=== PATIENT | male | born 1955 | race Caucasian/White ===

== ENCOUNTER 2017-02-04 10:07 | Inpatient (IN) | payer BC ==
[2017-02-04 10:28] LABS: Glucose,Whole Blood 94 mg/dL (75-99)
[2017-02-04] MEDS ORDERED: SODIUM CHLORIDE 0.9% 1,000 ML IV STA (10:39)
--- NOTE | 2017-02-04 10:42 | ED ---
General Adult HPI - General Chief complaint: Neuro Symptoms/Deficit Stated complaint: memory, visual disturbance, dizziness, headache Time Seen by Provider: 02/04/17 10:33 Source: patient Mode of arrival: wheelchair Limitations: no limitations - History of Present Illness Initial comments: This 61-year-old white male presents with a complaint of having some neurologic complaints. He states that he has had a mild bifrontal headache for the past couple of days. He developed some left arm numbness that went from the end of his fingers all the way up into his left jaw. He also had some slurring of his speech and states that he could not spell words well. He complains of some short-term memory loss. He states that he lost the right side of his lateral vision in both eyes. The onset of symptoms was at approximately 8:00 this morning and has subsequently resolved. He denies any history of CVA or TIA. He denies any weakness. There is no chest pain or shortness of breath. There is no leg pain or swelling. No other complaints or modifying factors. - Related Data Home Medications Medication Instructions Recorded Confirmed Montelukast [Singulair] 10 mg PO HS 12/20/14 02/04/17 Meloxicam [Mobic] 7.5 mg PO DAILY 02/04/17 02/04/17 predniSONE 2.5 mg PO DAILY 02/04/17 02/04/17 Allergies Allergy/AdvReac Type Severity Reaction Status Date / Time Penicillins AdvReac Unknown Verified 02/04/17 11:09 Childhood Review of Systems ROS Statement: Those systems with pertinent positive or pertinent negative responses have been documented in the HPI. ROS Other: All systems not noted in ROS Statement are negative. Past Medical History Past Medical History: Asthma History of Any Multi-Drug Resistant Organisms: None Reported Past Surgical History: No Surgical Hx Reported Past Psychological History: No Psychological Hx Reported Smoking Status: Never smoker Past Alcohol Use History: Rare Past Drug Use History: None Reported General Exam - General Exam Comments Initial Comments: GENERAL: The patient is well nourished and well hydrated. VITAL SIGNS: Heart rate, blood pressure, respiratory rate reviewed as recorded in nurse's notes. EYES: Pupils are round and reactive. Extraocular movements are intact. No conjunctival / lid redness or swelling. ENT: No external evidence of injury, swelling, or ecchymosis. Airway is patent. Throat is clear. NECK: Nontender. No swelling or evidence of injury. No subcutaneous emphysema. Trachea is midline. No thyroid mass. HEART: Regular rate and rhythm. Good peripheral pulses. LUNGS/CHEST: Breath sounds clear and equal bilaterally. No rales, rhonchi, or wheezes. No ecchymosis, subcutaneous emphysema, or tenderness. ABDOMEN: Abdomen soft without tenderness. No palpable masses or organomegaly. No peritoneal signs. No abdominal wall swelling or ecchymosis. EXTREMITIES: No extremity tenderness. Normal muscle tone and function. No thoracolumbar tenderness. NEUROLOGIC: Sensation is grossly intact. Cranial nerve exam reveals face is symmetrical, tongue is midline, speech is clear. SKIN: No abrasions or ecchymosis is noted. No induration or masses noted. PSYCHIATRIC: Alert and oriented. Appropriate behavior and judgment. Limitations: no limitations Course Vital Signs 02/04/17 10:12 Temperature 97.8 F Pulse Rate 78 Respiratory 18 Rate Blood Pressure 175/81 O2 Sat by Pulse 98 Oximetry Medical Decision Making - Medical Decision Making The patient was seen and examined. All diagnostics were reviewed. The EKG shows a sinus bradycardia at a rate of 55. There is no acute ST-T wave changes noted. The HI interval is 146, QRS duration is 82, and the QTc interval is 373. An IV is started and he is mildly hydrated. A computed tomography scan of the brain as well as laboratory is ordered. The laboratory came back essentially within normal limits. The computed tomography scan of the brain was negative for acute processes but does show pansinusitis. He does relate that he's had significant problems with his sinuses and is currently taking Stephy-D with some relief. This is been a chronic problem for him. Overall, the possibility of a TIA certainly is plausible and it is felt as though he benefit from admission to the hospital for further treatment. He is agreeable with this plan. Case will be discussed with internal medicine and he will be admitted for further workup and specialty consultation. - Lab Data Result diagrams: 02/04/17 10:20 02/04/17 10:20 Lab Results 02/04/17 02/04/17 02/04/17 Range/Units 10:20 10:20 10:20 WBC 8.6 (3.8-10.6) k/uL RBC 5.34 (4.30-5.90) m/uL Hgb 16.9 (13.0-17.5) gm/dL Hct 51.1 (39.0-53.0) % MCV 95.6 (80.0-100.0) fL MCH 31.6 (25.0-35.0) pg MCHC 33.1 (31.0-37.0) g/dL RDW 13.5 (11.5-15.5) % Plt Count 186 (150-450) k/uL Neutrophils % 64 % Lymphocytes % 21 % Monocytes % 8 % Eosinophils % 4 % Basophils % 1 % Neutrophils # 5.6 (1.3-7.7) k/uL Lymphocytes # 1.8 (1.0-4.8) k/uL Monocytes # 0.7 (0-1.0) k/uL Eosinophils # 0.3 (0-0.7) k/uL Basophils # 0.1 (0-0.2) k/uL PT (9.0-12.0) sec INR (<1.1) APTT (22.0-30.0) sec Sodium 141 (137-145) mmol/L Potassium 4.3 (3.5-5.1) mmol/L Chloride 106 (98-107) mmol/L Carbon Dioxide 25 (22-30) mmol/L Anion Gap 10 mmol/L BUN 14 (9-20) mg/dL Creatinine 1.10 (0.66-1.25) mg/dL Est GFR (MDRD) Af Amer >60 (>60 ml/min/1.73 sqM) Est GFR (MDRD) Non-Af >60 (>60 ml/min/1.73 sqM) Glucose 95 (74-99) mg/dL POC Glucose (mg/dL) (75-99) mg/dL POC Glu Ditch Rider ID Calcium 9.6 (8.4-10.2) mg/dL Total Bilirubin 1.0 (0.2-1.3) mg/dL AST 23 (17-59) U/L ALT 41 (21-72) U/L Alkaline Phosphatase 72 (38-126) U/L Total Creatine Kinase 71 (55-170) U/L CK-MB (CK-2) 1.1 (0.0-2.4) ng/mL CK-MB (CK-2) Rel Index 1.5 Troponin I <0.012 (0.000-0.034) ng/mL Total Protein 7.4 (6.3-8.2) g/dL Albumin 4.6 (3.5-5.0) g/dL 02/04/17 02/04/17 Range/Units 10:20 10:26 WBC (3.8-10.6) k/uL RBC (4.30-5.90) m/uL Hgb (13.0-17.5) gm/dL Hct (39.0-53.0) % MCV (80.0-100.0) fL MCH (25.0-35.0) pg MCHC (31.0-37.0) g/dL RDW (11.5-15.5) % Plt Count (150-450) k/uL Neutrophils % % Lymphocytes % % Monocytes % % Eosinophils % % Basophils % % Neutrophils # (1.3-7.7) k/uL Lymphocytes # (1.0-4.8) k/uL Monocytes # (0-1.0) k/uL Eosinophils # (0-0.7) k/uL Basophils # (0-0.2) k/uL PT 11.1 (9.0-12.0) sec INR 1.1 (<1.1) APTT 23.5 (22.0-30.0) sec Sodium (137-145) mmol/L Potassium (3.5-5.1) mmol/L Chloride (98-107) mmol/L Carbon Dioxide (22-30) mmol/L Anion Gap mmol/L BUN (9-20) mg/dL Creatinine (0.66-1.25) mg/dL Est GFR (MDRD) Af Amer (>60 ml/min/1.73 sqM) Est GFR (MDRD) Non-Af (>60 ml/min/1.73 sqM) Glucose (74-99) mg/dL POC Glucose (mg/dL) 94 (75-99) mg/dL POC Glu Ditch Rider ID McDaid, Maria Luz Calcium (8.4-10.2) mg/dL Total Bilirubin (0.2-1.3) mg/dL AST (17-59) U/L ALT (21-72) U/L Alkaline Phosphatase (38-126) U/L Total Creatine Kinase (55-170) U/L CK-MB (CK-2) (0.0-2.4) ng/mL CK-MB (CK-2) Rel Index Troponin I (0.000-0.034) ng/mL Total Protein (6.3-8.2) g/dL Albumin (3.5-5.0) g/dL Disposition Clinical Impression: Headache, Left upper extremity numbness, Transient visual disturbance, bilateral, Slurred speech, TIA (transient ischemic attack), Pansinusitis, Allergic sinusitis Disposition: ADMITTED IP TO THIS HOSP Condition: Fair Time of Disposition: 12:01 Decision Date: 02/04/17 Decision Time: 12:01
[2017-02-04 10:53] LABS: Basophils # (A) 0.1 k/uL (0-0.2); Basophils % (A) 1 %; CHCM 33.7; Eosinophils # (A) 0.3 k/uL (0-0.7); Eosinophils % (A) 4 %; HCT 51.1 % (39.0-53.0); HDW 2.37; HGB 16.9 gm/dL (13.0-17.5); Luc # (Auto) 0.22; Luc % (Auto) 3; Lymphocytes # (A) 1.8 k/uL (1.0-4.8); Lymphocytes % (A) 21 %; MCH 31.6 pg (25.0-35.0); MCHC 33.1 g/dL (31.0-37.0); MCV 95.6 fL (80.0-100.0); Mean Platelet Volume 7.2; Monocytes # (A) 0.7 k/uL (0-1.0); Monocytes % (A) 8 %; Neutrophils # (A) 5.6 k/uL (1.3-7.7); Neutrophils % (A) 64 %; RBC 5.34 m/uL (4.30-5.90); RDW 13.5 % (11.5-15.5); WBC 8.6 k/uL (3.8-10.6); WBC (Perox) 8.03
[2017-02-04 11:01] LABS: INR 1.1 (<1.1); Partial Thromboplastin Time 23.5 sec (22.0-30.0); Prothrombin Time 11.1 sec (9.0-12.0)
[2017-02-04 11:04] LABS: ALT 41 U/L (21-72); AST 23 U/L (17-59); Alkaline Phosphatase 72 U/L (38-126); Anion Gap 10 mmol/L; Blood Urea Nitrogen 14 mg/dL (9-20); Calcium 9.6 mg/dL (8.4-10.2); Carbon Dioxide 25 mmol/L (22-30); Chloride 106 mmol/L (98-107); Glucose 95 mg/dL (74-99); Non-African American GFR(MDRD) >60 (>60 ml/min/1.73 sqM); Potassium 4.3 mmol/L (3.5-5.1); Sodium 141 mmol/L (137-145); Total Protein 7.4 g/dL (6.3-8.2)
--- NOTE | 2017-02-04 11:08 | CT ---
EXAMINATION TYPE: CT brain wo con DATE OF EXAM: 02/04/2017 COMPARISON: 12/20/2014 INDICATION: Dizziness and blurred vision. DLP: 1024.00 mGycm, Automated exposure control for dose reduction was used. CONTRAST: None CT of the brain is performed utilizing 3 mm thick sections through the posterior fossa and 3 mm thick sections through the remaining calvarium. Study is performed within 24 hours of arrival to the hosp [facility]. No abnormal hyperdensity is present to suggest an acute intracranial hemorrhage. No mass lesion is evident. No acute infarcts are evident. Mild deep white matter hypodensity is present likely on the basis of c hronic white matter ischemic changes. Findings appear stable from comparison. Ventricles and sulci are appropriate for the patient age. There is increasing opacification of the maxillary sinus. There is increasing opacification through t he ethmoid air cells. Frontal sinus on the left has some developing mucosal thickening. Inferior righ t frontal mucosal thickening is present. Mastoid air cells are clear. IMPRESSIONS: 1. Minimal stable periventricular white matter ischemic changes with age-related atrophy. 2. Increasing mucosal thickening through the maxillary sphenoid and frontal sinuses.
[2017-02-04 11:15] LABS: Creatine Kinase 71 U/L (55-170)
[2017-02-04 11:26] LABS: Creatine Kinase MB 1.1 ng/mL (0.0-2.4); Troponin I <0.012 ng/mL (0.000-0.034)
[2017-02-04] MEDS ORDERED: ASPIRIN 81 MG CHEW PO STA (11:59)
--- NOTE | 2017-02-04 14:58 | US ---
EXAMINATION TYPE: US carotid duplex BILAT DATE OF EXAM: 02/04/2017 COMPARISON: NONE CLINICAL HISTORY: Stenosis. Short term memory loss, right sided vision loss this morning, no HTN EXAM MEASUREMENTS: RIGHT: Peak Systolic Velocity (PSV) cm/sec ----- Right CCA: 60.8 ----- Right ICA: 87.7 ----- Right ECA: 88.8 ICA/CCA ratio: 1.4 RIGHT: End Diastole cm/sec ----- Right CCA: 15.4 ----- Right ICA: 24.9 ----- Right ECA: 15.0 LEFT: Peak Systolic Velocity (PSV) cm/sec ----- Left CCA: 75.6 ----- Left ICA: 87.7 ----- Left ECA: 91.0 ICA/CCA ratio: 1.2 LEFT: End Diastole cm/sec ----- Left CCA: 18.3 ----- Left ICA: 29.3 ----- Left ECA: 12.8 VERTEBRALS (direction of flow): Right Vertebral: Antegrade Left Vertebral: Antegrade Bilateral wall thickening. No significant stenosis or elevated velocities seen. Plaque seen in righ t and left bulb. Grayscale images show mild peripheral plaque at bilateral carotid bulbs. Velocity measurements and ra tios are within normal limits in visualized portion of both internal carotid arteries. IMPRESSION: No hemodynamically significant stenosis is seen in either internal carotid artery.
--- NOTE | 2017-02-04 18:58 | P.CNNES ---
History of Present Illness Consult date: 02/04/17 History of Present Illness: The patient is 61-year-old man with history of episodic numbness of the left hand and arm and lower face. He is had these episodes every 2 months for the last 8 months. These last for about 30 minutes. The episodes usually consist of a tingling sensation which travels from his left fingertips up his arm to the left jaw area followed by sometimes an unusual taste in his mouth and some visual blind spots. The entire episode will last for 30 minutes and during those 30 minutes he has difficulties concentrating however he is awake alert and able to speak to people. Yesterday's episode that brought him to the emergency room was slightly different in that he instead of having the patchy blind spots he had a what he describes as possible hemianopsia on the left. He sometimes does get headaches after these episodes. Today he is having a sinus headache. The patient had a carotid ultrasound in the emergency room which was unremarkable. He had a CAT scan of the brain which showed some sinus inflammation only. He states he takes baby aspirin regularly. He states his been hospitalized once before for the similar attack. Is unaware of any precipitating cause for these episodes. Review of Systems Constitutional: Denies chills, Denies fever Eyes: denies blurred vision, denies pain Cardiovascular: Denies chest pain, Denies shortness of breath Respiratory: Denies cough Gastrointestinal: Denies abdominal pain, Denies diarrhea, Denies nausea, Denies vomiting Musculoskeletal: Denies myalgias Neurological: Denies numbness, Denies weakness Psychiatric: Denies anxiety, Denies depression Past Medical History Past Medical History: Asthma, COPD, GERD/Reflux, Osteoarthritis (OA) Additional Past Medical History / Comment(s): Hepatitis B after blood transfusion when he had polio at the age of 2 or 3 yrs, pancreatitis once, colon benign polyp, diverticular dx, chronic sinus problems-takes prednisone small dose daily, arthritis bilateral knees and in other multiple joints. History of Any Multi-Drug Resistant Organisms: None Reported Past Surgical History: Orthopedic Surgery, Tonsillectomy Additional Past Surgical History / Comment(s): Bilateral arthroscopic knee surgery, colonoscopy with benign polypectomy, EGD, sinus surgery, vasectomy. Past Anesthesia/Blood Transfusion Reactions: No Reported Reaction Additional Past Anesthesia/Blood Transfusion Reaction / Comment(s): Pt received blood when he was a small child. Past Psychological History: No Psychological Hx Reported Additional Psychological History / Comment(s): Pt resides with his girlfriend. He is independent. Smoking Status: Never smoker Past Alcohol Use History: Occasional Past Drug Use History: None Reported - Past Family History Father Family Medical History: COPD Additional Family Medical History / Comment(s): Father was a smoker. He at the age of 74 or 75yrs. Mother Family Medical History: COPD Additional Family Medical History / Comment(s): Mother is living. She is a smoker. She uses oxygen. Medications and Allergies Home Medications Medication Instructions Recorded Confirmed Type Montelukast [Singulair] 10 mg PO HS 12/20/14 02/04/17 History Meloxicam [Mobic] 7.5 mg PO DAILY 02/04/17 02/04/17 History predniSONE 2.5 mg PO DAILY 02/04/17 02/04/17 History Allergies Allergy/AdvReac Type Severity Reaction Status Date / Time Penicillins AdvReac Unknown Verified 02/04/17 11:09 Childhood Physical Examination - Vital Signs Vital Signs: Vital Signs Temp Pulse Pulse Resp BP BP Pulse Ox 02/04/17 16:00 98.2 F 59 L 18 122/71 97 02/04/17 13:20 97.9 F 57 L 18 137/80 98 02/04/17 12:50 97.8 F 51 L 18 156/70 02/04/17 12:21 53 L 18 129/65 97 02/04/17 10:12 97.8 F 78 18 175/81 98 Intake and Output 02/04/17 02/04/17 02/04/17 06:59 14:59 22:59 Intake Total 140 Balance 140 Intake: Oral 140 Other: Weight 90.718 kg Patient Weight 02/05/17 06:59 Weight 90.718 kg - Constitutional General appearance: average body habitus - EENT EENT: PERRL, hearing intact, vision intact - Respiratory Respiratory: lungs clear - Cardiovascular Cardiovascular: regular rate, normal S1, normal S2 - Neurologic Mental status she was awake alert and oriented 3 her speech was fluent there was no a aphasia or dysarthria Cranial nerve examination: PERRL, EOMI, VFF, V1/V2/V3 grossly intact, face symmetric, tongue midline Speech examination: intact Detailed motor examination: grossly full strength in all extremities Reflexes: 2+: knee - Psychiatric Psychiatric: mood/affect appropriate Results - Laboratory Findings CBC and BMP: 02/04/17 10:20 02/04/17 10:20 Assessment and Plan (1) TIA (transient ischemic attack) Status: Acute Code(s): G45.9 - TRANSIENT CEREBRAL ISCHEMIC ATTACK, UNSPECIFIED (2) Transient visual disturbance, bilateral Status: Acute Code(s): H53.9 - UNSPECIFIED VISUAL DISTURBANCE (3) Headache Status: Acute Code(s): R51 - HEADACHE Plan: The patient is a 61-year-old man who is been having episodic periodic episodes of transient left arm and face numbness associated with some taste disturbance and visual distortion lasting for 30 minutes. During these 30 minutes he has some difficulty concentrating but there is no loss of awareness. Yesterday's visual disturbance was different from prior episodes so he came to the emergency room. He lost half of field of vision and left arm and right eye yesterday. The patient is admitted to the hospital with possible TIA. He is having 8 stroke workup including carotid ultrasound and echocardiogram. He will also have an EEG to rule out sensory seizures. His headaches are likely related to sinusitis rather than comp located migraine. He will should get an MRI which can be done outpatient. He was advised to increase his aspirin dose from baby aspirin to adult dose.
[2017-02-04] MEDS: FAMOTIDINE 20 MG/2 ML VIAL IV SCH (20:55)
[2017-02-04] MEDS ORDERED: MONTELUKAST 10 MG TAB PO SCH (21:00)
[2017-02-05 06:01] LABS: Basophils # (A) 0.1 k/uL (0-0.2); Basophils % (A) 1 %; CH 32.1; Eosinophils # (A) 0.4 k/uL (0-0.7); Eosinophils % (A) 6 %; HCT 44.7 % (39.0-53.0); HDW 2.41; HGB 15.6 gm/dL (13.0-17.5); Luc # (Auto) 0.19; Luc % (Auto) 3; Lymphocytes # (A) 2.2 k/uL (1.0-4.8); Lymphocytes % (A) 30 %; MCH 33.1 pg (25.0-35.0); MCV 94.7 fL (80.0-100.0); Mean Platelet Volume 7.2; Monocytes # (A) 0.6 k/uL (0-1.0); Monocytes % (A) 8 %; Neutrophils # (A) 3.7 k/uL (1.3-7.7); Neutrophils % (A) 52 %; RBC 4.72 m/uL (4.30-5.90); RDW 13.1 % (11.5-15.5); WBC 7.1 k/uL (3.8-10.6); WBC (Perox) 6.87
[2017-02-05 06:10] LABS: Anion Gap 9 mmol/L; Blood Urea Nitrogen 11 mg/dL (9-20); Calcium 8.9 mg/dL (8.4-10.2); Carbon Dioxide 23 mmol/L (22-30); Chloride 110 mmol/L (98-107); Cholesterol 158 mg/dL (<200); Glucose 96 mg/dL (74-99); HDL Cholesterol 59 mg/dL (40-60); Non-African American GFR(MDRD) >60 (>60 ml/min/1.73 sqM); Potassium 4.4 mmol/L (3.5-5.1); Sodium 142 mmol/L (137-145); Triglycerides 79 mg/dL (<150)
[2017-02-05] MEDS: FAMOTIDINE 20 MG/2 ML VIAL IV SCH (07:56)
[2017-02-05] MEDS ORDERED: predniSONE 2.5 MG TAB PO SCH (09:00)
[2017-02-05] MEDS ORDERED: ENOXAPARIN 40 MG/0.4 ML SYRINGE SQ SCH (09:00)
[2017-02-05] MEDS ORDERED: ASPIRIN 325 MG TAB PO SCH (09:00)
[2017-02-05] MEDS ORDERED: MELOXICAM 7.5 MG TAB PO SCH (09:00)
[2017-02-05 09:19] VITALS: RESP 18
--- NOTE | 2017-02-05 09:32 | HP ---
DATE OF ADMISSION: 02/04/2017 CHIEF COMPLAINT: Numbness of the left arm, headaches and numbness of left toe. HISTORY OF PRESENT ILLNESS: This 61-year-old gentleman with a past medical history of multiple medical problems, including: History of asthma, COPD, GI bleed, hepatitis B, history of pancreatitis. History of chronic sinus problems. History of degenerative joint disease. History of DJD, being followed by Dr. Hutchison in the outpatient setting was complaining of numbness of the left arm which actually starts in the tip of the arm, radiating proximally at least five times lasting for a few minutes on and the patient came to [facility] and admitted to the hospital for further evaluation and treatment. Shortness of breath and other symptomatology at presentation which include: Headache, and as well as some slurring of speech. The patient also symptoms and because of increasing difficulties the patient came to [facility] and admitted to the hospital for further evaluation and treatment. On admission, the CAT scan of the brain was done, which showed minimal stable periventricular white matter changes increasing mucosal thickening of the maxillary sinus and the carotid Doppler was also done, which showed no hemodynamically significant stenosis. Neurology consultation by Dr. Melly Guzman is underway in which possibility of transient ischemic attack was also considered. Sensory cessation is a possibility according neurology. No history of fever, rigors or chills. No hematochezia, melena at this time. PAST MEDICAL HISTORY: History of asthma, COPD, GERD, DJD, hepatitis B. History of DJD. Medications prior to admission include: 1. Prednisone 2.5 mg daily. 2. Singulair 10 mg q.6h. 3. Mobic 7.5 daily. ALLERGIES: PENICILLIN. FAMILY HISTORY: History of COPD in the family. SOCIAL HISTORY: No history of smoking, occasional alcohol intake. REVIEW OF SYSTEMS: ENT: No diminishing hearing. No diminished vision. Otherwise as mentioned earlier. CARDIOVASCULAR: No angina or palpitations. RESPIRATORY: No cough. No hemoptysis. GI: No nausea. No vomiting. : No dysuria. Nervous system: As mentioned earlier. ALLERGY/IMMUNOLOGY: No asthma or hayfever. MUSCULOSKELETAL: As mentioned earlier. HEMATOLOGY/ONCOLOGY: No history of anemia. ENDOCRINE: No history of diabetes mellitus or hypothyroidism. CONSTITUTIONAL: As mentioned earlier. DERMATOLOGY: Negative. RHEUMATOLOGY: As mentioned earlier. PSYCHIATRY: As mentioned earlier. PHYSICAL EXAMINATION: The patient is alert and oriented times three. Pulse 58. Blood pressure 120/61. Respirations 18, temperature 97.4, pulse ox 94% on room air. HEENT: Conjunctivae normal. Oral mucosa moist. NECK: No jugular venous distention. No carotid bruits. No lymph node enlargement. CARDIOVASCULAR SYSTEM: S1, S2 muffled. No S3, no S4. RESPIRATORY: Breath sounds diminished at the bases. No rhonchi, no crackles. ABDOMEN: Soft, nontender. No mass palpable. Legs: No edema. No swelling. Nervous system: Higher function as mentioned. Cranial nerves 2 thru 12 grossly intact. No nystagmus. No diplopia. Moves all four limbs. No sensory abnormality. Power normal. Reflexes are normal. LYMPHATICS: No lymph nodes palpable in the neck, axillae or groin. SKIN: No ulcer, rash or bleeding. JOINTS: No active deforming arthropathy. LABS: CBC within normal limits. CMP within normal limits. ASSESSMENT: 1. Recurrent numbness of the left upper limb, possible transient ischemic attack. 2. Rule out sensory seizures. 3. Obesity body mass index 31.9. 4. Asthma, chronic obstructive pulmonary disease. 5. Gastroesophageal reflux disease. 6. Degenerative joint disease . 7. History of hepatitis B. 8. History of pancreatitis. 9. History of diverticular disease. 10. History of chronic sinusitis. 11. History of degenerative joint disease. 12. History of colonic polyps. RECOMMENDATIONS AND DISCUSSION: In this 61-year-old gentleman presented with multiple complex medical issues, we will monitor the patient closely, continue the current medications, continue with symptomatic treatment. Continue with neurovascular work-up. EEG. Rule out seizures. Antiplatelet agents. Otherwise, DVT prophylaxis. Neurology consultation. Resume the home medications. Guarded prognosis because of multiple complex medical issues. Further recommendations to follow. A copy of dictation forwarded to Dr. Hutchison who is the primary physician. See orders for details. MTDD
[2017-02-05 13:46] VITALS: BP 123/62; PULSE 51; TEMP 97.8
--- NOTE | 2017-02-06 12:41 | DS ---
DATE OF ADMISSION: 02/04/2017 DATE OF DISCHARGE: 02/05/2017 FINAL DIAGNOSES: 1. Recurrent numbness of the left upper limb, possibly acute transient ischemic attack. 2. Rule out sensory seizures. 3. Obesity with body mass index of 31.9. 4. Asthma, chronic obstructive pulmonary disease, history. 5. History of gastroesophageal reflux disease. 6. History of degenerative joint disease. 7. History of Hepatitis B. 8. History of pancreatitis. 9. History of diverticular disease. 10. History of chronic sinusitis. 11. History of degenerative joint disease. 12. History of colonic polyps. DISCHARGE DISPOSITION: The patient will be discharged in stable condition with guarded prognosis. The patient is keen on going home. Discharge cleared by neurology. HISTORY OF PRESENT ILLNESS: This 61-year-old gentleman with a past medical history of multiple medical problems is being followed by Dr. Hutchison in the outpatient setting was admitted with recurrent numbness of the left upper limb, had possible transient ischemic attack. sensory seizure also consider by neurology. The patient improved significantly. On exam, vitals are stable. CARDIOVASCULAR: S1, S2. Abdomen soft. Nervous system: No focal deficits. Basic neurovascular work-up was negative. The patient is recommended outpatient MRI and neurology follow-up. The patient also recommended further cardiac work-up as well as possible evaluation of cervical spine as an outpatient if the results of the other tests are negative. DISCHARGE ADVICE AND MEDICATIONS: 1. Diet is cardiac low fat, low cholesterol. 2. Activity limited until follow-up. 3. Follow up with Dr. Hutchison in 2 to 3 days. 4. Follow up with Dr. Guzman in one week. 5. Outpatient MRI is recommended. 6. Medications will be as follows: Ecotrin 81 mg p.o. daily. 7. Pepcid 20 mg daily. 8. Mobic 7.5 daily. 9. Singulair 10 mg q.h.s. 10. Prednisone 2.5 mg daily. Once again, the patient will be discharged in a stable condition with guarded prognosis. MTDD
--- NOTE | 2017-02-06 12:43 | EEG ---
DATE OF SERVICE: 02/05/[address] Winter. INTERPRETING PHYSICIAN: Dr. Geena Guzman. INDICATIONS FOR EXAMINATION: This patient is a 61-year-old male being evaluated for TIA and episode of confusion. AGE: 61Y EEG FINDINGS: A routine 21-channel, awake digital EEG recording was accomplished utilizing the 10 to 20 international system with bipolar and referential montages. The background activity in the most alert resting state consists of a low to medium amplitude, fairly well-developed and well sustained 7 to 8 Hz activity over the posterior head regions. This posterior rhythm attenuates to eye opening. There is a small amount of low amplitude 18 to 20 Hz beta activity seen maximally over the anterior head regions. Muscle and movement artifact was observed on a few occasions during the tracing. Hyperventilation was not performed. Photic stimulation at flash frequencies of 2 to 30 Hz produced a good symmetrical occipital driving response. No epileptiform discharges were seen. IMPRESSION: This electroencephalogram is within normal limits for the patient's age. The electroencephalogram failed to reveal any focal, lateralized or epileptiform abnormalities. Clinical correlation is recommended.
--- NOTE | 2017-02-06 12:54 | ECHOF ---
Referral Reason:Thrombus MEASUREMENTS -------- HEIGHT: 170.2 cm WEIGHT: 90.7 kg BP: 156/70 IVSd: 1.3 cm (0.6 - 1.1) LVIDd: 4.9 cm (3.9 - 5.3) LVPWd: 1.2 cm (0.6 - 1.1) LVIDs: 2.8 cm RVIDd: 2.7 cm (< 3.3) LAESV Index (A-L): 20.32 ml/m Ao Diam: 3.2 cm (2.0 - 3.7) LA Diam: 3.6 cm (2.7 - 3.8) AV Cusp: 2.0 cm (1.5 - 2.6) EPSS: 0.5 cm MV E Catarino: 0.80 m/s MV DecT: 297 ms MV A Catarino: 0.79 m/s MV E/A Ratio: 1.02 RAP: 5.00 mmHg RVSP: 9.79 mmHg MV EF SLOPE: 116.80 mm/s (70 - 150) MV EXCURSION: 18.74 mm (> 18.000) FINDINGS -------- Resting bradycardia (HR<60bpm). This was a technically adequate study. There is mild concentric left ventricular hypertrophy. Overall left ventricular systolic function is normal with, an EF between 60 - 65 %. The right ventricle is normal in size and function. Normal LA size by volume 22+/-6 ml/m2. The right atrium is normal in size. Aortic valve is trileaflet and is mildly thickened. There is no evidence of aortic regurgitation. There is no evidence of aortic stenosis. The mitral valve leaflets are mildly thickened. There is trace mitral regurgitation. Trace tricuspid regurgitation present. The pulmonic valve was not well visualized. The aortic root size is normal. Normal inferior vena cava with normal inspiratory collapse consistent with estimated right atrial pressure of 5 mmHg. The pericardium is normal. There is no pericardial effusion. CONCLUSIONS -------- 1. Resting bradycardia (HR<60bpm). 2. The aortic root size is normal. 3. There is no pericardial effusion. 4. There is mild concentric left ventricular hypertrophy. 5. Overall left ventricular systolic function is normal with, an EF between 60 - 65 %. 6. Normal LA size by volume 22+/-6 ml/m2. 7. Aortic valve is trileaflet and is mildly thickened. 8. The mitral valve leaflets are mildly thickened. 9. There is trace mitral regurgitation. 10. Trace tricuspid regurgitation present. 11. The pulmonic valve was not well visualized. CHANCELLOR: Estuardo Esteban RDCS
== END 2017-02-05 16:22 | disposition home or self-care (01) | DRG 69 ==
LOC: EC 10:07 → 6SEL 12:24
PROVIDERS: ADMIT Hospitalist; ATTEND Hospitalist
DX: G45.9 Transient cerebral ischemic attack, unspecified (principal); G40.89 Other seizures; J44.9 Chronic obstructive pulmonary disease, unspecified; E66.9 Obesity, unspecified; J32.9 Chronic sinusitis, unspecified; K21.9 Gastro-esophageal reflux disease without esophagitis; K57.90 Diverticulosis of intestine, part unspecified, without perforation or abscess without bleeding; M15.9 Polyosteoarthritis, unspecified; R51 Headache; Z68.31 Body mass index [BMI] 31.0-31.9, adult; Z79.899 Other long term (current) drug therapy; Z88.0 Allergy status to penicillin
CPT/HCPCS: 36415; 70450; 80048; 80053; 80061; 82550; 82553; 84484; 85025; 85610; 85730; 93005; 93306; 93880; 95816; 96360; 96361; 99285

== ENCOUNTER → 2017-03-15 | Outpatient (CLI) | payer BC ==
--- NOTE | 2017-03-15 08:26 | MR ---
EXAMINATION TYPE: MR brain wo con DATE OF EXAM: 03/15/2017 COMPARISON: Correlation CT 02/04/2017 HISTORY: 61-year-old male transient cerebral ischemia, left arm numbness. TECHNIQUE: Multiplanar, multisequence images of the brain and brainstem were acquired without IV con trast. Diffusion weighted imaging is performed. FINDINGS: No evidence for acute infarction, hemorrhage, mass, mass effect, midline shift, herniation, effacemen t of basal cisterns, or extra-axial fluid collection. There is moderate generalized supratentorial volume loss with mild secondary prominence to the ventri cular system. No hydrocephalus. Major intracranial flow voids are intact. T2/FLAIR weighted sequences show moderate scattered foci of bright white matter change located in the subcortical, deep, and periventricular white matter of both cerebral hemispheres. These number appr oximately 40-50 on each side. Midline structures demonstrate normal morphology. The craniocervical junction is normal. There is moderate mucosal thickening throughout the paranasal sinuses sparing the sphenoid sinuses. P ossible trace air-fluid level in the left maxillary sinus. Globes are intact. IMPRESSION: 1. Moderate atrophy and moderate scattered burden of T2 bright white matter change likely relating to chronic small vessel ischemic disease. 2. No acute intracranial abnormality seen. 3. Moderate chronic paranasal sinus disease. Correlate to exclude superimposed acute sinusitis given trace air-fluid level in the left maxillary sinus.
== END | disposition home or self-care (01) ==
LOC: RADMRIMAIN 07:05
PROVIDERS: ATTEND Psychiatry & Neurology Neurology
DX: G31.9 Degenerative disease of nervous system, unspecified (principal); R90.89 Other abnormal findings on diagnostic imaging of central nervous system; J32.9 Chronic sinusitis, unspecified
CPT/HCPCS: 70551

== ENCOUNTER 2017-04-11 10:06 | Emergency (ER) | payer BC ==
[2017-04-11] MEDS ORDERED: predniSONE 20 MG TAB PO STA (10:40)
[2017-04-11] MEDS ORDERED: SODIUM CHLORIDE 0.9% 1,000 ML IV ONE (10:40)
[2017-04-11] MEDS ORDERED: KETOROLAC 30 MG/ML 1 ML VIAL IVP STA (10:40)
[2017-04-11] MEDS ORDERED: IPRATROPIUM-ALBUTEROL 3 ML NEB INHALATION STA (10:40)
--- NOTE | 2017-04-11 10:47 | ED ---
General Adult HPI - General Chief complaint: Abdominal Pain Stated complaint: YUSRA/Back Pain/Abdominal Pain Time Seen by Provider: 04/11/17 10:28 Source: patient Mode of arrival: ambulatory Limitations: no limitations - History of Present Illness Initial comments: Patient is a 61-year-old male who presents with several complaints today including sinus pressure, rhinorrhea, shortness of breath, and abdominal pain. Patient states this started last Tuesday when [place] [facility] to go camping. Patient states that he did not leave the camper the entire time because he felt bad. Patient describes his symptoms as sinus pressure with clear rhinorrhea. Patient has a history of asthma and states that he feels it is hard for him to get a breath in. Patient also admits to cough and says that he is producing yellow tinted sputum. Patient complains of lower abdominal pain today as well. With all of these symptoms patient cannot identify any aggravating or alleviating factors. Timing is constant. Patient denies any fevers, or chest pain. Patient denies any exertional nature of his symptoms. Of note, patient is chronically on 2.5 mg of prednisone daily for ongoing sinus problems. MD Complaint: Sinus pressure, rhinorrhea, abdominal pain Onset/Timin -: days(s) Location: head, abdomen Radiation: non-radiation - Related Data Home Medications Medication Instructions Recorded Confirmed Montelukast [Singulair] 10 mg PO HS 12/20/14 04/11/17 Meloxicam [Mobic] 7.5 mg PO DAILY 02/04/17 04/11/17 predniSONE 2.5 mg PO DAILY 02/04/17 04/11/17 Albuterol Inhaler [Ventolin Hfa 1 - 2 puff INHALATION RT-Q6H PRN 04/11/17 Inhaler] Budesonide/Formoterol Fumarate 1 puff INHALATION RT-BID 04/11/17 04/11/17 [Symbicort 80-4.5 Mcg Inhaler] Previous Rx's Medication Instructions Recorded Aspirin EC [Ecotrin Low Dose] 81 mg PO DAILY #30 tablet. 02/05/17 Allergies Allergy/AdvReac Type Severity Reaction Status Date / Time Penicillins AdvReac Unknown Verified 04/11/17 10:45 Childhood Review of Systems ROS Statement: Those systems with pertinent positive or pertinent negative responses have been documented in the HPI. ROS Other: All systems not noted in ROS Statement are negative. Constitutional: Denies: fever, chills Eyes: Denies: vision change ENT: Reports: congestion. Denies: ear pain, throat pain Respiratory: Reports: cough, dyspnea Cardiovascular: Denies: chest pain, orthopnea, edema Endocrine: Denies: fatigue Gastrointestinal: Reports: abdominal pain. Denies: nausea, vomiting, diarrhea, constipation Genitourinary: Denies: urgency, dysuria Musculoskeletal: Reports: back pain Skin: Denies: rash Neurological: Denies: headache, weakness, numbness, paresthesias, abnormal gait Past Medical History Past Medical History: Asthma, COPD, GERD/Reflux, Osteoarthritis (OA) Additional Past Medical History / Comment(s): Hepatitis B after blood transfusion when he had polio at the age of 2 or 3 yrs, pancreatitis once, colon benign polyp, diverticular dx, chronic sinus problems-takes prednisone small dose daily, arthritis bilateral knees and in other multiple joints. History of Any Multi-Drug Resistant Organisms: None Reported Past Surgical History: Orthopedic Surgery, Tonsillectomy Additional Past Surgical History / Comment(s): Bilateral arthroscopic knee surgery, colonoscopy with benign polypectomy, EGD, sinus surgery, vasectomy. Past Anesthesia/Blood Transfusion Reactions: No Reported Reaction Additional Past Anesthesia/Blood Transfusion Reaction / Comment(s): Pt received blood when he was a small child. Past Psychological History: No Psychological Hx Reported Smoking Status: Never smoker Past Alcohol Use History: Occasional Past Drug Use History: None Reported - Past Family History Father Family Medical History: COPD Additional Family Medical History / Comment(s): Father was a smoker. He at the age of 74 or 75yrs. Mother Family Medical History: COPD Additional Family Medical History / Comment(s): Mother is living. She is a smoker. She uses oxygen. General Exam Limitations: no limitations General appearance: alert Head exam: Present: atraumatic, normocephalic Eye exam: Present: normal appearance ENT exam: Present: normal exam, normal oropharynx, mucous membranes moist, TM's normal bilaterally, normal external ear exam Neck exam: Present: normal inspection Respiratory exam: Present: decreased breath sounds, prolonged expiratory Cardiovascular Exam: Present: regular rate, normal rhythm, normal heart sounds GI/Abdominal exam: Present: soft, tenderness (Patient has tenderness in the lower abdomen.). Absent: distended Rectal exam: Present: deferred Extremities exam: Present: normal inspection Back exam: Present: normal inspection Neurological exam: Present: alert, oriented X3, CN II-XII intact Psychiatric exam: Present: normal affect, normal mood Skin exam: Present: warm, dry, intact Course Vital Signs 04/11/17 04/11/17 04/11/17 10:21 11:04 11:16 Temperature 98.9 F Pulse Rate 74 76 84 Respiratory 18 Rate Blood Pressure 154/70 O2 Sat by Pulse 95 Oximetry 04/11/17 04/11/17 11:18 12:34 Temperature 97.8 F Pulse Rate 55 L 55 L Respiratory 16 18 Rate Blood Pressure 131/76 138/66 O2 Sat by Pulse 96 Oximetry Medical Decision Making - Medical Decision Making Patient presents with several complaints including rhinorrhea, sinus pressure, abdominal pain and shortness of breath. Patient will get 60 mg of prednisone, breathing treatments, and be sent for a chest x-ray. An EKG will be performed. We'll send for electrolytes and complete metabolic panel. Imaging to be directed by lab work. EKG performed at 11:11 AM shows sinus bradycardia with a rate of 56 bpm. Segments appear to be within normal limits. There is no ST segment elevation or depressions. Gait she is otherwise nonspecific. 1:17 PM Laboratory evaluation this patient is unremarkable. Chest x-ray does not show any acute process. Reevaluation, patient states that he is feeling better after 3 breathing treatments and steroids. Patient will be treated for bronchitis on outpatient basis. He is instructed to follow-up with his primary care doctor in 3-5 days or to return to the emergency department if symptoms worsen. Vital signs remained stable in the emergency department. Patient is resting comfortably. He is agreeable with care plan, QUESTIONS are answered at this time. - Lab Data Result diagrams: 04/11/17 11:46 04/11/17 11:46 Lab Results 04/11/17 04/11/17 Range/Units 11:46 11:46 WBC 12.9 H (3.8-10.6) k/uL RBC 4.79 (4.30-5.90) m/uL Hgb 15.5 (13.0-17.5) gm/dL Hct 45.5 (39.0-53.0) % MCV 95.1 (80.0-100.0) fL MCH 32.5 (25.0-35.0) pg MCHC 34.2 (31.0-37.0) g/dL RDW 13.0 (11.5-15.5) % Plt Count 158 (150-450) k/uL Neutrophils % 71 % Lymphocytes % 16 % Monocytes % 8 % Eosinophils % 3 % Basophils % 0 % Neutrophils # 9.1 H (1.3-7.7) k/uL Lymphocytes # 2.1 (1.0-4.8) k/uL Monocytes # 1.0 (0-1.0) k/uL Eosinophils # 0.3 (0-0.7) k/uL Basophils # 0.0 (0-0.2) k/uL Sodium 139 (137-145) mmol/L Potassium 4.2 (3.5-5.1) mmol/L Chloride 105 (98-107) mmol/L Carbon Dioxide 25 (22-30) mmol/L Anion Gap 9 mmol/L BUN 18 (9-20) mg/dL Creatinine 1.20 (0.66-1.25) mg/dL Est GFR (MDRD) Af Amer >60 (>60 ml/min/1.73 sqM) Est GFR (MDRD) Non-Af >60 (>60 ml/min/1.73 sqM) Glucose 82 (74-99) mg/dL Calcium 9.2 (8.4-10.2) mg/dL Total Bilirubin 1.0 (0.2-1.3) mg/dL AST 15 L (17-59) U/L ALT 30 (21-72) U/L Alkaline Phosphatase 71 (38-126) U/L Total Protein 6.3 (6.3-8.2) g/dL Albumin 3.7 (3.5-5.0) g/dL Lipase 357 H (23-300) U/L Disposition Clinical Impression: Bronchitis, Reactive airway disease, Abdominal pain in male, Swallowed foreign body Disposition: HOME SELF-CARE Condition: Good Instructions: Acute Bronchitis (ED) Referrals: Evelina Hutchison MD [Primary Care Provider] - 1-2 days
--- NOTE | 2017-04-11 11:38 | XR ---
EXAMINATION TYPE: XR chest 2V DATE OF EXAM: 04/11/2017 COMPARISON: NONE HISTORY: Abdominal pain, nausea and sinus pressure/drainage. TECHNIQUE: Frontal and lateral views of the chest are obtained. FINDINGS: There is no focal air space opacity, pleural effusion, or pneumothorax seen. The cardiac silhouette size is within normal limits. The osseous structures are intact. Minimal degenerative ch anges of the thoracic spine are noted. IMPRESSION: No acute cardiopulmonary process.
[2017-04-11 11:59] LABS: Basophils % (A) 0 %; CH 31.8; CHCM 33.6; Eosinophils # (A) 0.3 k/uL (0-0.7); Eosinophils % (A) 3 %; HCT 45.5 % (39.0-53.0); HDW 2.43; HGB 15.5 gm/dL (13.0-17.5); Luc # (Auto) 0.38; Luc % (Auto) 3; Lymphocytes # (A) 2.1 k/uL (1.0-4.8); Lymphocytes % (A) 16 %; MCH 32.5 pg (25.0-35.0); MCHC 34.2 g/dL (31.0-37.0); MCV 95.1 fL (80.0-100.0); Mean Platelet Volume 7.5; Monocytes % (A) 8 %; Neutrophils # (A) 9.1 k/uL (1.3-7.7); Neutrophils % (A) 71 %; RBC 4.79 m/uL (4.30-5.90); WBC 12.9 k/uL (3.8-10.6); WBC (Perox) 13.21
[2017-04-11 12:17] LABS: ALT 30 U/L (21-72); AST 15 U/L (17-59); Alkaline Phosphatase 71 U/L (38-126); Anion Gap 9 mmol/L; Blood Urea Nitrogen 18 mg/dL (9-20); Calcium 9.2 mg/dL (8.4-10.2); Carbon Dioxide 25 mmol/L (22-30); Chloride 105 mmol/L (98-107); Glucose 82 mg/dL (74-99); Non-African American GFR(MDRD) >60 (>60 ml/min/1.73 sqM); Potassium 4.2 mmol/L (3.5-5.1); Sodium 139 mmol/L (137-145); Total Protein 6.3 g/dL (6.3-8.2)
[2017-04-11 12:35] VITALS: RESP 18; TEMP 97.8
[2017-04-11 13:53] VITALS: BP 139/67; PULSE 59
== END 2017-04-11 13:53 | disposition home or self-care (01) ==
LOC: EC 10:06
DX: J45.909 Unspecified asthma, uncomplicated (principal); R10.30 Lower abdominal pain, unspecified; T18.9XXA Foreign body of alimentary tract, part unspecified, initial encounter; M19.90 Unspecified osteoarthritis, unspecified site; Z79.1 Long term (current) use of non-steroidal anti-inflammatories (NSAID); Z79.51 Long term (current) use of inhaled steroids; Z79.899 Other long term (current) drug therapy; Z88.0 Allergy status to penicillin
CPT/HCPCS: 36415; 94640; 93005; 80053; 83690; 85025; 71020; 99284; 96374; 96361 ×3; J1885; J7512

== ENCOUNTER → 2017-05-27 | Outpatient (CLI) | payer BC ==
[2017-05-27 09:39] LABS: INR 1.1 (<1.2); Partial Thromboplastin Time 22.4 sec (22.0-30.0); Prothrombin Time 10.8 sec (9.0-12.0)
[2017-05-27 10:59] LABS: Hemoglobin A1C 5.9 % (4.2-6.1)
[2017-05-27 16:32] LABS: ANA w/Reflex to Titer NEGATIVE (NEGATIVE)
[2017-05-31 09:37] LABS: Lyme IgG/IgM 0.1 Index; Lyme IgG/IgM Interp NEGATIVE (NEGATIVE)
== END | disposition home or self-care (01) ==
LOC: LABWHC1 08:27
PROVIDERS: ATTEND Psychiatry & Neurology Neurology
DX: I67.9 Cerebrovascular disease, unspecified (principal); R93.8 Abnormal findings on diagnostic imaging of other specified body structures
CPT/HCPCS: 36415; 82607; 82747; 83036; 83090; 85610; 85613; 85652; 85730; 86038; 86147; 86618

== ENCOUNTER → 2017-07-13 | Outpatient (CLI) | payer BC ==
[2017-07-13 15:48] LABS: Basophils % (A) 1 %; Eosinophils # (A) 0.1 k/uL (0-0.7); Eosinophils % (A) 1 %; HCT 44.9 % (39.0-53.0); HDW 2.62; HGB 14.8 gm/dL (13.0-17.5); Luc % (Auto) 3; Lymphocytes # (A) 2.1 k/uL (1.0-4.8); Lymphocytes % (A) 28 %; MCHC 32.9 g/dL (31.0-37.0); Mean Platelet Volume 7.4; Monocytes # (A) 0.8 k/uL (0-1.0); Monocytes % (A) 11 %; Neutrophils # (A) 4.2 k/uL (1.3-7.7); Neutrophils % (A) 56 %; RBC 4.78 m/uL (4.30-5.90); RDW 13.3 % (11.5-15.5); WBC 7.4 k/uL (3.8-10.6); WBC (Perox) 7.72
[2017-07-13 15:58] LABS: INR 1.1 (<1.2); Prothrombin Time 11.3 sec (9.0-12.0)
[2017-07-13 15:59] LABS: Potassium 3.6 mmol/L (3.5-5.1)
== END | disposition home or self-care (01) ==
LOC: LABPAT 15:24
PROVIDERS: ATTEND Orthopaedic Surgery
DX: Z01.812 Encounter for preprocedural laboratory examination (principal); M17.11 Unilateral primary osteoarthritis, right knee
CPT/HCPCS: 36415; 80051; 85025; 85610; 85730; 87070

== ENCOUNTER → 2017-09-05 | Outpatient (CLI) | payer BC ==
[2017-09-05 12:14] LABS: Basophils # (A) 0.1 k/uL (0-0.2); Basophils % (A) 1 %; Eosinophils # (A) 0.1 k/uL (0-0.7); Eosinophils % (A) 1 %; HCT 43.3 % (39.0-53.0); Lymphocytes # (A) 1.7 k/uL (1.0-4.8); Lymphocytes % (A) 23 %; MCHC 32.4 g/dL (31.0-37.0); MCV 92.5 fL (80.0-100.0); Mean Platelet Volume 7.6; Monocytes # (A) 0.5 k/uL (0-1.0); Monocytes % (A) 6 %; Neutrophils % (A) 68 %; Platelet Count 206 k/uL (150-450); RBC 4.68 m/uL (4.30-5.90); RDW 13.2 % (11.5-15.5); WBC 7.4 k/uL (3.8-10.6)
[2017-09-05 12:20] LABS: INR 1.1 (<1.2); Prothrombin Time 10.8 sec (9.0-12.0)
[2017-09-05 12:22] LABS: Potassium 4.1 mmol/L (3.5-5.1)
== END | disposition home or self-care (01) ==
LOC: LABPAT 11:39
PROVIDERS: ATTEND Orthopaedic Surgery
DX: Z01.812 Encounter for preprocedural laboratory examination (principal); M17.12 Unilateral primary osteoarthritis, left knee
CPT/HCPCS: 36415; 80051; 85025; 85610; 85730; 87070

== ENCOUNTER 2017-09-12 12:29 | Inpatient (IN) | payer BC ==
[2017-09-07 11:12] VITALS: BMI 28.5
--- NOTE | 2017-09-11 19:03 | HP ---
HISTORY AND PHYSICAL REASON FOR ADMISSION: Surgery scheduled for 09/12/2017 HISTORY OF PRESENT ILLNESS: Ta Ortiz is a 61-year-old patient seen with symptomatic left knee osteoarthritis. We discussed treatment options. He elected to proceed with left total knee arthroplasty. Consent was obtained. PAST MEDICAL HISTORY: Gastroesophageal reflux disease, asthma. PAST SURGICAL HISTORY: Right total knee arthroplasty, knee arthroscopy. MEDICATIONS: Prilosec, Singulair, [place]. ALLERGIES: None reported. SOCIAL HISTORY: Patient denies current tobacco use. PHYSICAL EXAMINATION: Evaluation of left knee range of motion is -3 to 120 degrees. Tenderness along the medial joint line with a positive medial Matthew's. Ligaments are stable. Medial and patellofemoral crepitus with range of motion. Pain with patellofemoral compression. Hip rotation without pain. Distal neurovascular exam intact. RADIOGRAPHS: Left knee radiographs reveal severe medial moderate patellofemoral compartment osteoarthritis. IMPRESSION: 1. Left knee osteoarthritis. 2. Gastroesophageal reflux disease. PLAN: Left total knee arthroplasty. Surgery scheduled 09/12/2017. MMODL / IJN: [id number] /
[~2017-09-12 12:29] MED LIST: ACETAMINOPHEN TAB 500 MG TAB PO ONE; HYDROmorphone 0.5 MG/0.5 ML SYRINGE IVP PRN; MELOXICAM 7.5 MG TAB PO ONE; MIDAZOLAM 2 MG/2 ML VIAL IV PRN; MORPHINE SULFATE 4 MG/ML SYRINGE IV PRN; ONDANSETRON 4 MG/2 ML VIAL IVP PRN; TRANEXAMIC ACID 1,000 MG in SODIUM CHLORIDE 0.9% 50 ML IVPB ONE; ceFAZolin IN SWFI 2 GM/20 ML SYRINGE IVP ONE
[2017-09-12 13:03] LABS: Glucose,Whole Blood 80 mg/dL (75-99)
[2017-09-12] MEDS ORDERED: LIDOCAINE 1% 20 ML VIAL (10MG/ML) FOR IV START INTRADERMA ONE (13:04)
[2017-09-12] MEDS: LACTATED RINGERS 1,000 ML IV SCH ×4 (13:04→22:55)
[2017-09-12] MEDS ORDERED: ROPIVACAINE 1,100 MG, SODIUM CHLORIDE 0.9% 330 ML MISCELLANE PRN ×2 (13:22)
[2017-09-12] MEDS ORDERED: PROPOFOL 10 MG/ML 20 ML VIAL IV ONE (14:20)
[2017-09-12] MEDS ORDERED: MIDAZOLAM 2 MG/2 ML VIAL ONE (14:20)
[2017-09-12] MEDS ORDERED: ceFAZolin 1,000 MG in SODIUM CHLORIDE 0.9% 1,000 ML IRRIGATION ONE ×5 (14:20→15:54)
[2017-09-12] MEDS ORDERED: TRANEXAMIC ACID 1,000 MG/10 ML VIAL ONE (14:20)
[2017-09-12] MEDS ORDERED: LIDOCAINE 1% INJ 10MG/ML (20 ML MDV) ONE (14:20)
[2017-09-12] MEDS ORDERED: fentaNYL (PF) 50 MCG/ML 2 ML AMP ONE (14:20)
[2017-09-12] MEDS ORDERED: ePHEDrine SULFATE/0.9% NACL/PF 50 MG/5 ML SYRINGE IV ONE (14:20)
[2017-09-12] MEDS ORDERED: SODIUM CHLORIDE 0.9% 100 ML BAG ONE (14:20)
[2017-09-12] MEDS ORDERED: ROPIVACAINE 246.25 MG, EPINEPHrine 0.5 MG, KETOROLAC 30 MG, cloNIDine HCL/PF 80 MCG, WA... MISCELLANE ONE ×5 (14:32)
[2017-09-12] MEDS ORDERED: LACTATED RINGERS 1,000 ML IV ONE (15:16)
--- NOTE | 2017-09-12 16:34 | P.OP ---
Date of Procedure: 09/12/17 Preoperative Diagnosis: Left knee osteoarthritis Postoperative Diagnosis: Left knee osteoarthritis Procedure(s) Performed: Left total knee arthroplasty Implants: 1. Lou persona size 7 standard left cruciate retaining cemented femur 2. Lou persona size E left cemented tibia 3. Lou persona 11 mm medial congruent polyethylene tibial insert 4. Lou persona 38 mm all polyethylene cemented patella Anesthesia: regional (Adductor canal catheter), local, spinal Surgeon: Obed Campoverde Beck Tender #1: Nikolai Driver Estimated Blood Loss (ml): 45 Pathology: other (Bone) Condition: stable Disposition: PACU Indications for Procedure: 61-year-old patient seen with symptomatic left knee osteoarthritis. After treatment options were discussed, he elected to proceed with left total knee arthroplasty. Operative Findings: see description of procedure Description of Procedure: Patient was taken to the operative suite after having and adductor canal catheter placed by the department of anesthesia. Patient underwent a spinal anesthetic by the department of anesthesia. Patient was given preoperative IV intake antibiotics and TXA. A well-padded tourniquet was placed about the left lower extremity. The lower extremity was then prepped and draped in the normal sterile orthopedic fashion. The extremity was elevated, a tourniquet was insufflated to 350. A standard anterior incision was made sharply through skin. Dissection was taken down through the subcutaneous soft tissues down to the extensor mechanism. A medial arthrotomy was performed, patella was everted and knee was flexed. There was advanced osteoarthritis noted. A proximal tibial cutting guide was positioned. Proximal tibial cut was made. A distal intramedullary femoral cutting guide was positioned, distal femoral cut made. We placed the appropriate sizing guide and selected the appropriate size. A distal 4-in-1 femoral cutting block was positioned, distal femoral cuts were made. We now placed a trial femoral component into position, along with an appropriate size tibial tray and insert. We now took the knee through range of motion and had full extension good flexion and good overall soft tissue balance noted. The patella was everted and a flush cut made with patellar quad tendon. We templated the patella, appropriate drill holes were made. An appropriate trial patella was positioned, knee was taken through full range of motion with the patella tracking very nicely. The trial patella was removed. Drill holes were made through the femoral component. All trial components were removed after marking off the appropriate rotation of the tibia. Retractors were now positioned along the proximal tibia. An appropriate keel punch was made with the appropriate size tibial guide. At this point appropriate size implants were chosen and opened. The joint was irrigated copiously with pulse lavage mechanical irrigation. The posterior capsule was infiltrated with local analgesia. We mixed antibiotic methylmethacrylate. Once the methyl methacrylate was ready, the tibial component was cemented into place removing any excess methylmethacrylate. The femoral component was cemented into place removing the removing any excess methylmethacrylate. We then inserted the appropriate size polyethylene tibial insert. We made sure that it was locked into position. We took the knee into full extension, and then back in a flexion making sure we had removed any excess methylmethacrylate. The patellar component was then cemented down and secured with clamp. Excess methylmethacrylate removed. We kept the knee in full extension, patellar clamp in position until methylmethacrylate had hardened. Once it had hardened the patellar clamp was removed. The knee was taken through full range of motion. The patella tracked nicely. There was good soft tissue balancing. The tourniquet was now released. Additional hemostasis was achieved via electrocautery. A second gram of TXA was given. The wound was irrigated with pulse lavage mechanical irrigation. The extensor mechanism was repaired with Vicryl. We checked the repair with range of motion and it was stable. The subcutaneous soft tissues were repaired with Vicryl in layers. The skin was approximated with pernio/Dermabond. Sterile dressings were applied followed by loose web roll and Isacc bandage. The patient was transferred to a bed, and taken to recovery in stable and satisfactory condition. Adan RODRIGUEZ assisted with the procedure.
[2017-09-12] MEDS ORDERED: HYDROmorphone 0.5 MG/0.5 ML SYRINGE IVP PRN ×2 (16:35)
[2017-09-12] MEDS ORDERED: HYDROcodone/APAP 7.5-325MG 1 EACH TAB PO PRN (16:35)
[2017-09-12] MEDS ORDERED: NALOXONE 0.4 MG/ML 1 ML VIAL IV PRN (16:35)
[2017-09-12] MEDS ORDERED: NA PHOS,M-B/NA PHOS,DI-BA 133 ML ENEMA RECTAL PRN (16:35)
[2017-09-12] MEDS ORDERED: ONDANSETRON 4 MG/2 ML VIAL IVP PRN (16:35)
[2017-09-12] MEDS ORDERED: HYDROmorphone 2 MG/ML 1 ML SYRINGE IVP PRN ×2 (16:35→17:13)
[2017-09-12] MEDS ORDERED: BISACODYL 10 MG SUPP RECTAL PRN (16:35)
--- NOTE | 2017-09-12 17:21 | XR ---
EXAMINATION TYPE: XR knee limited LT DATE OF EXAM: 09/12/2017 COMPARISON: NONE HISTORY: Knee pain TECHNIQUE: 2 views FINDINGS: There is a left knee prosthesis. Components appear in anatomic position. I see no fracture. IMPRESSION: No evidence of a complicating process.
[2017-09-12] MEDS: traMADol 50 MG TAB PO SCH ×2 (18:16→22:06)
[2017-09-12] MEDS: ENOXAPARIN 30 MG/0.3 ML SYRINGE SQ SCH (20:40)
[2017-09-12] MEDS: HYDROmorphone 2 MG/ML 1 ML SYRINGE IVP PRN (20:41)
[2017-09-12] MEDS ORDERED: SENNOSIDES-DOCUSATE SODIUM 1 EACH TAB PO SCH (21:00)
[2017-09-12] MEDS: ceFAZolin IN SWFI 2 GM/20 ML SYRINGE IVP SCH (22:55)
[2017-09-13 02:16] VITALS: PULSE 65
[2017-09-13] MEDS: HYDROmorphone 2 MG/ML 1 ML SYRINGE IVP PRN ×2 (03:48→08:21)
[2017-09-13] MEDS: LACTATED RINGERS 1,000 ML IV SCH ×2 (04:41→09:59)
[2017-09-13] MEDS: ceFAZolin IN SWFI 2 GM/20 ML SYRINGE IVP SCH (05:00)
[2017-09-13] MEDS: HYDROcodone/APAP 7.5-325MG 1 EACH TAB PO PRN ×2 (05:15→12:19)
[2017-09-13 07:19] VITALS: BP 130/70; RESP 14; TEMP 98
[2017-09-13 07:44] LABS: Basophils % (A) 0 %; Eosinophils # (A) 0.2 k/uL (0-0.7); Eosinophils % (A) 2 %; HGB 12.2 gm/dL (13.0-17.5); Lymphocytes # (A) 1.2 k/uL (1.0-4.8); Lymphocytes % (A) 17 %; MCH 29.7 pg (25.0-35.0); MCHC 31.9 g/dL (31.0-37.0); Mean Platelet Volume 7.2; Monocytes # (A) 0.6 k/uL (0-1.0); Monocytes % (A) 9 %; Neutrophils # (A) 5.3 k/uL (1.3-7.7); Neutrophils % (A) 70 %; Platelet Count 169 k/uL (150-450); RBC 4.09 m/uL (4.30-5.90); RDW 13.3 % (11.5-15.5); WBC 7.5 k/uL (3.8-10.6)
[2017-09-13] MEDS: traMADol 50 MG TAB PO SCH (08:20)
[2017-09-13] MEDS: ENOXAPARIN 30 MG/0.3 ML SYRINGE SQ SCH (08:20)
[2017-09-13] MEDS ORDERED: MELOXICAM 7.5 MG TAB PO SCH (09:00)
[2017-09-13] MEDS ORDERED: FAMOTIDINE 20 MG TAB PO SCH (09:00)
--- NOTE | 2017-09-13 10:05 | P.ONQ ---
Anesthesiology Proc Note - PNB - Peripheral Nerve Block Performed Left Adductor Canal Infusion Time Out Performed: Yes Procedure Start Time: 11:35 Procedure Stop Time: 12:42 Indication: Acute Post-Operative Pain, Requested by physician Sedation Type: Sedate with meaningful contact maintained Preparation: Sterile Dressing Position: Supine Needle Types: On-Q Needle Size: 100mm (4") Needle Gauge: 18 Technique: Ultrasound Injectate: 0.5% Ropivacaine (see comment for volume) (ropi .5% 20cc) Blood Aspirated: No Pain Paresthesia on Injection Noted: No Resistance on Injection: Normal Events: Uneventful and Well Tolerated
--- NOTE | 2017-09-13 10:21 | P.PN ---
Progress Note - Text 09/13 583 61-year-old male status post left total knee replacement by Dr. Campoverde, patient seen and evaluated this morning for postop pain control, patient has a VAS of 1, doing very well. On-Q pump running at 8 mL an hour. Patient plans to go home today
[2017-09-13] MEDS ORDERED: ALBUTEROL NEBULIZED 2.5 MG/3 ML INHALATION PRN (10:49)
--- NOTE | 2017-09-13 11:37 | P.PN ---
Subjective Progress Note Date: 09/13/17 Principal diagnosis: status post left total knee arthroplasty patient seen today resting in his hospital bed, he is utilizing the CPM machine. He appears comfortable, no acute pain changes. He denies any headaches, lightheadedness, chest pain or shortness of breath. Objective - Vital Signs Vital signs: Vital Signs Temp 98 F 09/13/17 07:00 Pulse 65 09/13/17 07:00 Resp 14 09/13/17 07:00 BP 130/70 09/13/17 07:00 Pulse Ox 98 09/13/17 07:00 Intake & Output 09/12/17 09/13/17 09/13/17 18:59 06:59 18:59 Intake Total 1402 400 Output Total 45 301 Balance 1357 99 Weight 83.915 kg Intake: IV 1402 Oral 400 Output: Urine 301 Estimated Blood Loss 45 Other: Voiding Method Urinal # Voids 250 - Exam left lower extremity: Incision is clean, dry, and intact. The prineo tape is in good condition. There is minimal soft tissue swelling and ecchymosis surrounding the medial and lateral aspects of the incision. Calf is soft, no tenderness with palpation. Plantar flexion, dorsiflexion, EHL, FHL are intact. Sensory exam to light touch throughout the extremity is intact, dorsal pedis pulses 2+. - Labs CBC & Chem 7: 09/13/17 06:54 Labs: Abnormal Lab Results - Last 24 Hours (Table) 09/13/17 Range/Units 06:54 RBC 4.09 L (4.30-5.90) m/uL Hgb 12.2 L (13.0-17.5) gm/dL Hct 38.0 L (39.0-53.0) % Assessment and Plan Plan: assessment: 1. Postop day #1 status post left total knee arthroplasty Plan: 1. Pain control, we'll discharge home on oral medication 2. GI and DVT prophylaxis, aspirin 325 mg twice a day of discharge 3. Home therapy and nursing of discharge 4. Medical recommendations 5. Discharge planning: Patient will be discharged home today Time with Patient: Less than 30
--- NOTE | 2017-09-13 11:41 | P.DS ---
Providers Date of admission: 09/12/17 12:29 Expected date of discharge: 09/13/17 Attending physician: Obed Campoverde Consults: 09/12/17 16:35 Consult Physician Routine Consulting Provider: Zenia Winter Consult Reason/Comments: Medical management Do you want consulting provider notified?: Yes Primary care physician: Evelina Hutchison Hospital Course: Date of admission: 09/12/2017 Date of discharge: 09/13/2017 Admission diagnosis: status post left total knee arthroplasty Discharge diagnosis: same Attending physician: Dr. Campoverde Surgical procedures: left total knee arthroplasty Brief history: Patient is a 61-year-old male with a history of progressive primary left knee osteoarthritis. At this point patient has failed conservative treatment measures and has opted to proceed with a elective left total knee arthroplasty. Hospital course: Details of patient's surgery can be found in operative report. Patient tolerated the procedure well and was subsequently transported to orthopedic floor. Patient's orthopeidc and medical care was provided daily. Patient had daily laboratory tests performed for evaluation of overall blood counts . Patient had daily physical therapy to include strengthening range of motion as well as education with walker ambulation. Patient had daily CPM usage as part of their physical therapy program. Patient was treated with Lovenox for their postoperative DVT prophylaxis during their inpatient stay. Patient was noted to have a relatively uneventful postoperative course. Patient reported satisfactory pain control with oral pain medications by postoperative day 0. Patient showed satisfactory progress with physical therapy. Patient moved steadily through the program and had no difficulty meeting the goals by postoperative day 1. Given patient's otherwise satisfactory course and having met physical therapy goals, plan is to discharge patient home on postoperative day 1. Discharge condition/disposition: Patient will be discharged home in stable condition. Discharge medications: Instructions are given on resumption of patient's normal daily medications per primary care recommendation, in addition patient will be prescribed [place] 7.5 mg/325 mg, tramadol 50 mg, Colace 100 mg, aspirin 325 mg. Discharge instructions: 1. Wound care and infection precautions, keep incision dry and covered while showering, no lotions, creams, moisturizers. No soaking, tubs, pools, hottubs. Do not scrub over the incision. 2. Weight-bear as tolerated with walker / cane until follow-up. 3. Ice and elevate when necessary. Do not exceed 20 minutes per hour with ice pack. 4. Utilize compression sleeve until seen at first follow up appointment. 5. Visiting nursing care. 6. Home physical therapy including home CPM. 7. Pain meds and anticoagulants per prescription. 8. Pain medication has potential to cause constipation. Increase oral fluid and fiber intake. Contact primary care provider if you have not had a bowel movement within 48 hours after discharge 9. No anti-inflammatory medication until discussed at first post operative visit, this including Motrin, Aleve, Mobic, Diclofenac. 10. Follow up in office at 2 weeks postop with Adan Driver PA-C 11. Follow up with your primary care doctor 7-10 days after discharge. 12. Contact [facility] with any questions, . Procedures: left total knee arthroplasty Patient Condition at Discharge: Good Plan - Discharge Summary Discharge Rx Participant: Yes New Discharge Prescriptions: New Aspirin 325 mg PO BID #60 tab Docusate [Colace] 100 mg PO DAILY #30 capsule HYDROcodone/APAP 7.5-325MG [[place] 7.5] 1 - 2 each PO Q6HR PRN #60 tab PRN Reason: Pain traMADol HCl [Ultram] 50 mg PO Q6H PRN #40 tab PRN Reason: Pain Discontinued Meloxicam [Mobic] 7.5 mg PO DAILY PRN PRN Reason: Pain No Action Montelukast [Singulair] 10 mg PO DAILY predniSONE 2.5 mg PO DAILY Budesonide/Formoterol Fumarate [Symbicort 80-4.5 Mcg Inhaler] 2 puff INHALATION RT-BID Albuterol Inhaler [Ventolin Hfa Inhaler] 1 - 2 puff INHALATION RT-Q6H PRN PRN Reason: Shortness Of Breath Omeprazole [PriLOSEC] 20 mg PO BID Discharge Medication List Montelukast [Singulair] 10 mg PO DAILY 12/20/14 [History] predniSONE 2.5 mg PO DAILY 02/04/17 [History] Albuterol Inhaler [Ventolin Hfa Inhaler] 1 - 2 puff INHALATION RT-Q6H PRN [History] Budesonide/Formoterol Fumarate [Symbicort 80-4.5 Mcg Inhaler] 2 puff INHALATION RT-BID 04/11/17 [History] Omeprazole [PriLOSEC] 20 mg PO BID 06/12/17 [History] Aspirin 325 mg PO BID #60 tab 09/13/17 [Rx] Docusate [Colace] 100 mg PO DAILY #30 capsule 09/13/17 [Rx] HYDROcodone/APAP 7.5-325MG [[place] 7.5] 1 - 2 each PO Q6HR PRN #60 tab 09/13/17 [ Rx] traMADol HCl [Ultram] 50 mg PO Q6H PRN #40 tab 09/13/17 [Rx] Follow up Appointment(s)/Referral(s): [facility], [NON-STAFF] - Nikolai Driver, MERLENE [PHYSICIAN TEST WORKER] - 09/28/17 2:10 pm Patient Instructions/Handouts: Knee Replacement (DC) Activity/Diet/Wound Care/Special Instructions: Orthopedic Discharge Instructions: 1. Wound care and infection precautions, keep incision dry and covered while showering, no lotions, creams, moisturizers. No soaking, pools, hot tubs. Do not scrub over incision. 2. Weight-bear as tolerated with walker / cane until follow-up. 3. Ice and elevate when necessary. Do not exceed 20 minutes per hour with ice pack. 4. Utilize compression sleeve until seen at first follow up appointment. 5. Visiting nursing care. 6. Home physical therapy including home CPM. 7. Pain meds and anticoagulants per prescription. 8. Pain medication has potential to cause constipation. Increase oral fluid and fiber intake. Contact primary care provider if you have not had a bowel movement within 48 hours after discharge. 9. No anti-inflammatory medication until discussed at first post operative visit, this including Motrin, Aleve, Mobic, Diclofenac. 10. Follow up in office at 2 weeks postop with Adan Driver PA-C 11. Follow up with your primary care doctor 7-10 days after discharge. 12. Contact [facility] with any questions, . Discharge Disposition: HOME WITH HOME HEALTH SERVICES
[2017-09-13] MEDS ORDERED: MULTIVITAMINS, THERA 1 EACH TAB PO SCH (12:00)
--- NOTE | 2017-09-13 12:48 | P.CONS ---
History of Present Illness - Reason for Consult COPD - History of Present Illness patient is well-known patient to me from his previous hospitalization admitted for elective left knee arthroplasty patient denied any cough runny nose fevers chills nausea vomiting patient does have history of COPD denied any shortness of breath at this point of timepatient does have acid reflux issues but patient is on intravenous steroids advised him to avoid other medicines except for tramadol patient is also on steroid 2.5 mg .patient denied any dysuria nausea vomiting Review of Systems REVIEW OF SYSTEMS: CONSTITUTIONAL: No fever, no malaise, no fatigue. HEENT: No recent visual problems or hearing problems. Denied any sore throat. CARDIOVASCULAR: No chest pain, orthopnea, PND, no palpitations, no syncope. PULMONARY: No shortness of breath, no cough, no hemoptysis. GASTROINTESTINAL: No diarrhea, no nausea, no vomiting, no abdominal pain. Normoactive bowel sounds. NEUROLOGICAL: No headaches, no weakness, no numbness. HEMATOLOGICAL: Denies any bleeding or petechiae. GENITOURINARY: Denies any burning micturition, frequency, or urgency. MUSCULOSKELETAL/RHEUMATOLOGICAL: Denies any joint pain, swelling, or any muscle pain. ENDOCRINE: Denies any polyuria or polydipsia. The rest of the 14-point review of systems is negative. Past Medical History Past Medical History: Asthma, COPD, GERD/Reflux, Osteoarthritis (OA) Additional Past Medical History / Comment(s): Hepatitis B after blood transfusion when he had polio at the age of 2 or 3 yrs, pancreatitis Jun 2017, diverticular dx, chronic sinus problems-takes prednisone small dose daily. History of Any Multi-Drug Resistant Organisms: None Reported Past Surgical History: Joint Replacement, Orthopedic Surgery, Tonsillectomy Additional Past Surgical History / Comment(s): Right arthroscopic knee surgery, colonoscopy with benign polypectomy, EGD, sinus surgery, vasectomy, total right knee. Past Anesthesia/Blood Transfusion Reactions: No Reported Reaction Additional Past Anesthesia/Blood Transfusion Reaction / Comm: Pt received blood when he was a small child. Past Psychological History: No Psychological Hx Reported Additional Psychological History / Comment(s): Pt resides with his girlfriend. He is independent. Smoking Status: Never smoker Past Alcohol Use History: None Reported Past Drug Use History: None Reported - Past Family History Father Family Medical History: COPD Additional Family Medical History / Comment(s): Father was a smoker. He at the age of 74 or 75yrs. Mother Family Medical History: COPD Additional Family Medical History / Comment(s): Mother is living. She is a smoker. She uses oxygen. Medications and Allergies Home Medications Medication Instructions Recorded Confirmed Type Montelukast [Singulair] 10 mg PO DAILY 12/20/14 09/12/17 History predniSONE 2.5 mg PO DAILY 02/04/17 09/12/17 History Albuterol Inhaler [Ventolin Hfa 1 - 2 puff INHALATION RT-Q6H PRN 04/11/17 History Inhaler] Budesonide/Formoterol Fumarate 2 puff INHALATION RT-BID 04/11/17 09/12/17 History [Symbicort 80-4.5 Mcg Inhaler] Omeprazole [PriLOSEC] 20 mg PO BID 06/12/17 09/12/17 History Aspirin 325 mg PO BID #60 tab 09/13/17 Rx Docusate [Colace] 100 mg PO DAILY #30 capsule 09/13/17 Rx HYDROcodone/APAP 7.5-325MG [[place] 1 - 2 each PO Q6HR PRN #60 tab 09/13/17 Rx 7.5] traMADol HCl [Ultram] 50 mg PO Q6H PRN #40 tab 09/13/17 Rx Allergies Allergy/AdvReac Type Severity Reaction Status Date / Time Penicillins AdvReac Unknown Verified 09/12/17 18:19 Childhood Physical Exam Vitals: Vital Signs Temp Pulse Pulse Resp BP BP Pulse Ox 09/13/17 07:00 98 F 65 14 130/70 98 09/13/17 00:03 97.1 F L 65 16 142/68 98 09/12/17 21:00 98.4 F 18 09/12/17 20:00 62 132/75 09/12/17 19:45 53 L 129/68 09/12/17 19:30 57 L 127/68 09/12/17 19:15 61 142/66 09/12/17 19:00 59 L 136/65 09/12/17 18:45 53 L 129/67 09/12/17 18:30 77 135/91 09/12/17 18:15 84 144/96 09/12/17 18:00 73 137/75 09/12/17 17:37 51 L 16 164/72 98 09/12/17 17:21 57 L 16 153/85 97 09/12/17 17:06 50 L 16 145/76 96 09/12/17 16:51 98 F 50 L 16 147/70 99 09/12/17 12:52 97.8 F 55 L 18 147/68 97 Intake and Output 09/12/17 09/13/17 09/13/17 22:59 06:59 14:59 Intake Total 801 Output Total 46 300 Balance 755 -300 Intake: IV 401 Oral 400 Output: Urine 1 300 Estimated Blood Loss 45 Other: Voiding Method Urinal # Voids 250 Weight 83.915 kg PHYSICAL EXAMINATION: GENERAL: The patient is alert and oriented x3, not in any acute distress. Well developed, well nourished. HEENT: Pupils are round and equally reacting to light. EOMI. No scleral icterus. No conjunctival pallor. Normocephalic, atraumatic. No pharyngeal erythema. No thyromegaly. CARDIOVASCULAR: S1 and S2 present. No murmurs, rubs, or gallops. PULMONARY: Chest is clear to auscultation, no wheezing or crackles. ABDOMEN: Soft, nontender, nondistended, normoactive bowel sounds. No palpable organomegaly. MUSCULOSKELETAL: deferred to orthopedic surgery EXTREMITIES: No cyanosis, clubbing, or pedal edema. NEUROLOGICAL: Gross neurological examination did not reveal any focal deficits. SKIN: No rashes. Results CBC & Chem 7: 09/13/17 06:54 Labs: Abnormal Lab Results - Last 24 Hours (Table) 09/13/17 Range/Units 06:54 RBC 4.09 L (4.30-5.90) m/uL Hgb 12.2 L (13.0-17.5) gm/dL Hct 38.0 L (39.0-53.0) % Assessment and Plan Plan: -COPD without any acute exacerbation no further recommendations at this point of time patient can continue his low-dose steroid and breathing treatments at home. -Gastroesophageal reflux disease: I asked him to avoid meloxicam, tramadol can be continued. -Osteoarthritis. Patient is medically stable to be discharged if that is appropriate from orthopedic perspective
[2017-09-13] MEDS ORDERED: SYMBICORT 80-4.5 MCG INHALER INHALATION SCH (20:00)
[2017-09-14] MEDS ORDERED: PANTOPRAZOLE 40 MG TABLET PO SCH (07:30)
[2017-09-14] MEDS ORDERED: predniSONE 2.5 MG TAB PO SCH (09:00)
[2017-09-14] MEDS ORDERED: ASPIRIN 81 MG PO SCH (09:00)
== END 2017-09-13 12:45 | disposition home health service (06) | DRG 470 ==
LOC: 2ORMAIN 12:29 → 3SUR 17:03
PROVIDERS: ADMIT Orthopaedic Surgery; ATTEND Orthopaedic Surgery
PROC: 0SRD0J9 Replacement of Left Knee Joint with Synthetic Substitute, Cemented, Open Approach (ICD-10-PCS; principal; 2017-09-12 15:50)
DX: M17.12 Unilateral primary osteoarthritis, left knee (principal); J44.9 Chronic obstructive pulmonary disease, unspecified; K21.9 Gastro-esophageal reflux disease without esophagitis; Z86.12 Personal history of poliomyelitis; Z79.82 Long term (current) use of aspirin; Z79.51 Long term (current) use of inhaled steroids; Z79.52 Long term (current) use of systemic steroids; Z79.899 Other long term (current) drug therapy; Z96.651 Presence of right artificial knee joint; Z86.19 Personal history of other infectious and parasitic diseases; Z88.0 Allergy status to penicillin
CPT/HCPCS: 36415; 80051; 85025; 85610; 85730; 87070; 88300

== ENCOUNTER → 2018-02-16 | Outpatient (CLI) | payer BC ==
--- NOTE | 2018-02-16 15:50 | US ---
EXAMINATION TYPE: US kidneys/renal and bladder DATE OF EXAM: 02/16/2018 COMPARISON: CT 06/12/2017 CLINICAL HISTORY: 62-year-old male R30.0 Dysuria. Patient states right flank pain, h/o renal stones TECHNIQUE: Multiple sonographic images of the kidneys and bladder are obtained. FINDINGS: Right Kidney: 11.3 x 5.1 x 4.6 cm without hydronephrosis. There is a 1.4 cm cyst laterally at the lo wer pole. 5 mm echogenic focus in the upper pole. Left Kidney: 12.0 x 5.8 x 5.3 cm without hydronephrosis. There is a 7 mm echogenic focus in the upper pole. Bladder: Partially distended, wnl Bilateral Jets seen: No IMPRESSION: No hydronephrosis. Possible nonobstructive calculus in each kidney measuring up to 7 mm. Small 1.4 cm benign cyst on the right.
== END | disposition home or self-care (01) ==
LOC: RADUSWWP 14:55
PROVIDERS: ATTEND Internal Medicine
DX: N28.1 Cyst of kidney, acquired (principal); R30.0 Dysuria
CPT/HCPCS: 76770

== ENCOUNTER 2018-03-23 10:22 | Inpatient (IN) | payer BC ==
[2018-03-23] MEDS ORDERED: SODIUM CHLORIDE 0.9% 2,000 ML IV STA (10:40)
[2018-03-23] MEDS ORDERED: SODIUM CHLORIDE 0.9% 1,000 ML IV STA (10:40)
[2018-03-23] MEDS ORDERED: KETOROLAC 30 MG/ML 1 ML VIAL IVP STA (10:40)
[2018-03-23] MEDS ORDERED: ONDANSETRON 4 MG/2 ML VIAL IVP STA (10:40)
--- NOTE | 2018-03-23 10:45 | ED ---
Abdominal Pain HPI - General Chief Complaint: Abdominal Pain Stated Complaint: ABDOMINAL PIN Time Seen by Provider: 03/23/18 10:35 Source: patient, RN notes reviewed Mode of arrival: ambulatory Limitations: no limitations - History of Present Illness Initial Comments: This is a 62-year-old male history of pancreatitis in the past who states he ate a local restaurant last night and he has been having abdominal pain in the epigastrium with nausea and vomiting since last evening. No diarrhea he's not been able go the bathroom. He complains of moderate midepigastric pain nonradiating he states it just hurts he is unable to quantify or qualify it any further. No shortness of breath no cough fevers chills or sweats. No overt lightheadedness at this time. He denies any recent alcohol use. No other complaints no other modifying factors at this time MD Complaint: abdominal pain - Related Data Home Medications Medication Instructions Recorded Confirmed Montelukast [Singulair] 10 mg PO DAILY 12/20/14 03/23/18 Omeprazole [PriLOSEC] 20 mg PO DAILY 06/12/17 03/23/18 Aspirin EC [Ecotrin Low Dose] 81 mg PO DAILY 03/23/18 03/23/18 Budesonide-Formot 160-4.5 Mcg 2 puff INHALATION RT-BID 03/23/18 03/23/18 [Symbicort 160-4.5 Mcg Inhaler] Sildenafil Citrate [Sildenafil] 20 mg PO DAILY PRN 03/23/18 03/23/18 Allergies Allergy/AdvReac Type Severity Reaction Status Date / Time Penicillins AdvReac Unknown Verified 03/23/18 10:34 Childhood Review of Systems ROS Statement: Those systems with pertinent positive or pertinent negative responses have been documented in the HPI. ROS Other: All systems not noted in ROS Statement are negative. Past Medical History Past Medical History: Asthma, COPD, GERD/Reflux, Osteoarthritis (OA) Additional Past Medical History / Comment(s): Hepatitis B after blood transfusion when he had polio at the age of 2 or 3 yrs, pancreatitis Jun 2017, diverticular dx, chronic sinus problems-takes prednisone small dose daily. History of Any Multi-Drug Resistant Organisms: None Reported Past Surgical History: Joint Replacement, Orthopedic Surgery, Tonsillectomy Additional Past Surgical History / Comment(s): Right arthroscopic knee surgery, colonoscopy with benign polypectomy, EGD, sinus surgery, vasectomy, total right knee. Past Anesthesia/Blood Transfusion Reactions: No Reported Reaction Additional Past Anesthesia/Blood Transfusion Reaction / Comment(s): Pt received blood when he was a small child. Past Psychological History: No Psychological Hx Reported Smoking Status: Never smoker Past Alcohol Use History: None Reported Past Drug Use History: None Reported - Past Family History Father Family Medical History: COPD Additional Family Medical History / Comment(s): Father was a smoker. He at the age of 74 or 75yrs. Mother Family Medical History: COPD Additional Family Medical History / Comment(s): Mother is living. She is a smoker. She uses oxygen. General Exam - General Exam Comments Initial Comments: This is a well-developed well-nourished awake alert oriented 3 male Limitations: no limitations General appearance: alert, in no apparent distress Head exam: Present: atraumatic, normocephalic, normal inspection Eye exam: Present: normal appearance, PERRL, EOMI. Absent: scleral icterus, conjunctival injection, periorbital swelling ENT exam: Present: mucous membranes dry Neck exam: Present: normal inspection. Absent: tenderness, meningismus, lymphadenopathy Respiratory exam: Present: normal lung sounds bilaterally. Absent: respiratory distress, wheezes, rales, rhonchi, stridor Cardiovascular Exam: Present: normal rhythm, bradycardia, normal heart sounds. Absent: systolic murmur, diastolic murmur, rubs, gallop, clicks GI/Abdominal exam: Present: soft, tenderness (Some epigastric tenderness palpation no guarding rebound masses or bruits), normal bowel sounds. Absent: distended, guarding, rebound, rigid Rectal exam: Present: deferred Extremities exam: Present: normal inspection, full ROM, normal capillary refill. Absent: tenderness, pedal edema, joint swelling, calf tenderness Back exam: Present: normal inspection Neurological exam: Present: alert, oriented X3, CN II-XII intact Psychiatric exam: Present: normal affect, normal mood Skin exam: Present: warm, dry, intact, normal color. Absent: rash Course Vital Signs 03/23/18 10:32 Temperature 98.4 F Pulse Rate 48 L Respiratory 16 Rate Blood Pressure 153/73 O2 Sat by Pulse 99 Oximetry Medical Decision Making - Medical Decision Making I did discuss the findings with the patient patient will be admitted I did discuss case with Dr. Winter. GI will be consulted. - Lab Data Result diagrams: 03/23/18 10:45 03/23/18 10:45 Lab Results 03/23/18 03/23/18 03/23/18 Range/Units 10:45 10:45 10:45 WBC 14.7 H (3.8-10.6) k/uL RBC 4.67 (4.30-5.90) m/uL Hgb 14.2 (13.0-17.5) gm/dL Hct 42.5 (39.0-53.0) % MCV 90.9 (80.0-100.0) fL MCH 30.4 (25.0-35.0) pg MCHC 33.4 (31.0-37.0) g/dL RDW 13.5 (11.5-15.5) % Plt Count 190 (150-450) k/uL Neutrophils % 90 % Lymphocytes % 5 % Monocytes % 4 % Eosinophils % 1 % Basophils % 0 % Neutrophils # 13.2 H (1.3-7.7) k/uL Lymphocytes # 0.7 L (1.0-4.8) k/uL Monocytes # 0.6 (0-1.0) k/uL Eosinophils # 0.1 (0-0.7) k/uL Basophils # 0.0 (0-0.2) k/uL Sodium 140 (137-145) mmol/L Potassium 4.6 (3.5-5.1) mmol/L Chloride 109 H (98-107) mmol/L Carbon Dioxide 24 (22-30) mmol/L Anion Gap 7 mmol/L BUN 20 (9-20) mg/dL Creatinine 0.80 (0.66-1.25) mg/dL Est GFR (CKD-EPI)AfAm >90 (>60 ml/min/1.73 sqM) Est GFR (CKD-EPI)NonAf >90 (>60 ml/min/1.73 sqM) Glucose 112 H (74-99) mg/dL Plasma Lactic Acid Giovanni (0.7-2.0) mmol/L Calcium 9.8 (8.4-10.2) mg/dL Total Bilirubin 0.8 (0.2-1.3) mg/dL AST 19 (17-59) U/L ALT 27 (21-72) U/L Alkaline Phosphatase 73 (38-126) U/L Total Creatine Kinase 50 L (55-170) U/L CK-MB (CK-2) 0.8 (0.0-2.4) ng/mL CK-MB (CK-2) Rel Index 1.6 Troponin I <0.012 (0.000-0.034) ng/mL Total Protein 6.7 (6.3-8.2) g/dL Albumin 4.2 (3.5-5.0) g/dL Amylase (30-110) U/L Lipase 5427 H (23-300) U/L Urine Color Urine Appearance (Clear) Urine pH (5.0-8.0) Ur Specific [place] (1.001-1.035) Urine Protein (Negative) Urine Glucose (UA) (Negative) Urine Ketones (Negative) Urine Blood (Negative) Urine Nitrite (Negative) Urine Bilirubin (Negative) Urine Urobilinogen (<2.0) mg/dL Ur Leukocyte Esterase (Negative) 03/23/18 03/23/18 Range/Units 10:45 10:45 WBC (3.8-10.6) k/uL RBC (4.30-5.90) m/uL Hgb (13.0-17.5) gm/dL Hct (39.0-53.0) % MCV (80.0-100.0) fL MCH (25.0-35.0) pg MCHC (31.0-37.0) g/dL RDW (11.5-15.5) % Plt Count (150-450) k/uL Neutrophils % % Lymphocytes % % Monocytes % % Eosinophils % % Basophils % % Neutrophils # (1.3-7.7) k/uL Lymphocytes # (1.0-4.8) k/uL Monocytes # (0-1.0) k/uL Eosinophils # (0-0.7) k/uL Basophils # (0-0.2) k/uL Sodium (137-145) mmol/L Potassium (3.5-5.1) mmol/L Chloride (98-107) mmol/L Carbon Dioxide (22-30) mmol/L Anion Gap mmol/L BUN (9-20) mg/dL Creatinine (0.66-1.25) mg/dL Est GFR (CKD-EPI)AfAm (>60 ml/min/1.73 sqM) Est GFR (CKD-EPI)NonAf (>60 ml/min/1.73 sqM) Glucose (74-99) mg/dL Plasma Lactic Acid Giovanni 1.1 (0.7-2.0) mmol/L Calcium (8.4-10.2) mg/dL Total Bilirubin (0.2-1.3) mg/dL AST (17-59) U/L ALT (21-72) U/L Alkaline Phosphatase (38-126) U/L Total Creatine Kinase (55-170) U/L CK-MB (CK-2) (0.0-2.4) ng/mL CK-MB (CK-2) Rel Index Troponin I (0.000-0.034) ng/mL Total Protein (6.3-8.2) g/dL Albumin (3.5-5.0) g/dL Amylase (30-110) U/L Lipase (23-300) U/L Urine Color Yellow Urine Appearance Clear (Clear) Urine pH 7.0 (5.0-8.0) Ur Specific [place] 1.020 (1.001-1.035) Urine Protein Trace H (Negative) Urine Glucose (UA) Negative (Negative) Urine Ketones 1+ H (Negative) Urine Blood Negative (Negative) Urine Nitrite Negative (Negative) Urine Bilirubin Negative (Negative) Urine Urobilinogen <2.0 (<2.0) mg/dL Ur Leukocyte Esterase Negative (Negative) - EKG Data -: EKG Interpreted by Ut EKG shows normal: sinus rhythm (Sinus bradycardia rate of 43. Interval 170 QRS duration 96 QT since QTC 4:30/363 st-t wave changes) - Radiology Data Radiology results: report reviewed (I did review the imaging and report no acute findings.), image reviewed Disposition Clinical Impression: Acute pancreatitis, Abdominal pain, Acute gastritis Disposition: ADMITTED IP TO THIS [facility] Condition: Stable Referrals: Evelina Hutchison MD [Primary Care Provider] - 1-2 days
[2018-03-23 11:10] LABS: Basophils % (A) 0 %; Eosinophils # (A) 0.1 k/uL (0-0.7); Eosinophils % (A) 1 %; HCT 42.5 % (39.0-53.0); HGB 14.2 gm/dL (13.0-17.5); Lymphocytes # (A) 0.7 k/uL (1.0-4.8); Lymphocytes % (A) 5 %; MCH 30.4 pg (25.0-35.0); MCHC 33.4 g/dL (31.0-37.0); MCV 90.9 fL (80.0-100.0); Mean Platelet Volume 7.6; Monocytes # (A) 0.6 k/uL (0-1.0); Monocytes % (A) 4 %; Neutrophils # (A) 13.2 k/uL (1.3-7.7); Neutrophils % (A) 90 %; Platelet Count 190 k/uL (150-450); RBC 4.67 m/uL (4.30-5.90); RDW 13.5 % (11.5-15.5); WBC 14.7 k/uL (3.8-10.6)
[2018-03-23 11:17] LABS: Appearance,Urine Clear (Clear); Bilirubin,Urine Negative (Negative); Blood,Urine Negative (Negative); Color,Urine Yellow; Glucose,Urine (UA) Negative (Negative); Ketones,Urine 1+ (Negative); Leukocyte Esterase,Urine Negative (Negative); Nitrite,Urine Negative (Negative); Protein,Urine Trace (Negative); Urobilinogen,Urine <2.0 mg/dL (<2.0)
[2018-03-23 11:28] LABS: ALT 27 U/L (21-72); AST 19 U/L (17-59); Albumin 4.2 g/dL (3.5-5.0); Alkaline Phosphatase 73 U/L (38-126); Anion Gap 7 mmol/L; Blood Urea Nitrogen 20 mg/dL (9-20); Calcium 9.8 mg/dL (8.4-10.2); Carbon Dioxide 24 mmol/L (22-30); Chloride 109 mmol/L (98-107); Glucose 112 mg/dL (74-99); Potassium 4.6 mmol/L (3.5-5.1); Sodium 140 mmol/L (137-145); Total Bilirubin 0.8 mg/dL (0.2-1.3); Total Protein 6.7 g/dL (6.3-8.2)
--- NOTE | 2018-03-23 11:31 | XR ---
EXAMINATION TYPE: XR chest 2V DATE OF EXAM: 03/23/2018 COMPARISON: Two-view chest x-ray April 11, 2017. HISTORY: Chest and abdominal pain yesterday. TECHNIQUE: Frontal and lateral views of the chest are obtained. FINDINGS: There is no focal air space opacity, pleural effusion, or pneumothorax seen. Underlying e mphysematous change is felt present. The cardiac silhouette size is stable and upper limits of normal . The osseous structures are intact. IMPRESSION: No acute cardiopulmonary process. No significant change from prior.
--- NOTE | 2018-03-23 11:34 | XR ---
EXAMINATION TYPE: XR KUB DATE OF EXAM: 03/23/2018 11:18 AM CLINICAL HISTORY: Abdominal pain since yesterday. TECHNIQUE: Two Upright KUB images of the abdomen are obtained. COMPARISON: CT abdomen and pelvis June 12, 2017. FINDINGS: Scattered gas is seen in non-distended stomach and small bowel loops. Gas and fecal materia l is seen in non-distended colon. Amount of fecal material somewhat prominent in the region of the ce cum. Spurring in visualized lower thoracic spine is noted. There is redemonstration of left-sided nep hrolithiasis with 2-3 calculi measuring up to 6 mm in size. Lung bases are clear. IMPRESSION: Overall nonobstructive bowel gas pattern. Focal moderate proximal colonic fecal stasis. Left-sided ne phrolithiasis redemonstrated.
[2018-03-23 11:35] LABS: Creatine Kinase 50 U/L (55-170)
[2018-03-23 11:48] LABS: Creatine Kinase MB 0.8 ng/mL (0.0-2.4); Troponin I <0.012 ng/mL (0.000-0.034)
[2018-03-23 11:52] LABS: Lipase 5427 U/L (23-300)
[2018-03-23] MEDS ORDERED: fentaNYL (PF) 50 MCG/ML 2 ML AMP IV STA (13:06)
[2018-03-23] MEDS ORDERED: ONDANSETRON 4 MG/2 ML VIAL IVP PRN (13:37)
[2018-03-23] MEDS ORDERED: NALOXONE 0.4 MG/ML 1 ML VIAL IV PRN (13:37)
[2018-03-23] MEDS ORDERED: HYDROmorphone 0.5 MG/0.5 ML SYRINGE IVP PRN (13:37)
[2018-03-23] MEDS ORDERED: ALPRAZolam 0.25 MG TAB PO PRN (14:25)
[2018-03-23] MEDS ORDERED: TEMAZEPAM 15 MG CAP PO PRN (14:25)
[2018-03-23] MEDS ORDERED: IOPAMIDOL-300 CONTRAST 30 ML VIAL (ORAL USE) PO PRN (14:30)
[2018-03-23] MEDS: SODIUM CHLORIDE 0.9% 1,000 ML IV SCH ×2 (15:09→19:42)
--- NOTE | 2018-03-23 15:54 | CT ---
EXAMINATION TYPE: CT abdomen wo con DATE OF EXAM: 03/23/2018 COMPARISON: 06/12/2017 HISTORY: Upper abdominal/epigastric pain. CT DLP: 534 mGycm Automated exposure control for dose reduction was used. TECHNIQUE: Helical acquisition of images was performed from the lung bases through the top of iliac crest to include entire abdomen. CONTRAST: Performed with Oral Contrast and without IV contrast. FINDINGS: LUNG BASES: Minimal bibasilar subsegmental dependent atelectasis is noted. LIVER/GB: Hepatic parenchyma is diffusely hypoattenuated in comparison to that of the spleen, most co mmonly seen in hepatic steatosis. This finding limits evaluation for hepatic masses. No gross evidenc e of hepatic mass is seen. No intrahepatic biliary ductal dilatation. No cholelithiasis PANCREAS: Very mild peripancreatic fat stranding could represent Mild intrahepatic atrophy is seen in the pancreatic head. No ductal dilatation. SPLEEN: Few calcified benign splenic granulomas are present. Additionally small splenule seen adjacen t to the bois forte spleen. ADRENALS: No significant abnormality is seen. KIDNEYS: Nonobstructing bilateral nephrolithiasis is present with calculi measuring 8 mm in the left upper pole, 3 mm in the left upper pole, 2 mm in the left midpole, and 5 mm in the left lower pole as well as 2 mm punctate nonobstructing left lower pole renal calculus. On the right there is a 3 mm ri ght upper pole renal calculus and 1 to 2 mm right midpole renal calculus. Ill-defined probable renal cysts are seen on the right. No hydronephrosis bilaterally. BOWEL: No dilated large or small bowel LYMPH NODES: No greater than 1 cm short axis is noted within the abdomen. OSSEOUS STRUCTURES: Multilevel mild degenerative change of the spine is noted.. FREE AIR: No free air is visualized. IMPRESSION: 1. VERY SUBTLE POSSIBLE PERIPANCREATIC FAT STRANDING AND MAY REPRESENT MILD EDEMATOUS PANCREATITIS. C ORRELATE WITH SERUM AMYLASE AND LIPASE. 2. NONOBSTRUCTING BILATERAL NEPHROLITHIASIS WITH NO EVIDENCE OF HYDRONEPHROSIS OR URETERAL DILATATION . 3. HEPATIC STEATOSIS.
[2018-03-23] MEDS: HYDROmorphone 1 MG/ML 1 ML SYRINGE IVP PRN ×3 (15:58→22:32)
[2018-03-23] MEDS: MEROPENEM 2 GM in SODIUM CHLORIDE 0.9% 100 ML IVPB SCH ×2 (15:58→23:50)
--- NOTE | 2018-03-23 15:59 | HP ---
HISTORY AND PHYSICAL CHIEF COMPLAINT: Abdominal pain. HISTORY OF PRESENT ILLNESS: This 62-year-old gentleman with a past medical history of multiple medical problems of asthma, COPD, GERD, DJD, hepatitis B, history of joint replacement, history of pancreatitis twice about 10 years ago and the last July being followed by Dr. Hutchison in the outpatient setting, was complaining of epigastric pain. The pain was severe in character without much radiation. Patient came to [facility] and found to have elevated amylase and lipase and admitted for evaluation treatment. White count is also elevated 14.7. There is no history of fever, rigors. No headache, loss of consciousness, seizures. PAST MEDICAL HISTORY: History of asthma, COPD, GERD, DJD, history of pancreatitis thought to be idiopathic in nature, hepatitis B. MEDICATIONS: Home medications are: 1. Viagra p.r.n. 2. Prilosec 20 mg p.o. daily. 3. Symbicort 160/4.5 two puffs b.i.d. 4. Singulair 10 mg daily. 5. Ecotrin 81 mg p.o. daily. ALLERGIES: PENICILLIN. FAMILY HISTORY: History of COPD. SOCIAL HISTORY: No history of smoking. No alcohol intake. REVIEW OF SYSTEMS: ENT: No diminished hearing or vision. CARDIOVASCULAR: No angina. RESPIRATORY: No cough or hemoptysis. GI: Mentioned earlier. : No dysuria. NERVOUS SYSTEM: No numbness or weakness. ALLERGY/IMMUNOLOGY: Asthma. MUSCULOSKELETAL: As mentioned earlier. HEMATOLOGY: No history of anemia. ENDOCRINE: No history of diabetes. Hypothyroidism. CONSTITUTIONAL As mentioned earlier. DERMATOLOGY: Negative. RHEUMATOLOGY: Negative. PSYCHIATRY: As mentioned earlier. PHYSICAL EXAMINATION: Alert, oriented x3. Pulse 58, blood pressure 167/76, respiration 18, temperature 98.4, pulse ox 100% on room air. HEENT: Conjunctivae normal. Oral mucosa moist. NECK: No jugular venous distention. No carotid bruit. No lymph node enlargement. CARDIOVASCULAR: S1, S2 muffled. RESPIRATORY: Breath sounds diminished in the bases. No rhonchi. No crackles. ABDOMEN: Soft, mild diffuse discomfort on palpation. No guarding. No rigidity. No mass palpable. LEGS: No edema, no swelling. NERVOUS SYSTEM: Higher function as mentioned earlier. Moves all four limbs. No focal motor deficits. LYMPHATIC: No lymphadenopathy in the neck, axillae, groin. SKIN: No ulcer, rash. LABS: WBC 14.2, hemoglobin 14.2 sodium 140, potassium 4.6, glucose 112, creatine kinase 50, lipase 542. ASSESSMENT: 1. Acute pancreatitis, severe with abdominal pain. 2. Increased WBC. 3. History of previous recurrent pancreatitis, possibly idiopathic. 4. History of asthma. 5. Chronic obstructive pulmonary disease. 6. Gastroesophageal reflux disease. 7. Degenerative joint disease. 8. History of hepatitis B. 9. History of polio. 10.History of degenerative joint disease. 11.FULL CODE. RECOMMENDATIONS AND DISCUSSION: In this 62-year-old gentleman who presented with multiple medical issues, at this time we will monitor the patient closely. Continue the current management and symptomatic treatment. Otherwise at this time I recommend to keep the patient n.p.o. except medications. Gastroenterology consultation. CT scan of the abdomen and pelvis. Repeat amylase and lipase. Guarded prognosis because of multiple complex medical issues. Further recommendations to follow. See orders for details and home medications will be continued as well. Discussed with the patient who understands and agrees. MMODL / IJN: [id number] /
[2018-03-23] MEDS ORDERED: IPRATROPIUM-ALBUTEROL 3 ML NEB INHALATION SCH (18:00)
[2018-03-23] MEDS: HEPARIN SODIUM,PORCINE 5,000 UNIT/ML 1 ML VIAL SQ SCH (19:38)
[2018-03-23] MEDS: PANTOPRAZOLE 40 MG/10 ML VIAL IV SCH (19:39)
[2018-03-23] MEDS ORDERED: IPRATROPIUM-ALBUTEROL 3 ML NEB INHALATION PRN (21:12)
[2018-03-23] MEDS: SYMBICORT 160-4.5 MCG INHALER INHALATION SCH (21:18)
[2018-03-24] MEDS: HYDROmorphone 1 MG/ML 1 ML SYRINGE IVP PRN ×6 (02:59→21:43)
[2018-03-24] MEDS: SODIUM CHLORIDE 0.9% 1,000 ML IV SCH ×3 (06:11→23:43)
[2018-03-24] MEDS: SYMBICORT 160-4.5 MCG INHALER INHALATION SCH ×2 (07:40→19:23)
[2018-03-24 07:48] LABS: ALT 24 U/L (21-72); AST 15 U/L (17-59); Albumin 3.2 g/dL (3.5-5.0); Alkaline Phosphatase 56 U/L (38-126); Amylase 293 U/L (30-110); Anion Gap 5 mmol/L; Blood Urea Nitrogen 13 mg/dL (9-20); Calcium 8.7 mg/dL (8.4-10.2); Carbon Dioxide 24 mmol/L (22-30); Chloride 108 mmol/L (98-107); Glucose 68 mg/dL (74-99); Lipase 537 U/L (23-300); Potassium 4.4 mmol/L (3.5-5.1); Sodium 137 mmol/L (137-145); Total Bilirubin 0.9 mg/dL (0.2-1.3); Total Protein 5.5 g/dL (6.3-8.2)
[2018-03-24 07:56] LABS: Basophils % (A) 0 %; Eosinophils % (A) 0 %; HCT 38.1 % (39.0-53.0); HGB 12.4 gm/dL (13.0-17.5); Lymphocytes # (A) 1.4 k/uL (1.0-4.8); Lymphocytes % (A) 10 %; MCHC 32.5 g/dL (31.0-37.0); MCV 92.4 fL (80.0-100.0); Mean Platelet Volume 7.5; Monocytes # (A) 1.2 k/uL (0-1.0); Monocytes % (A) 9 %; Neutrophils # (A) 10.9 k/uL (1.3-7.7); Neutrophils % (A) 80 %; Platelet Count 147 k/uL (150-450); RBC 4.12 m/uL (4.30-5.90); RDW 13.6 % (11.5-15.5); WBC 13.7 k/uL (3.8-10.6)
[2018-03-24] MEDS: PANTOPRAZOLE 40 MG/10 ML VIAL IV SCH ×2 (08:20→20:08)
[2018-03-24] MEDS: HYDROcodone/APAP 5-325MG 1 EACH TAB PO PRN ×3 (08:21→23:42)
[2018-03-24] MEDS: HEPARIN SODIUM,PORCINE 5,000 UNIT/ML 1 ML VIAL SQ SCH ×2 (08:21→20:00)
[2018-03-24] MEDS: MEROPENEM 2 GM in SODIUM CHLORIDE 0.9% 100 ML IVPB SCH ×3 (08:21→23:42)
--- NOTE | 2018-03-24 11:43 | P.CONS ---
History of Present Illness - Reason for Consult Consult date: 03/24/18 Pancreatitis Requesting physician: Zenia Winter - History of Present Illness 62-year-old gentleman with a history of remote alcohol abuse and previous hospitalizations for alcohol pancreatitis admitted with acute pancreatitis. Upper abdominal pain started a few days ago after eating at a local restaurant. Denies fever chills hematemesis on a daily or melena. CT reported subtle possible. Pancreatic fat stranding possible mild edematous pancreatitis and hepatic steatosis. White count 14.7 presently 13.7. He will to 12.4. Platelet 147. BUN 13. Creatinine 0.8. LFTs unremarkable. Lipase 5427 presently 537. Review of Systems Constitutional: Denies fever, chills, sweats, weight gain, or loss. HEENT: Negative for migraines, blurred vision or loss, earaches, drainage, tinnitus, oral mucosal lesions, dysphagia, or odynophagia. Cardiac: Negative for chest pain, arrhythmias, or palpitation. Respiratory: Negative for shortness of breath, hemoptysis, cough, or sputum production. Gastrointestinal: See HPI for pertinent findings. Genitourinary: Negative for hematuria, urgency, frequency, polyuria, dysuria, or penile discharge. Musculoskeletal: Negative for muscle aches, swelling, arthritis, and arthralgias. Neurologic: Negative for stroke or TIA. Endocrine: Negative for thyroid problems. Skin: Negative for rash or itching. Psychiatric: Negative history for depression and anxiety Past Medical History Past Medical History: Asthma, COPD, CVA/TIA, GERD/Reflux, Osteoarthritis (OA) Additional Past Medical History / Comment(s): "Hepatitis B after blood transfusion when he had polio at the age of 2 or 3 yrs", pancreatitis , diverticular dx, chronic sinus problems-takes prednisone small dose daily.pancreatits,tia History of Any Multi-Drug Resistant Organisms: None Reported Past Surgical History: Joint Replacement, Orthopedic Surgery, Tonsillectomy Additional Past Surgical History / Comment(s): Right arthroscopic knee surgery, colonoscopy with benign polypectomy, EGD, sinus surgery, vasectomy,yumiko total knee replacements Past Anesthesia/Blood Transfusion Reactions: No Reported Reaction Additional Past Anesthesia/Blood Transfusion Reaction / Comm: Pt received blood when he was a small child. Smoking Status: Never smoker - Past Family History Father Family Medical History: COPD Additional Family Medical History / Comment(s): Father was a smoker. He at the age of 74 or 75yrs. Mother Family Medical History: COPD Additional Family Medical History / Comment(s): Mother is living. She is a smoker. She uses oxygen. Medications and Allergies Home Medications Medication Instructions Recorded Confirmed Type Montelukast [Singulair] 10 mg PO DAILY 12/20/14 03/23/18 History Omeprazole [PriLOSEC] 20 mg PO DAILY 06/12/17 03/23/18 History Aspirin EC [Ecotrin Low Dose] 81 mg PO DAILY 03/23/18 03/23/18 History Budesonide-Formot 160-4.5 Mcg 2 puff INHALATION RT-BID 03/23/18 03/23/18 History [Symbicort 160-4.5 Mcg Inhaler] Sildenafil Citrate [Sildenafil] 20 mg PO DAILY PRN 03/23/18 03/23/18 History Allergies Allergy/AdvReac Type Severity Reaction Status Date / Time Penicillins AdvReac Unknown Verified 03/23/18 10:34 Childhood Physical Exam Vitals: Vital Signs Temp Pulse Pulse Resp BP BP Pulse Ox 03/24/18 05:56 98.0 F 61 16 120/52 96 03/23/18 23:00 97.9 F 56 L 16 125/59 95 03/23/18 15:06 97 F L 62 18 147/71 95 03/23/18 14:38 98.0 F 49 L 18 152/66 99 03/23/18 13:35 58 L 18 167/76 100 Intake and Output 03/23/18 03/24/18 03/24/18 22:59 06:59 14:59 Other: # Voids 2 1 General appearance: The patient is alert, oriented, in no acute distress. HET: Head is normocephalic and atraumatic. Pupils are equal and reactive. Oropharynx is clear without lesions. Neck: Supple without lymphadenopathy. Trachea midline. Heart: S1 S2. Regular rate and rhythm. Lungs: No crackles or wheezes are heard. Abdomen: Soft, mild midepigastric tenderness, nondistended with bowel sounds. No peritoneal signs. No palpable organomegaly or masses. Extremities: Normal skin color and turgor. No cyanosis, rash, ulceration, clubbing, or edema. Radial and pedal pulses are 2/4 bilaterally. Neurological: No focal deficits. Strength and sensation are grossly intact. Results CBC & Chem 7: 03/24/18 07:12 03/24/18 07:12 Labs: Abnormal Lab Results - Last 24 Hours (Table) 03/23/18 03/24/18 03/24/18 Range/Units 10:45 07:12 07:12 WBC 13.7 H (3.8-10.6) k/uL RBC 4.12 L (4.30-5.90) m/uL Hgb 12.4 L (13.0-17.5) gm/dL Hct 38.1 L (39.0-53.0) % Plt Count 147 L (150-450) k/uL Neutrophils # 10.9 H (1.3-7.7) k/uL Monocytes # 1.2 H (0-1.0) k/uL Chloride 108 H (98-107) mmol/L Glucose 68 L (74-99) mg/dL AST 15 L (17-59) U/L Total Protein 5.5 L (6.3-8.2) g/dL Albumin 3.2 L (3.5-5.0) g/dL Amylase 293 H (30-110) U/L Lipase 5427 H 537 H (23-300) U/L Microbiology - Last 24 Hours (Table) 03/23/18 10:45 Urine Culture - Preliminary Urine,Voided CT scan - abdomen: report reviewed (Dr. Woody) Assessment and Plan (1) Acute pancreatitis Current Visit: Yes Status: Acute Code(s): K85.90 - ACUTE PANCREATITIS WITHOUT NECROSIS OR INFECTION, UNSP SNOMED Code(s): 715534090 Plan: 1. Enzymes are improving. Continue IV fluids. Clear liquid diet advance as tolerated. Follow-up in office in 2 weeks for reevaluation discussion of outpatient EUS. Thank you for this kind referral and the opportunity to participate in the care of your patient. This consultation was discussed with Dr. Woody. The impression and plan of care have been directed as dictated.
[2018-03-25] MEDS: HYDROmorphone 1 MG/ML 1 ML SYRINGE IVP PRN ×7 (00:59→21:57)
[2018-03-25] MEDS: HYDROcodone/APAP 5-325MG 1 EACH TAB PO PRN ×3 (05:56→18:52)
[2018-03-25] MEDS: SODIUM CHLORIDE 0.9% 1,000 ML IV SCH ×3 (06:05→21:06)
[2018-03-25 08:06] LABS: ALT 24 U/L (21-72); AST 15 U/L (17-59); Albumin 3.1 g/dL (3.5-5.0); Alkaline Phosphatase 59 U/L (38-126); Amylase 87 U/L (30-110); Anion Gap 6 mmol/L; Blood Urea Nitrogen 11 mg/dL (9-20); Calcium 8.9 mg/dL (8.4-10.2); Carbon Dioxide 24 mmol/L (22-30); Chloride 105 mmol/L (98-107); Glucose 72 mg/dL (74-99); Lipase 120 U/L (23-300); Potassium 3.9 mmol/L (3.5-5.1); Sodium 135 mmol/L (137-145); Total Bilirubin 0.9 mg/dL (0.2-1.3); Total Protein 5.5 g/dL (6.3-8.2)
[2018-03-25] MEDS: SYMBICORT 160-4.5 MCG INHALER INHALATION SCH ×2 (08:07→19:54)
[2018-03-25] MEDS: PANTOPRAZOLE 40 MG/10 ML VIAL IV SCH ×2 (08:34→21:05)
[2018-03-25] MEDS: MEROPENEM 2 GM in SODIUM CHLORIDE 0.9% 100 ML IVPB SCH ×3 (08:34→23:46)
[2018-03-25] MEDS: HEPARIN SODIUM,PORCINE 5,000 UNIT/ML 1 ML VIAL SQ SCH ×2 (08:34→21:05)
--- NOTE | 2018-03-25 09:52 | PN ---
PROGRESS NOTE DATE OF SERVICE: 03/24/2018. HISTORY: This 62-year-old gentleman who was admitted with abdominal pain, acute pancreatitis, is being closely monitored at this time. The patient had abdominal CT scan which showed very subtle peripancreatic edema, nonobstructing bilateral nephrolithiasis, hepatic steatosis. No chest pain. No palpitations. No fever. Gastroenterology is following the patient closely. EXAM: GENERAL: Alert, oriented x3. Pulse 52, blood pressure 130/65, respirations 16, temperature 99.8, pulse ox 97% on room air. HEENT: Conjunctivae normal. NECK: Supple. CARDIOVASCULAR: S1 and S2 muffled. LUNGS: Breath sounds diminished at the bases. No rhonchi, no crackles. ABDOMEN: Soft, nontender. EXTREMITIES: Legs, no edema. NERVOUS SYSTEM: No focal deficits. LABORATORY DATA: WBC 13.2, hemoglobin 12.4, amylase 293, lipase is 537. ASSESSMENT: 1. Acute pancreatitis with severe abdominal pain. 2. Increased WBC. 3. History of previous recurrent pancreatitis, possibly idiopathic. 4. History of asthma. 5. Chronic obstructive pulmonary disease. 6. Gastroesophageal reflux disease. 7. Degenerative joint disease. 8. History hepatitis B. 9. History of polio. 10.History of degenerative joint disease. 11.FULL CODE. RECOMMENDATIONS AND DISCUSSION: Recommend to continue current management and continued IV antibiotics. Continue with symptomatic treatment. Advance diet per Gastroenterology. Otherwise monitor lytes closely. Guarded prognosis. Further recommendations to follow. MMODL / IJN: [id number] /
--- NOTE | 2018-03-25 17:19 | PN ---
PROGRESS NOTE DATE OF SERVICE: 03/25/2018 This 62-year-old gentleman who was admitted with acute pancreatitis, is still complaining of pain, abdominal pain. No chest pain or palpitation. No fever. PHYSICAL EXAMINATION: On exam, alert and oriented x3. Pulse 53, blood pressure 150/71, respiration 20, temperature 99 degrees, pulse ox 97% on 2 L. HEENT: Conjunctivae normal. NECK: No jugular venous distention. CARDIOVASCULAR: S1 and S2. Muffled. RESPIRATORY: Diminished breath sounds at the bases. A few scattered rhonchi. ABDOMEN: Soft, mild diffuse tenderness. LEGS: No edema, no swelling. NERVOUS SYSTEM: No focal deficits. LABS: Sodium is 135. Amylase and lipase noted. ASSESSMENT: 1. Abdominal pain with acute pancreatitis with severe abdominal pain. 2. Increased WBC. 3. History of previous recurrent pancreatitis possibly idiopathic. 4. History of asthma. 5. History of chronic obstructive pulmonary disease. 6. History of gastroesophageal reflux disease. 7. Degenerative joint disease. 8. History hepatitis B. 9. History of polio. 10.History of degenerative joint disease. 11.FULL CODE. RECOMMENDATIONS AND DISCUSSION: Recommend to continue current medications. Continue symptomatic treatment. Otherwise at this time, will advance diet. Repeat labs in the morning. Guarded prognosis because of multiple complex medical issues. Further recommendations to follow. MMODL / IJN: [id number] /
[2018-03-26] MEDS: HYDROcodone/APAP 5-325MG 1 EACH TAB PO PRN ×4 (01:29→21:55)
[2018-03-26] MEDS: HYDROmorphone 1 MG/ML 1 ML SYRINGE IVP PRN ×5 (01:30→21:26)
[2018-03-26] MEDS: SODIUM CHLORIDE 0.9% 1,000 ML IV SCH ×3 (05:17→21:56)
[2018-03-26 07:54] LABS: Basophils % (A) 0 %; Eosinophils # (A) 0.2 k/uL (0-0.7); Eosinophils % (A) 1 %; HCT 42.6 % (39.0-53.0); HGB 14.1 gm/dL (13.0-17.5); Lymphocytes # (A) 1.8 k/uL (1.0-4.8); Lymphocytes % (A) 14 %; MCH 29.9 pg (25.0-35.0); MCHC 33.1 g/dL (31.0-37.0); MCV 90.2 fL (80.0-100.0); Mean Platelet Volume 7.5; Monocytes # (A) 0.9 k/uL (0-1.0); Monocytes % (A) 7 %; Neutrophils # (A) 9.9 k/uL (1.3-7.7); Neutrophils % (A) 77 %; Platelet Count 180 k/uL (150-450); RBC 4.72 m/uL (4.30-5.90); WBC 12.9 k/uL (3.8-10.6)
[2018-03-26] MEDS: SYMBICORT 160-4.5 MCG INHALER INHALATION SCH ×2 (07:58→19:30)
[2018-03-26 08:05] LABS: ALT 22 U/L (21-72); AST 19 U/L (17-59); Albumin 3.7 g/dL (3.5-5.0); Alkaline Phosphatase 62 U/L (38-126); Amylase 64 U/L (30-110); Anion Gap 10 mmol/L; Blood Urea Nitrogen 10 mg/dL (9-20); Calcium 9.2 mg/dL (8.4-10.2); Carbon Dioxide 23 mmol/L (22-30); Chloride 104 mmol/L (98-107); Glucose 68 mg/dL (74-99); Lipase 84 U/L (23-300); Potassium 4.4 mmol/L (3.5-5.1); Sodium 137 mmol/L (137-145); Total Protein 6.2 g/dL (6.3-8.2)
[2018-03-26] MEDS: PANTOPRAZOLE 40 MG/10 ML VIAL IV SCH ×2 (08:39→21:28)
[2018-03-26] MEDS: HEPARIN SODIUM,PORCINE 5,000 UNIT/ML 1 ML VIAL SQ SCH ×2 (08:39→21:30)
[2018-03-26] MEDS: MEROPENEM 2 GM in SODIUM CHLORIDE 0.9% 100 ML IVPB SCH ×3 (08:39→23:35)
--- NOTE | 2018-03-26 15:50 | PN ---
PROGRESS NOTE DATE OF SERVICE: 03/26/2018 This 62-year-old gentleman admitted with abdominal pain, pancreatitis, also history of recurrent pancreatitis. The patient is still complaining of abdominal pain. The patient is on clear liquids. No chest pain. No palpitations. No fever. EXAM: Alert and oriented x3. Pulse 64, blood pressure 140/64, respiration 18, temperature 99.2, pulse ox 98% on room air. HEENT: Conjunctivae normal. NECK: No jugular venous distension. CARDIOVASCULAR: S1, S2. RESPIRATORY: Breath sounds diminished in the bases. No rhonchi, no crackles. ABDOMEN: Soft, mild diffuse discomfort. No mass palpable. LEGS: No edema. NERVOUS SYSTEM: No focal deficits. LABS: WBC 2.9, hemoglobin is 14.1, sodium is 137. ASSESSMENT: 1. Abdominal pain with acute pancreatitis. 2. Increased WBC. 3. History of previous recurrent pancreatitis, possibly idiopathic. 4. History of asthma. 5. History of chronic obstructive pulmonary disease. 6. History of gastroesophageal reflux disease. 7. Degenerative joint disease. 8. History of hepatitis B. 9. History of polio. 10.History of degenerative joint disease. 11.FULL CODE. RECOMMENDATIONS AND DISCUSSION: I recommend to continue current management and symptomatic treatment. I recommend to advance diet. Repeat labs. Symptomatic treatment of the pain to be continued and increase ambulation. Guarded prognosis. Further recommendations to follow. MMODL / IJN: [id number] /
[2018-03-26 23:36] VITALS: RESP 16
[2018-03-27] MEDS: HYDROmorphone 1 MG/ML 1 ML SYRINGE IVP PRN ×2 (03:08→07:15)
[2018-03-27] MEDS: HYDROcodone/APAP 5-325MG 1 EACH TAB PO PRN ×2 (04:02→11:03)
[2018-03-27 07:31] VITALS: BP 147/78; PULSE 47; TEMP 99.6
[2018-03-27] MEDS: SYMBICORT 160-4.5 MCG INHALER INHALATION SCH (07:43)
[2018-03-27 08:52] LABS: Basophils % (A) 0 %; Eosinophils # (A) 0.2 k/uL (0-0.7); Eosinophils % (A) 2 %; HGB 14.1 gm/dL (13.0-17.5); Lymphocytes # (A) 1.4 k/uL (1.0-4.8); Lymphocytes % (A) 14 %; MCH 29.9 pg (25.0-35.0); MCHC 33.6 g/dL (31.0-37.0); Mean Platelet Volume 7.7; Monocytes % (A) 10 %; Neutrophils # (A) 7.1 k/uL (1.3-7.7); Neutrophils % (A) 72 %; Platelet Count 192 k/uL (150-450); RBC 4.72 m/uL (4.30-5.90); RDW 13.1 % (11.5-15.5); WBC 9.8 k/uL (3.8-10.6)
[2018-03-27] MEDS: MEROPENEM 2 GM in SODIUM CHLORIDE 0.9% 100 ML IVPB SCH (08:58)
[2018-03-27] MEDS: PANTOPRAZOLE 40 MG/10 ML VIAL IV SCH (08:59)
[2018-03-27] MEDS: HEPARIN SODIUM,PORCINE 5,000 UNIT/ML 1 ML VIAL SQ SCH (08:59)
[2018-03-27 09:04] LABS: ALT 20 U/L (21-72); AST 17 U/L (17-59); Albumin 3.3 g/dL (3.5-5.0); Alkaline Phosphatase 68 U/L (38-126); Amylase 59 U/L (30-110); Anion Gap 3 mmol/L; Blood Urea Nitrogen 12 mg/dL (9-20); Calcium 8.9 mg/dL (8.4-10.2); Carbon Dioxide 29 mmol/L (22-30); Chloride 105 mmol/L (98-107); Glucose 116 mg/dL (74-99); Lipase 85 U/L (23-300); Potassium 3.5 mmol/L (3.5-5.1); Sodium 137 mmol/L (137-145); Total Bilirubin 0.7 mg/dL (0.2-1.3); Total Protein 5.8 g/dL (6.3-8.2)
--- NOTE | 2018-03-27 19:39 | DS ---
DISCHARGE SUMMARY DATE OF SERVICE: 03/27/2018. FINAL DIAGNOSES: 1. Abdominal pain with acute pancreatitis. 2. Increased white blood count. 3. History of previous recurrent pancreatitis, possibly idiopathic. 4. History of asthma. 5. History of chronic obstructive pulmonary disease. 6. History of gastroesophageal reflux disease. 7. Degenerative joint disease. 8. History of hepatitis B. 9. History of polio. 10.History of degenerative joint disease. 11.FULL CODE. The patient will be discharged in stable condition with guarded prognosis. HISTORY OF PRESENT ILLNESS: This 62-year-old with a past medical history of multiple medical problems was admitted with acute pancreatitis. Treated symptomatically and since improved. Pancreatic enzymes improved and the patient was seen by Gastroenterology. Abdominal CT scan was noted and Gastroenterology recommended outpatient followup. The CT scan showed very subtle changes. The patient was able to tolerate diet at this time. On exam, vitals are stable. CARDIOVASCULAR: S1, S2. ABDOMEN: Soft. NERVOUS SYSTEM: No focal deficits. NERVOUS SYSTEM: No focal deficits. DISCHARGE ADVICE: Diet soft, low residue. Activity until follow up. Follow up with Dr. Hutchison in 2 to 3 days with the labs. Follow up with Dr. Wheeler as advised. MEDICATIONS: 1. Ecotrin 81 mg. 2. Symbicort pressure 160/4.5 two puffs b.i.d. 3. Singular 10 mg daily. 4. Prilosec 20 mg daily. 5. Sildenafil 20 mg p.o. daily p.r.n. 6. Tylenol q. 6 p.r.n. for pain. MMODL / IJN: [id number] /
== END 2018-03-27 12:56 | disposition home or self-care (01) | DRG 440 ==
LOC: EC 10:22 → 4MS4W 13:37
PROVIDERS: ADMIT Hospitalist; ATTEND Hospitalist
DX: K85.90 Acute pancreatitis without necrosis or infection, unspecified (principal); J44.9 Chronic obstructive pulmonary disease, unspecified; K21.9 Gastro-esophageal reflux disease without esophagitis; K29.00 Acute gastritis without bleeding; K76.0 Fatty (change of) liver, not elsewhere classified; K86.1 Other chronic pancreatitis; M19.90 Unspecified osteoarthritis, unspecified site; N20.0 Calculus of kidney; Z79.51 Long term (current) use of inhaled steroids; Z79.899 Other long term (current) drug therapy; Z82.5 Family history of asthma and other chronic lower respiratory diseases; Z86.12 Personal history of poliomyelitis; Z86.73 Personal history of transient ischemic attack (TIA), and cerebral infarction without residual deficits; Z96.653 Presence of artificial knee joint, bilateral; F10.11 Alcohol abuse, in remission; Z86.19 Personal history of other infectious and parasitic diseases; Z88.0 Allergy status to penicillin; J34.9 Unspecified disorder of nose and nasal sinuses; Z86.010 Personal history of colon polyps
CPT/HCPCS: 36415; 71046; 74018; 74150; 80053; 81003; 82150; 82550; 82553; 83605; 83690; 84484; 85025; 87040; 87086; 93005; 94640; 96361; 96374; 96375; 99285

== ENCOUNTER 2019-06-14 10:44 | Inpatient (IN) | payer BC, MEDICARE ==
[2019-06-14 10:52] LABS: Glucose,Whole Blood 104 mg/dL (75-99)
[2019-06-14] MEDS ORDERED: SODIUM CHLORIDE 0.9% 500 ML 500 ML IV STA (10:52)
--- NOTE | 2019-06-14 11:04 | ED ---
General Adult HPI - General Stated complaint: neuro deficit Time Seen by Provider: 06/14/19 10:52 Source: patient, family Mode of arrival: wheelchair - History of Present Illness Initial comments: Dictation was produced using [employer] dictation software. please excuse any grammatical, word or spelling errors. Chief Complaint: 63-year-old male presents with strokelike symptoms since 8:30 AM today. History of Present Illness: She is a 63-year-old male who presents today with strokelike symptoms started at 8:30. Patient was at work when he was noted to have the symptoms. He is accompanied by significant other. Patient awoke with normal symptoms. At 8:30 was noted to be aphasic not really following commands. He was also complaining of some left hand numbness to the significant other. Patient has no history of anticoagulation. The ROS documented in this emergency department record has been reviewed and confirmed by me. Those systems with pertinent positive or negative responses have been documented in the HPI. All other systems are other negative and/or no ncontributory. PHYSICAL EXAM: General Impression: Alert and oriented x0/3, not in acute distress, does not follow commands HEENT: Normocephalic atraumatic, extra-ocular movements intact, pupils equal and reactive to light bilaterally, mucous membranes moist. Cardiovascular: Heart regular rate and rhythm, S1&S2 audible, no murmurs, rubs or gallops Chest: Lungs clear to auscultation bilaterally, no rhonchi, no wheeze, no rales Abdomen: Bowel sounds present, abdomen soft, non-tender, non-distended, no organomegaly Musculoskeletal: Pulses present and equal in all extremities, no peripheral edema Motor: no focal deficits noted Neurological: CN II-XII grossly intact, no gross facial asymmetry, dense aphasia, doesn't follow commands Skin: Intact with no visualized rashes Psych: Normal affect and mood ED course: 63-year-old male presents to strokelike symptoms starting at 8:30 PM. Vital signs upon arrival are within acceptable limits. Patient given initial NIH of 7. Code stroke was paged. Blood glucose is 100 Discussed patient case with Dr. Reed recurrence patient is a candidate for TPA if CT brain is unremarkable. More history was obtained from . He allegedly woke up and h ad left upper extremity numbness upon waking. He was also having visual difficulties interpreting words on the screen while watching good morning [place] 7:30 AM. Discussed case with Dr. Damico who reviewed the films. Patient not a candidate for TPA at this time given duration of symptoms. Laboratory evaluation obtained. CBC, coag panel, metabolic panel is unremarkable. Computed tomography scan of the brain and CT angios the head is unremarkable. Chest x-ray is nonacute. Patient given rectal aspirin. Given degree of symptoms I believe patient would benefit from admission to the ICU t emporarily. Discussed patient case with neurologist Dr. Burr who will assist in the care of the patient. Discussed patient case with Dr. aFust is not and also Dr. Larsen EKG interpretation: Ventricular rate 51, sinus bradycardia, ME interval 154, care is 80, QTC 377. No ME prolongation, no QTC prolongation, no ST or T-wave changes noted. . Overall, this EKG is unremarkable - Related Data Home Medications Medication Instructions Recorded Confirmed Montelukast [Singulair] 10 mg PO DAILY 12/20/14 06/14/19 Aspirin EC [Ecotrin Low Dose] 81 mg PO DAILY 03/23/18 06/14/19 Fluticasone Nasal [place] [Flonase 1 spray EA NOSTRIL DAILY 06/14/19 06/14/19 Nasal [place]] Folic Acid 0.8 mg PO DAILY 06/14/19 06/14/19 Meloxicam [Mobic] 7.5 mg PO DAILY 06/14/19 06/14/19 Sildenafil Citrate [Viagra] 50 mg PO DAILY PRN 06/14/19 06/14/19 Tamsulosin [Flomax] 0.4 mg PO DAILY 06/14/19 06/14/19 Vitamin B Complex 1 cap PO DAILY 06/14/19 06/14/19 Previous Rx's Medication Instructions Recorded Omeprazole [PriLOSEC] 20 mg PO BID #60 capsule. 03/27/18 Allergies Allergy/AdvReac Type Severity Reaction Status Date / Time Penicillins AdvReac Unknown Verified 06/14/19 11:56 Childhood Review of Systems ROS Statement: Those systems with pertinent positive or pertinent negative responses have been documented in the HPI. ROS Other: All systems not noted in ROS Statement are negative. Past Medical History Past Medical History: Asthma, COPD, CVA/TIA, GERD/Reflux, Osteoarthritis (OA) Additional Past Medical History / Comment(s): "Hepatitis B after blood transfusion when he had polio at the age of 2 or 3 yrs", pancreatitis ,diverticular dx, chronic sinus problems-takes prednisone small dose daily.pancreatits,tia History of Any Multi-Drug Resistant Organisms: None Reported Past Surgical History: Joint Replacement, Orthopedic Surgery, Tonsillectomy Additional Past Surgical History / Comment(s): Right arthroscopic knee surgery, colonoscopy with benign polypectomy, EGD, sinus surgery, vasectomy,yumiko total knee replacements Past Anesthesia/Blood Transfusion Reactions: No Reported Reaction Additional Past Anesthesia/Blood Transfusion Reaction / Comment(s): Pt received blood when he was a small child. Smoking Status: Never smoker - Past Family History Father Family Medical History: COPD Additional Family Medical History / Comment(s): Father was a smoker. He at the age of 74 or 75yrs. Mother Family Medical History: COPD Additional Family Medical History / Comment(s): Mother is living. She is a smoker. She uses oxygen. Course Vital Signs 06/14/19 06/14/19 06/14/19 10:52 11:00 11:10 Temperature 97.6 F Pulse Rate 53 L 51 L 61 Respiratory 30 H 14 20 Rate Blood Pressure 116/99 116/99 170/78 O2 Sat by Pulse 100 98 Oximetry 06/14/19 06/14/19 11:15 11:30 Temperature Pulse Rate 66 52 L Respiratory 16 13 Rate Blood Pressure 116/99 175/88 O2 Sat by Pulse 98 Oximetry Medical Decision Making - Lab Data Result diagrams: 06/14/19 10:57 06/14/19 10:57 Lab Results 06/14/19 06/14/19 06/14/19 Range/Units 10:51 10:57 10:57 WBC 10.4 (3.8-10.6) k/uL RBC 5.01 (4.30-5.90) m/uL Hgb 15.0 (13.0-17.5) gm/dL Hct 46.6 (39.0-53.0) % MCV 92.9 (80.0-100.0) fL MCH 30.0 (25.0-35.0) pg MCHC 32.3 (31.0-37.0) g/dL RDW 13.4 (11.5-15.5) % Plt Count 223 (150-450) k/uL Neutrophils % 79 % Lymphocytes % 11 % Monocytes % 7 % Eosinophils % 1 % Basophils % 1 % Neutrophils # 8.2 H (1.3-7.7) k/uL Lymphocytes # 1.1 (1.0-4.8) k/uL Monocytes # 0.7 (0-1.0) k/uL Eosinophils # 0.1 (0-0.7) k/uL Basophils # 0.1 (0-0.2) k/uL PT (9.0-12.0) sec INR (<1.2) APTT (22.0-30.0) sec Sodium 142 (137-145) mmol/L Potassium 4.4 (3.5-5.1) mmol/L Chloride 108 H (98-107) mmol/L Carbon Dioxide 27 (22-30) mmol/L Anion Gap 7 mmol/L BUN 19 (9-20) mg/dL Creatinine 1.03 (0.66-1.25) mg/dL Est GFR (CKD-EPI)AfAm 88 (>60 ml/min/1.73 sqM) Est GFR (CKD-EPI)NonAf 76 (>60 ml/min/1.73 sqM) Glucose 122 H (74-99) mg/dL POC Glucose (mg/dL) 104 H (75-99) mg/dL POC Glu Roll Or Tape Edge Machine Operator ID Chadd Beasley Calcium 9.6 (8.4-10.2) mg/dL Total Bilirubin 1.0 (0.2-1.3) mg/dL AST 35 (17-59) U/L ALT 28 (21-72) U/L Alkaline Phosphatase 65 (38-126) U/L Total Creatine Kinase (55-170) U/L CK-MB (CK-2) (0.0-2.4) ng/mL CK-MB (CK-2) Rel Index Troponin I (0.000-0.034) ng/mL Total Protein 8.0 (6.3-8.2) g/dL Albumin 4.6 (3.5-5.0) g/dL 06/14/19 06/14/19 Range/Units 10:57 10:57 WBC (3.8-10.6) k/uL RBC (4.30-5.90) m/uL Hgb (13.0-17.5) gm/dL Hct (39.0-53.0) % MCV (80.0-100.0) fL MCH (25.0-35.0) pg MCHC (31.0-37.0) g/dL RDW (11.5-15.5) % Plt Count (150-450) k/uL Neutrophils % % Lymphocytes % % Monocytes % % Eosinophils % % Basophils % % Neutrophils # (1.3-7.7) k/uL Lymphocytes # (1.0-4.8) k/uL Monocytes # (0-1.0) k/uL Eosinophils # (0-0.7) k/uL Basophils # (0-0.2) k/uL PT 10.3 (9.0-12.0) sec INR 1.0 (<1.2) APTT 21.5 L (22.0-30.0) sec Sodium (137-145) mmol/L Potassium (3.5-5.1) mmol/L Chloride (98-107) mmol/L Carbon Dioxide (22-30) mmol/L Anion Gap mmol/L BUN (9-20) mg/dL Creatinine (0.66-1.25) mg/dL Est GFR (CKD-EPI)AfAm (>60 ml/min/1.73 sqM) Est GFR (CKD-EPI)NonAf (>60 ml/min/1.73 sqM) Glucose (74-99) mg/dL POC Glucose (mg/dL) (75-99) mg/dL POC Glu Roll Or Tape Edge Machine Operator ID Calcium (8.4-10.2) mg/dL Total Bilirubin (0.2-1.3) mg/dL AST (17-59) U/L ALT (21-72) U/L Alkaline Phosphatase (38-126) U/L Total Creatine Kinase 80 (55-170) U/L CK-MB (CK-2) 1.5 (0.0-2.4) ng/mL CK-MB (CK-2) Rel Index 1.9 Troponin I <0.012 (0.000-0.034) ng/mL Total Protein (6.3-8.2) g/dL Albumin (3.5-5.0) g/dL Critical Care Time Critical Care Time: Yes (31) Disposition Clinical Impression: Cerebrovascular accident (CVA) Disposition: ADMITTED IP TO THIS [facility] Condition: Critical Referrals: Evelina Hutchison MD [Primary Care Provider] - 1-2 days Decision Time: 12:30
[2019-06-14 11:11] LABS: Basophils # (A) 0.1 k/uL (0-0.2); Basophils % (A) 1 %; Eosinophils # (A) 0.1 k/uL (0-0.7); Eosinophils % (A) 1 %; HCT 46.6 % (39.0-53.0); Lymphocytes # (A) 1.1 k/uL (1.0-4.8); Lymphocytes % (A) 11 %; MCHC 32.3 g/dL (31.0-37.0); MCV 92.9 fL (80.0-100.0); Mean Platelet Volume 7.3; Monocytes # (A) 0.7 k/uL (0-1.0); Monocytes % (A) 7 %; Neutrophils # (A) 8.2 k/uL (1.3-7.7); Neutrophils % (A) 79 %; Platelet Count 223 k/uL (150-450); RBC 5.01 m/uL (4.30-5.90); RDW 13.4 % (11.5-15.5); WBC 10.4 k/uL (3.8-10.6)
[2019-06-14] MEDS ORDERED: ASPIRIN 81 MG PO STA (11:24)
[2019-06-14 11:27] LABS: Albumin 4.6 g/dL (3.5-5.0); Calcium 9.6 mg/dL (8.4-10.2)
[2019-06-14 11:29] LABS: Creatine Kinase 80 U/L (55-170)
--- NOTE | 2019-06-14 11:29 | CT ---
EXAMINATION TYPE: CT brain wo con for TPA DATE OF EXAM: 06/14/2019 COMPARISON: 02/04/2017 HISTORY: altered mental status Automated exposure control for dose reduction was used. FINDINGS: No abnormal hyperdensity is present to suggest an acute intracranial hemorrhage. No mass lesion is ev ident. No acute infarcts are evident. Mild deep white matter hypodensity is present likely on the bas is of chronic white matter ischemic changes. Findings appear stable from comparison. Ventricles and s ulci are appropriate for the patient age. There is increasing opacification of the maxillary sinus. T here is increasing opacification through the ethmoid air cells. Frontal sinus on the left has some de veloping mucosal thickening. Inferior right frontal mucosal thickening is present. Mastoid air cells are clear. IMPRESSION: 1. No evidence of acute intracranial hemorrhage or mass effect. 2. Degenerative and nonspecific white matter changes most typical remote microvascular ischemia. If t here is concern for acute ischemia correlate with MRI as clinically warranted.
[2019-06-14 11:30] LABS: Potassium 4.4 mmol/L (3.5-5.1)
[2019-06-14 11:36] LABS: Prothrombin Time 10.3 sec (9.0-12.0)
[2019-06-14 11:38] LABS: Partial Thromboplastin Time 21.5 sec (22.0-30.0)
--- NOTE | 2019-06-14 11:41 | CT ---
EXAMINATION TYPE: CT angio head neck DATE OF EXAM: 06/14/2019 COMPARISON: HISTORY: altered mental status CT DLP: 570.5 mGycm CONTRAST: Performed with IV Contrast, patient injected with 65 mL of Isovue 370. Combination Contrast CTA cervical carotids and [place] CTA cervical carotids with 3-D recons truction Contrast CTA of the cervical carotids was performed 3-D reconstruction imaging obtained at a separate workstation. Right carotid system: Mild plaque is seen of the right common carotid artery. There is mild plaque a lso noted at the carotid bulb and proximal ICA. No significant diameter reduction. ECA is patent. Right vertebral artery appears unremarkable. Left carotid system: Mild plaque is seen of the left common carotid artery. There is mild plaque als o noted at the carotid bulb and proximal ICA. No significant diameter reduction. ECA is patent. Lef t vertebral artery appears unremarkable. IMPRESSION: 1. No significant diameter reduction to account for the patient's symptoms. CTA [place] with 3-D reconstruction Contrast CTA of the [place] was performed 3-D reconstruction imaging obtained at a separate workstation. Vertebrobasilar system as well as intracranial portions of the internal carotid arteries and their [place] tributaries are patent. I do not see evidence for sizable aneurysm or vascular malformation. Pl ease note MRI provides greater sensitivity and specificity. Visualized brain appears grossly unremar kable. IMPRESSION: 1. No significant abnormality.
[2019-06-14 11:42] LABS: Creatine Kinase MB 1.5 ng/mL (0.0-2.4); Troponin I <0.012 ng/mL (0.000-0.034)
[2019-06-14] MEDS ORDERED: ASPIRIN 600 MG SUPP RECTAL STA (12:06)
--- NOTE | 2019-06-14 12:22 | XR ---
EXAMINATION TYPE: XR chest 2V DATE OF EXAM: 06/14/2019 COMPARISON: 03/23/2018 HISTORY: 63-year-old male confusion, altered mental status TECHNIQUE: AP and lateral views FINDINGS: Heart upper limits of normal in size. Aorta and pulmonary vasculature within normal limits. Some stra ndy atelectasis in the lower lungs. No consolidation or pleural effusion. IMPRESSION: Borderline heart size. No definite acute process.
[2019-06-14] MEDS: SODIUM CHLORIDE 0.9% 1,000 ML IV SCH ×2 (13:31→22:37)
--- NOTE | 2019-06-14 14:01 | P.HPIM ---
History of Present Illness Patient is a 58-year-old gentleman was brought into ER with the symptoms of weakness in the left arm although when I evaluated it's not very clear whether patient actually has weakness in the left arm. Patient will also aphasic. Miguel johnson appears to understand but unable to bring the words out. Patient either has global a motor aphasia. Patient is oriented times around 2. Does follow the commands upon multiple palpitations. 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 was evaluated in urology CT of the head did not show any acute bleed. She'll undergo an MRI of the brain patient doesn't have any fevers chills patient was complaining of headache denied any history of migraine. Denied any vomiting. Denied any seizure. Patient did not qualify for thrombolytic therapy. Patient does take baby aspirin at home. Review of Systems Review of systems: Unable to obtain except those mentioned above Past Medical History Past Medical History: Asthma, COPD, CVA/TIA, GERD/Reflux, Osteoarthritis (OA) Additional Past Medical History / Comment(s): "Hepatitis B after blood transfusion when he had polio at the age of 2 or 3 yrs", pancreatitis ,diverticular dx, chronic sinus problems-takes prednisone small dose daily.pancreatits,tia History of Any Multi-Drug Resistant Organisms: None Reported Past Surgical History: Joint Replacement, Orthopedic Surgery, Tonsillectomy Additional Past Surgical History / Comment(s): Right arthroscopic knee surgery, colonoscopy with benign polypectomy, EGD, sinus surgery, vasectomy,yumiko total knee replacements Past Anesthesia/Blood Transfusion Reactions: No Reported Reaction Additional Past Anesthesia/Blood Transfusion Reaction / Comment(s): Pt received blood when he was a small child. Smoking Status: Never smoker - Past Family History Father Family Medical History: COPD Additional Family Medical History / Comment(s): Father was a smoker. He at the age of 74 or 75yrs. Mother Family Medical History: COPD Additional Family Medical History / Comment(s): Mother is living. She is a smoker. She uses oxygen. Medications and Allergies Home Medications Medication Instructions Recorded Confirmed Type Montelukast [Singulair] 10 mg PO DAILY 12/20/14 06/14/19 History Aspirin EC [Ecotrin Low Dose] 81 mg PO DAILY 03/23/18 06/14/19 History Omeprazole [PriLOSEC] 20 mg PO BID #60 capsule. 03/27/18 06/14/19 Rx Fluticasone Nasal [place] [Flonase 1 spray EA NOSTRIL DAILY 06/14/19 06/14/19 History Nasal [place]] Folic Acid 0.8 mg PO DAILY 06/14/19 06/14/19 History Meloxicam [Mobic] 7.5 mg PO DAILY 06/14/19 06/14/19 History Sildenafil Citrate [Viagra] 50 mg PO DAILY PRN 06/14/19 06/14/19 History Tamsulosin [Flomax] 0.4 mg PO DAILY 06/14/19 06/14/19 History Vitamin B Complex 1 cap PO DAILY 06/14/19 06/14/19 History Allergies Allergy/AdvReac Type Severity Reaction Status Date / Time Penicillins AdvReac Unknown Verified 06/14/19 11:56 Childhood Physical Exam Vitals: Vital Signs Temp Pulse Resp BP Pulse Ox 06/14/19 13:30 72 28 H 186/88 06/14/19 13:15 59 L 15 162/125 06/14/19 13:00 12 195/100 06/14/19 12:45 49 L 17 190/91 06/14/19 12:30 56 L 15 179/88 06/14/19 12:15 179/88 06/14/19 12:00 49 L 16 181/90 98 06/14/19 11:45 59 L 19 162/98 91 L 06/14/19 11:30 52 L 13 175/88 98 06/14/19 11:15 66 16 116/99 06/14/19 11:10 61 20 170/78 98 06/14/19 11:00 51 L 14 116/99 06/14/19 10:52 97.6 F 53 L 30 H 116/99 100 Intake and Output 06/13/19 06/14/19 06/14/19 22:59 06:59 14:59 Other: Weight 90.4 kg PHYSICAL EXAMINATION: GENERAL: The patient is alert and oriented x1-2, not in any acute distress. Well developed, well nourished. HEENT: Pupils are round and equally reacting to light. EOMI. No scleral icterus. No conjunctival pallor. Normocephalic, atraumatic. No pharyngeal erythema. No thyromegaly. CARDIOVASCULAR: S1 and S2 present. No murmurs, rubs, or gallops. PULMONARY: Chest is clear to auscultation, no wheezing or crackles. ABDOMEN: Soft, nontender, nondistended, normoactive bowel sounds. No palpable organomegaly. MUSCULOSKELETAL: No joint swelling or deformity. EXTREMITIES: No cyanosis, clubbing, or pedal edema. NEUROLOGICAL: As mentioned in HPI. Patient either has motor aphasia or global aphasia SKIN: No rashes. Results CBC & Chem 7: 06/14/19 10:57 06/14/19 10:57 Labs: Abnormal Lab Results - Last 24 Hours (Table) 06/14/19 06/14/19 06/14/19 Range/Units 10:51 10:57 10:57 Neutrophils # 8.2 H (1.3-7.7) k/uL APTT (22.0-30.0) sec Chloride 108 H (98-107) mmol/L Glucose 122 H (74-99) mg/dL POC Glucose (mg/dL) 104 H (75-99) mg/dL 06/14/19 Range/Units 10:57 Neutrophils # (1.3-7.7) k/uL APTT 21.5 L (22.0-30.0) sec Chloride (98-107) mmol/L Glucose (74-99) mg/dL POC Glucose (mg/dL) (75-99) mg/dL Assessment and Plan Plan: Possible cerebrovascular accident patient either has moderate facial global aphagia. Questionable left arm weakness. Patient probably has ischemic stroke. MRA did light up and will be obtained was evaluated by neurology. Patient probably has ischemic stroke in the anteroseptal artery of middle cerebral artery territory. Physical therapy, speech and occupational therapy will be consulted light. Panel will be obtained -Gastroesophageal reflux disease -History of hepatitis B after blood transfusion.
[2019-06-14] MEDS ORDERED: INFLUENZA VACCINE (6 MOS+) 60 MCG/0.5 ML SYRINGE IM ONE (14:16)
[2019-06-14 14:32] LABS: Glucose,Whole Blood 95 mg/dL (75-99)
[2019-06-14] MEDS: HEPARIN SODIUM,PORCINE 5,000 UNIT/ML 1 ML VIAL SQ SCH (16:34)
[2019-06-14] MEDS ORDERED: LABETALOL 5 MG/ML VIAL MDV IVP PRN (19:43)
[2019-06-14 20:21] LABS: Hemoglobin A1C 5.5 % (4.0-6.0)
[2019-06-14] MEDS ORDERED: PANTOPRAZOLE 40 MG TABLET PO SCH (21:00)
[2019-06-14] MEDS ORDERED: FAMOTIDINE 20 MG TAB PO SCH (21:00)
[2019-06-14] MEDS ORDERED: ACETAMINOPHEN TAB 500 MG TAB PO PRN (23:40)
[2019-06-15] MEDS: HEPARIN SODIUM,PORCINE 5,000 UNIT/ML 1 ML VIAL SQ SCH (00:19)
[2019-06-15 05:43] LABS: Basophils # (A) 0.1 k/uL (0-0.2); Basophils % (A) 1 %; Eosinophils % (A) 0 %; HCT 40.8 % (39.0-53.0); HGB 13.5 gm/dL (13.0-17.5); Lymphocytes # (A) 2.5 k/uL (1.0-4.8); Lymphocytes % (A) 24 %; MCH 30.6 pg (25.0-35.0); MCHC 33.2 g/dL (31.0-37.0); Mean Platelet Volume 7.6; Monocytes % (A) 10 %; Neutrophils # (A) 6.5 k/uL (1.3-7.7); Neutrophils % (A) 63 %; Platelet Count 175 k/uL (150-450); RBC 4.43 m/uL (4.30-5.90); RDW 13.3 % (11.5-15.5); WBC 10.4 k/uL (3.8-10.6)
[2019-06-15 05:57] LABS: African American GFR (CKD) >90 (>60 ml/min/1.73 sqM); Anion Gap 8 mmol/L; Blood Urea Nitrogen 14 mg/dL (9-20); Calcium 8.6 mg/dL (8.4-10.2); Carbon Dioxide 23 mmol/L (22-30); Chloride 108 mmol/L (98-107); Cholesterol 141 mg/dL (<200); Glucose 91 mg/dL (74-99); Potassium 3.8 mmol/L (3.5-5.1); Sodium 139 mmol/L (137-145)
[2019-06-15 06:13] LABS: HDL Cholesterol 53 mg/dL (40-60); LDL Cholesterol,Calculated 78 mg/dL (0-99); Triglycerides 52 mg/dL (<150)
[2019-06-15 06:55] LABS: Glucose,Whole Blood 86 mg/dL (75-99)
--- NOTE | 2019-06-15 06:56 | CT ---
EXAM: CT Head Without Intravenous Contrast CLINICAL HISTORY: ITS.REASON CT Reason: Severe Headache TECHNIQUE: Axial computed tomography images of the head/brain without intravenous contrast. CTDI is 49 mGy and DLP is 586 mGy-cm. This CT exam was performed using one or more of the following dose reduction techniques: automated exposure control, adjustment of the mA and/or kV according to patient size, and/or use of iterative reconstruction technique. COMPARISON: CT head 06/14/19 FINDINGS: Brain: No hemorrhage or mass effect. Ventricles: No hydrocephalus. Bones/joints: Unremarkable. Soft tissues: Unremarkable. Sinuses: Unremarkable. Mastoid air cells: Clear. IMPRESSION: No acute hemorrhage, hydrocephalus, or mass effect.
[2019-06-15] MEDS ORDERED: PANTOPRAZOLE 40 MG TABLET PO SCH (07:30)
[2019-06-15 08:03] LABS: Glucose,Whole Blood 95 mg/dL (75-99)
[2019-06-15 08:36] VITALS: TEMP 99.2
--- NOTE | 2019-06-15 08:38 | CONS ---
CONSULTATION PULMONARY/CRITICAL CARE CONSULTATION: DATE OF CONSULTATION: 06/15/2019 This is a patient who was initially seen by Dr. Clemente in the emergency room. He apparently was found at work to be confused and somewhat disoriented. He was thought to have some stroke-like symptoms. For that reason, he came in to the hospital. The patient has had negative CT of the brain x2 and CT angio that was negative as well. This morning he had severe head discomfort and the second CT was done and that was also negative. Apparently the patient either has been seen or the neurologist has been spoken to about this patient. He initially came in with some left-sided complaints and he apparently was either having difficulty speaking or was completely aphasic. He had some left hand numbness and maybe some weakness as well. Through the night, some of these complaints have improved, but this morning, he started having additional confusion and disorientation. He is not quite sure where he is at. He seems to repeat things over and over. He also complained of the head pain which necessitated the second CT scan. I have asked the nurses to call the Primary Service and see if they cannot transfer this patient [facility] to [facility] or [facility]. I do not know that we have adequate neurology coverage at this time. . HOME MEDICATIONS: Include Singulair, aspirin, Flonase nasal spray, folic acid, meloxicam, Viagra, Flomax, vitamin B complex. He also previously was on some Prilosec. ALLERGIES: PENICILLIN. MEDICAL HISTORY: Asthma, gastroesophageal reflux disease, DJD, hepatitis B, polio, 4 episodes of pancreatitis two of which were related to previous heavy alcohol use, diverticular disease, chronic sinus disease and possible TIA in the past. SURGICAL HISTORY: Includes joint replacement, tonsillectomy, right knee arthroscopy, colonoscopy with polypectomy, EGD, sinus surgery, vasectomy, and knee replacement. SOCIAL HISTORY: Negative for tobacco use. He was a previous heavy drinker. No illicit drug use. FAMILY HISTORY: Positive for father with COPD who was a smoker. Mother also was a smoker, had COPD. She is currently living on oxygen therapy. REVIEW OF SYSTEMS: Could not be obtained from the patient. From the ER edna and from the family member who is in the room, apparently it is related to primarily confusion, disorientation, difficulty speaking or not being able to speak and some left-sided numbness and weakness. Current vital signs are reviewed, temperature is 98.6, heart rate is 49, respiratory rate 16, blood pressure was 170 systolic, room air saturation 96%. I did ask the nurse to place the patient on a couple L of oxygen. The patient is confused and disoriented. He repeats things over and over when asked various questions. HEENT: Examination is grossly unremarkable. There may be a slight left facial droop. NECK: Supple. Full range of motion. No adenopathy. CARDIOVASCULAR: Examination reveals regular rhythm and rate. Heart rate about 50 beats per minute. S1, S2 normal. LUNGS: Reveal clear breath sounds. ABDOMEN: Soft, bowel sounds are noted. EXTREMITIES: Intact. He does move all 4 extremities. I do not perceive a significant deficit. SKIN: Without rash. NEUROLOGIC: Examination is difficult to assess. He is able to speak but very confused and somewhat disoriented. He does move all 4 extremities. There may be a slight left facial droop. LAB DATA: Includes a white count 10.4, hemoglobin 13.5, hematocrit 40.8, platelet count 175,000. Sodium, potassium normal. Chloride is 108, CO2 is 23, anion gap is 8. BUN and creatinine were 14 and 0.95. Rest of the labs look okay. TSH was normal. Troponins were negative. The patient had initial head CT done yesterday morning. It showed no evidence of acute intracranial hemorrhage or mass effect. There was some remote microvascular ischemic changes. An angio CT was done subsequent to the brain CT. It showed no significant diameter reduction to account for the patient's symptoms and there is no significant abnormality in the vertebrobasilar or the [place]. A chest x-ray showed some borderline cardiomegaly. A follow-up CT scan this morning at 0655 showed no acute hemorrhage, hydrocephalus or mass effect. MEDICATIONS: Reviewed. He is currently on Tylenol, aspirin, famotidine, subcu heparin, labetalol, Protonix and an IV of 0.9 at 100 mL an hour and Flomax. ASSESSMENT: 1. Fluctuating mental status in a patient with stroke-like symptoms, but negative CT of brain x2 and negative CT angiogram. 2. History of four episodes of pancreatitis, two of which were related to previous heavy alcohol abuse. 3. Lifelong nonsmoker. 4. History of chronic sinus disease and allergies. 5. History of asthma. 6. Previous history of transient ischemic attack/cerebrovascular accident. 7. Gastroesophageal reflux disease. 8. Osteoarthritis. 9. History of hepatitis B. 10.Previous history of polio. 11.Diverticular disease. PLAN: I think the patient should be transferred out. We are coming into the weekend where will not have neurology coverage. I do not see a not neurology consultation on the chart as yet. I do not know if Dr. Burr has been contacted. Additional recommendations and suggestions are forthcoming. Will talk to the primary service and Neurology Service. Prognosis is guarded. MMODL / IJN: [id number] /
[2019-06-15] MEDS ORDERED: TAMSULOSIN 0.4 MG CAP.ER.24H PO SCH (09:00)
[2019-06-15] MEDS ORDERED: ASPIRIN 300 MG SUPP RECTAL SCH (09:00)
--- NOTE | 2019-06-15 09:16 | P.CNNES ---
History of Present Illness Consult date: 06/14/19 Reason for Consult: Concern for stroke Chief complaint: Difficulty with speech, confusion History of Present Illness: HISTORY OF PRESENT ILLNESS: Thank you for allowing me to evaluate Mr. Ta Ortiz. Mr. Ta Ortiz is a 63-year-old right-handed male with past medical history of COPD, GERD, osteoarthritis, hepatitis B, pancreatitis, TIA, diverticular disease, resident Radha Chow for difficulty with speech. Patient's fiance is at bedside for corroborating information. She states the patient woke up this morning, with no symptoms. Around 8:30 this morning, patient started having difficulty with following commands and also having difficulty with using his hands. He also felt the patient has some left-sided weakness. Patient had also complained to his fiance about some numbness in his left hand. Patient denies any pain, but he's able to provide any history. He states the patient does not have any recent sickness, recent travel, fevers, complaints of visual deficits, diarrhea or constipation. PAST MEDICAL HISTORY: COPD, GERD, osteoarthritis, hepatitis B, pancreatitis, TIA, diverticular disease PAST SURGICAL HISTORY: Tonsillectomy, right arthroscopic knee surgery, sinus surgery, vasectomy, bilateral total knee replacements HOME MEDICATIONS: Montelukast, aspirin, omeprazole, meloxicam, folic acid, vitamin B complex, tamsulosin, Viagra ALLERGIES: Penicillins SOCIAL HISTORY: Never smoker. FAMILY HISTORY: Father smoker had COPD, at the age of 74. Mother is also smoker and needs oxygen for COPD REVIEW OF SYSTEMS: The 14 systems are reviewed and no additional points are identified compared to the review of systems documented history and physical PHYSICAL EXAMINATION: VITAL SIGNS: T 99.2 HR 60 RR 29 BP 174/78 O2 sat 98% on RA GEN.: anxious, keeps saying, "I don't know what's happening," and when asked questions, patient says "yes" only HEENT: NCAT, sclera without icterus NECK: Supple SKIN AND EXTREMITIES: Warm to touch, no edema NEURO: MENTAL STATUS: Patient alert, not able to state his name, looking around confused and anxious, more with receptive aphasia. Cannot name or repeat. No right and left disorientation CRANIAL NERVES II THROUGH XII: II: Pupils are equal and reactive to light symmetrically. BTT bilaterally. III, IV, : No ptosis. Extraocular movements full. No nystagmus.VII. Mild L facial droop. MOTOR: Normal bulk/tone. No pronator drift or tremor. At least 4/5 in all 4 extremities SENSORY: Yelps, withdraws and grimaces to noxious stimuli in all 4 extremities REFLEXES: 2+ throughout. Toes are downgoing. COORDINATION/GAIT: Deferred due to confusion DIAGNOSTIC TESTING: LABORATORY: WBC 10.4 hemoglobin 15.0 platelet 223 PT 10.3 INR 1.0 sodium 142 potassium 4.4 chloride 108 bicarb 27 BUN 19 creatinine 1.03 glucose 122 A1C 5.5 AST 35 ALT 28 troponin <0.012 Total cholesterol 141 LDL 78 HDL 53 triglycerides 52 TSH 0.814 IMAGING: CT head without contrast 06/14/2019: No evidence of acute intracranial hemorrhage or mass effect. Degenerative and nonspecific white matter changes most typical remote microvascular ischemia. Hypodensity in right anterior internal capsule, most likely old stroke CTA head and neck with contrast 06/14/2019: No significant diameter reduction to account for the patient's symptoms. No significant abnormality. ASSESSMENT: 63-year-old right-handed male with past medical history of COPD, GERD, osteoarthritis, hepatitis B, pancreatitis, TIA, diverticular disease, resident Radha Chow for difficulty with speech. On exam, patient has what appears to be more of a receptive aphasia, which would localize the lesion to left temporal lobe. Patient is right-handed, with a big MCA stroke, patient would have significant right-sided weakness and symptoms, but at this time, augie ent with obvious focality other than mild left facial droop. CT head showing a possible right internal capsule lacunar stroke, which could account for his left-sided deficits. Patient at this time and admitted to ICU for more frequent neuro checks and there is still a concern for possible PICC area of stroke. RECOMMENDATIONS: 1. MRI brain without contrast 2. Transthoracic echocardiogram 3. Cardiac monitoring 4. Permissive HTN for 24-48 hours SBP >220. Give labetalol 10mg IV q1h PRN for SBP >220 DBP >110 5. ASA 81mg qday and Plavix 75mg qday (dual antiplatelet therapy for 3 weeks per POINT trial, then Aspirin 81mg qday only) 6. Atorvastatin 80mg qhs 7. Labs: A1C, TSH, FLP 8. PT/OT/ST per protocol 9. Neurology will continue to follow 10. Patient needs to follow up with neurologist as outpatient with her 1-2 weeks of discharge Past Medical History Past Medical History: Asthma, COPD, CVA/TIA, GERD/Reflux, Osteoarthritis (OA) Additional Past Medical History / Comment(s): "Hepatitis B after blood transfusion when he had polio at the age of 2 or 3 yrs", pancreatitis ,diverticu lar dx, chronic sinus problems-takes prednisone small dose daily.pancreatits,tia History of Any Multi-Drug Resistant Organisms: None Reported Past Surgical History: Joint Replacement, Orthopedic Surgery, Tonsillectomy Additional Past Surgical History / Comment(s): Right arthroscopic knee surgery, colonoscopy with benign polypectomy, EGD, sinus surgery, vasectomy,yumiko total knee replacements Past Anesthesia/Blood Transfusion Reactions: No Reported Reaction Additional Past Anesthesia/Blood Transfusion Reaction / Comment(s): Pt received blood when he was a small child. Smoking Status: Never smoker - Past Family History Father Family Medical History: COPD Additional Family Medical History / Comment(s): Father was a smoker. He at the age of 74 or 75yrs. Mother Family Medical History: COPD Additional Family Medical History / Comment(s): Mother is living. She is a smoker. She uses oxygen. Medications and Allergies Home Medications Medication Instructions Recorded Confirmed Type Montelukast [Singulair] 10 mg PO DAILY 12/20/14 06/14/19 History Aspirin EC [Ecotrin Low Dose] 81 mg PO DAILY 03/23/18 06/14/19 History Omeprazole [PriLOSEC] 20 mg PO BID #60 capsule. 03/27/18 06/14/19 Rx Fluticasone Nasal [place] [Flonase 1 spray EA NOSTRIL DAILY 06/14/19 06/14/19 History Nasal [place]] Folic Acid 0.8 mg PO DAILY 06/14/19 06/14/19 History Meloxicam [Mobic] 7.5 mg PO DAILY 06/14/19 06/14/19 History Sildenafil Citrate [Viagra] 50 mg PO DAILY PRN 06/14/19 06/14/19 History Tamsulosin [Flomax] 0.4 mg PO DAILY 06/14/19 06/14/19 History Vitamin B Complex 1 cap PO DAILY 06/14/19 06/14/19 History Allergies Allergy/AdvReac Type Severity Reaction Status Date / Time Penicillins AdvReac Unknown Verified 06/14/19 11:56 Childhood Physical Examination - Vital Signs Vital Signs: Vital Signs Temp Pulse Resp BP Pulse Ox 06/14/19 19:00 54 L 18 158/61 96 06/14/19 18:00 54 L 12 171/39 96 06/14/19 17:00 55 L 18 156/63 96 06/14/19 16:00 53 L 14 154/66 97 06/14/19 15:28 14 06/14/19 15:15 63 16 175/82 98 06/14/19 15:00 58 L 16 171/84 97 06/14/19 14:45 99.4 F 63 14 177/84 96 06/14/19 14:35 99.4 F 59 L 14 107/88 96 06/14/19 14:00 53 L 16 184/86 06/14/19 13:45 56 L 22 149/104 06/14/19 13:30 72 28 H 186/88 06/14/19 13:15 59 L 15 162/125 06/14/19 13:00 12 195/100 06/14/19 12:45 49 L 17 190/91 06/14/19 12:30 56 L 15 179/88 06/14/19 12:15 179/88 06/14/19 12:00 49 L 16 181/90 98 06/14/19 11:45 59 L 19 162/98 91 L 06/14/19 11:30 52 L 13 175/88 98 06/14/19 11:15 66 16 116/99 06/14/19 11:10 61 20 170/78 98 06/14/19 11:00 51 L 14 116/99 06/14/19 10:52 97.6 F 53 L 30 H 116/99 100 Intake and Output 06/14/19 06/14/19 06/14/19 06:59 14:59 22:59 Intake Total 500 Output Total 475 Balance 25 Intake: IV 500 Sodium Chloride 0.9% 1, 500 000 ml @ 100 mls/hr IV . Q10H [facility] Rx#:[id number] Output: Urine 475 Other: Voiding Method Indwelling Catheter Weight 90.4 kg Results - Laboratory Findings CBC and BMP: 06/15/19 04:48 06/15/19 04:49 Abnormal Lab Findings: Abnormal Labs 06/14/19 06/14/19 06/14/19 10:51 10:57 10:57 Neutrophils # 8.2 H APTT Chloride 108 H Glucose 122 H POC Glucose (mg/dL) 104 H 06/14/19 10:57 Neutrophils # APTT 21.5 L Chloride Glucose POC Glucose (mg/dL)
[2019-06-15 10:06] VITALS: BP 171/71; PULSE 46; RESP 17
--- NOTE | 2019-06-15 10:13 | ECHOF ---
Referral Reason:Concern for stroke MEASUREMENTS -------- HEIGHT: 170.2 cm WEIGHT: 90.3 kg BP: 149/104 RVIDd: 3.5 cm (< 3.3) IVSd: 1.2 cm (0.6 - 1.1) LVIDd: 4.9 cm (3.9 - 5.3) LVPWd: 1.2 cm (0.6 - 1.1) IVSs: 1.7 cm LVIDs: 3.1 cm LVPWs: 1.7 cm LA Diam: 4.1 cm (2.7 - 3.8) LAESV Index (A-L): 30.10 ml/m Ao Diam: 3.1 cm (2.0 - 3.7) AV Cusp: 2.4 cm (1.5 - 2.6) MV EXCURSION: 18.742 mm (> 18.000) MV EF SLOPE: 123 mm/s (70 - 150) EPSS: 0.3 cm RAP: 5.00 mmHg RVSP: 22.99 mmHg TAPSE: 25.38 mm FINDINGS -------- Sinus rhythm. This was a technically good study. The left ventricular size is normal. There is borderline concentric left ventricular hypertrophy. Overall left ventricular systolic function is normal with, an EF between 60 - 65 %. The right ventricle is mildly enlarged. LA is midly dilated 29-33ml/m2. The right atrium is normal in size. Interatrial and interventricular septum intact. The aortic valve is trileaflet and appears structurally normal. There is trace mitral regurgitation. Mild tricuspid regurgitation present. Right ventricular systolic pressure is normal at < 35 mmHg. Trace/mild (physiologic) pulmonic regurgitation. The aortic root size is normal. IVC Not well visulized. There is no pericardial effusion. CONCLUSIONS -------- 1. Sinus rhythm. 2. This was a technically good study. 3. The left ventricular size is normal. 4. There is borderline concentric left ventricular hypertrophy. 5. Overall left ventricular systolic function is normal with, an EF between 60 - 65 %. 6. The right ventricle is mildly enlarged. 7. LA is midly dilated 29-33ml/m2. 8. The right atrium is normal in size. 9. Interatrial and interventricular septum intact. 10. The aortic valve is trileaflet and appears structurally normal. 11. There is trace mitral regurgitation. 12. Mild tricuspid regurgitation present. 13. Right ventricular systolic pressure is normal at < 35 mmHg. 14. Trace/mild (physiologic) pulmonic regurgitation. 15. The aortic root size is normal. 16. IVC Not well visulized. 17. There is no pericardial effusion. PANTS CLOSER: Riana Ambrose RDCS
[2019-06-15] MEDS: SODIUM CHLORIDE 0.9% 1,000 ML IV SCH (10:15)
== END 2019-06-15 11:05 | disposition short-term general hospital (02) | DRG 65 ==
LOC: EC 10:44 → 2SICU 12:27
PROVIDERS: ADMIT Internal Medicine; ATTEND Internal Medicine
DX: I63.519 Cerebral infarction due to unspecified occlusion or stenosis of unspecified middle cerebral artery (principal); G81.91 Hemiplegia, unspecified affecting right dominant side; J44.9 Chronic obstructive pulmonary disease, unspecified; K21.9 Gastro-esophageal reflux disease without esophagitis; K57.90 Diverticulosis of intestine, part unspecified, without perforation or abscess without bleeding; M19.90 Unspecified osteoarthritis, unspecified site; R29.707 NIHSS score 7; R47.01 Aphasia; Z79.1 Long term (current) use of non-steroidal anti-inflammatories (NSAID); Z79.82 Long term (current) use of aspirin; Z79.899 Other long term (current) drug therapy; Z82.5 Family history of asthma and other chronic lower respiratory diseases; Z86.12 Personal history of poliomyelitis; Z96.653 Presence of artificial knee joint, bilateral; Z79.51 Long term (current) use of inhaled steroids; Z88.0 Allergy status to penicillin
CPT/HCPCS: 36415; 70450; 70496; 70498; 71046; 80048; 80053; 80061; 82550; 82553; 83036; 84443; 84484; 85025; 85610; 85730; 93005; 93306; 96360; 99291

== ENCOUNTER 2020-06-26 07:29 | Inpatient (IN) | payer MEDICARE ==
[2020-06-26] MEDS ORDERED: SODIUM CHLORIDE 0.9% 500 ML 500 ML IV STA (08:10)
--- NOTE | 2020-06-26 08:15 | ED ---
General Adult HPI - General Chief complaint: Neuro Symptoms/Deficit Stated complaint: Poss Stroke Symptoms Time Seen by Provider: 06/26/20 07:40 Source: patient, family, RN notes reviewed, old records reviewed Mode of arrival: wheelchair Limitations: no limitations - History of Present Illness Initial comments: This is a 64-year-old male who presents emergency Department with a past medical history significant for what he believed been a TIA. Patient states she's had similar symptoms over the last year on and off. Patient states he was last normal on Tuesday evening. Patient states he woke up Tuesday morning with expressive aphasia and left-sided weakness and loss of some of his coordination of the left hand and arm. Patient states symptoms improved last night however this morning they were worsened again. Patient states he was unable to grab things with good coordination. Patient denies headache. Patient states he has a little bit of decreased sensation in his left arm. Patient states all of these symptoms he has had in the past and he had one year ago when he had a full workup done. Patient denies any chest pain palpitations difficulty breathing first breath. Patient has an abdominal pain patient denies nausea vomiting di arrhea. Patient denies any recent fever chills or cough. Patient denies any new medications. Patient states he is on aspirin but is not on Plavix. - Related Data Home Medications Medication Instructions Recorded Confirmed Aspirin EC [Ecotrin Low Dose] 81 mg PO DAILY 03/23/18 06/26/20 Folic Acid 0.8 mg PO DAILY 06/14/19 06/26/20 Sildenafil Citrate [Viagra] 50 mg PO DAILY PRN 06/14/19 06/26/20 Tamsulosin [Flomax] 0.4 mg PO DAILY 06/14/19 06/26/20 Cholecalciferol [Vitamin D3 (25 2,000 unit PO DAILY 06/26/20 06/26/20 Mcg = 1000 Iu)] Cyanocobalamin (Vitamin B-12) 1,000 mcg PO DAILY 06/26/20 06/26/20 [Vitamin B-12] Diclofenac Sodium [Voltaren] 50 mg PO BID 06/26/20 06/26/20 Multivitamin/Iron/Folic Acid 1 tab PO DAILY 06/26/20 06/26/20 [Centrum Adults Tablet] Previous Rx's Medication Instructions Recorded Omeprazole [PriLOSEC] 20 mg PO BID #60 capsule. 03/27/18 Allergies Allergy/AdvReac Type Severity Reaction Status Date / Time Penicillins AdvReac Unknown Verified 06/26/20 09:10 Childhood Review of Systems ROS Statement: Those systems with pertinent positive or pertinent negative responses have been documented in the HPI. ROS Other: All systems not noted in ROS Statement are negative. Past Medical History Past Medical History: Asthma, COPD, CVA/TIA, GERD/Reflux, Osteoarthritis (OA) Additional Past Medical History / Comment(s): "Hepatitis B after blood transfusion when he had polio at the age of 2 or 3 yrs", pancreatitis ,diverticular dx, chronic sinus problems-takes prednisone small dose daily.pancreatits,tia History of Any Multi-Drug Resistant Organisms: None Reported Past Surgical History: Joint Replacement, Orthopedic Surgery, Tonsillectomy Additional Past Surgical History / Comment(s): Right arthroscopic knee surgery, colonoscopy with benign polypectomy, EGD, sinus surgery, vasectomy,yumiko total knee replacements Past Anesthesia/Blood Transfusion Reactions: No Reported Reaction Additional Past Anesthesia/Blood Transfusion Reaction / Comment(s): Pt received blood when he was a small child. Past Psychological History: No Psychological Hx Reported Smoking Status: Never smoker Past Alcohol Use History: Heavy Past Drug Use History: None Reported - Past Family History Father Family Medical History: COPD Additional Family Medical History / Comment(s): Father was a smoker. He at the age of 74 or 75yrs. Mother Family Medical History: COPD Additional Family Medical History / Comment(s): Mother is living. She is a smoker. She uses oxygen. General Exam - General Exam Comments Initial Comments: GENERAL: Patient is well-developed and well-nourished. Patient is nontoxic and well- hydrated and is in mild distress. ENT: Neck is soft and supple. No significant lymphadenopathy is noted. Oropharynx is clear. Moist mucous membranes. Neck has full range of motion without eliciting any pain. EYES: The sclera were anicteric and conjunctiva were pink and moist. Extraocular movements were intact and pupils were equal round and reactive to light. Eye lids were unremarkable. PULMONARY: Unlabored respirations. Good breath sounds bilaterally. No audible rales rhonchi or wheezing was noted. CARDIOVASCULAR: There is a regular rate and rhythm without any murmurs gallops or rubs. ABDOMEN: Soft and nontender with normal bowel sounds. SKIN: Skin is clear with no lesions or rashes and otherwise unremarkable. NEUROLOGIC: Patient is alert and oriented x3. Cranial nerves II through XII are grossly intact. Patient has 4 out of 5 uptwister tender on the left side compared to the right. Patient states she has normal light touch sensation at this time.. Patient's speech sounds normal good volume however he is unable to express himself. Symmetrical smile. Cerebellar exam grossly intact. MUSCULOSKELETAL: Normal extremities with adequate strength and full range of motion. No lower extremity swelling or edema. No calf tenderness. LYMPHATICS: No significant lymphadenopathy is noted PSYCHIATRIC: Normal psychiatric evaluation. Limitations: no limitations Course Vital Signs 06/26/20 06/26/20 06/26/20 07:36 08:44 09:41 Temperature 97.8 F 97.3 F L Pulse Rate 76 48 L 43 L Respiratory 18 18 18 Rate Blood Pressure 142/93 162/87 170/78 O2 Sat by Pulse 98 100 98 Oximetry Medical Decision Making - Medical Decision Making EKG shows marked bradycardia at 44 bpm SC interval is 164 QRS is 90 QT interval 4:30 QTC is 367. Patient's EKG shows no ST segment elevation or depression. CT shows a right frontal parietal region area of acute or subacute infarct. Compared to old CT it was not there. I spoke with Dr. Pillai he agreed to admit the patient admitted the patient wrote admitting orders. - Lab Data Result diagrams: 06/26/20 08:29 06/26/20 08:29 Lab Results 06/26/20 06/26/20 06/26/20 Range/Units 08:29 08:29 08:29 WBC 7.7 (3.8-10.6) k/uL RBC 5.05 (4.30-5.90) m/uL Hgb 15.6 (13.0-17.5) gm/dL Hct 47.3 (39.0-53.0) % MCV 93.8 (80.0-100.0) fL MCH 30.9 (25.0-35.0) pg MCHC 33.0 (31.0-37.0) g/dL RDW 13.2 (11.5-15.5) % Plt Count 183 (150-450) k/uL MPV 7.7 Neutrophils % 64 % Lymphocytes % 23 % Monocytes % 8 % Eosinophils % 3 % Basophils % 1 % Neutrophils # 4.9 (1.3-7.7) k/uL Lymphocytes # 1.8 (1.0-4.8) k/uL Monocytes # 0.6 (0-1.0) k/uL Eosinophils # 0.2 (0-0.7) k/uL Basophils # 0.0 (0-0.2) k/uL PT 10.7 (9.0-12.0) sec INR 1.0 (<1.2) APTT 22.1 (22.0-30.0) sec Sodium 140 (137-145) mmol/L Potassium 4.0 (3.5-5.1) mmol/L Chloride 110 H (98-107) mmol/L Carbon Dioxide 24 (22-30) mmol/L Anion Gap 6 mmol/L BUN 21 H (9-20) mg/dL Creatinine 1.21 (0.66-1.25) mg/dL Est GFR (CKD-EPI)AfAm 72 (>60 ml/min/1.73 sqM) Est GFR (CKD-EPI)NonAf 62 (>60 ml/min/1.73 sqM) Glucose 115 H (74-99) mg/dL Calcium 9.2 (8.4-10.2) mg/dL Total Bilirubin 0.8 (0.2-1.3) mg/dL AST 31 (17-59) U/L ALT 44 (4-49) U/L Alkaline Phosphatase 74 (38-126) U/L Troponin I (0.000-0.034) ng/mL Total Protein 7.0 (6.3-8.2) g/dL Albumin 4.2 (3.5-5.0) g/dL 06/26/20 Range/Units 08:29 WBC (3.8-10.6) k/uL RBC (4.30-5.90) m/uL Hgb (13.0-17.5) gm/dL Hct (39.0-53.0) % MCV (80.0-100.0) fL MCH (25.0-35.0) pg MCHC (31.0-37.0) g/dL RDW (11.5-15.5) % Plt Count (150-450) k/uL MPV Neutrophils % % Lymphocytes % % Monocytes % % Eosinophils % % Basophils % % Neutrophils # (1.3-7.7) k/uL Lymphocytes # (1.0-4.8) k/uL Monocytes # (0-1.0) k/uL Eosinophils # (0-0.7) k/uL Basophils # (0-0.2) k/uL PT (9.0-12.0) sec INR (<1.2) APTT (22.0-30.0) sec Sodium (137-145) mmol/L Potassium (3.5-5.1) mmol/L Chloride (98-107) mmol/L Carbon Dioxide (22-30) mmol/L Anion Gap mmol/L BUN (9-20) mg/dL Creatinine (0.66-1.25) mg/dL Est GFR (CKD-EPI)AfAm (>60 ml/min/1.73 sqM) Est GFR (CKD-EPI)NonAf (>60 ml/min/1.73 sqM) Glucose (74-99) mg/dL Calcium (8.4-10.2) mg/dL Total Bilirubin (0.2-1.3) mg/dL AST (17-59) U/L ALT (4-49) U/L Alkaline Phosphatase (38-126) U/L Troponin I <0.012 (0.000-0.034) ng/mL Total Protein (6.3-8.2) g/dL Albumin (3.5-5.0) g/dL Disposition Clinical Impression: CVA (cerebral vascular accident) Disposition: ADMITTED IP TO THIS HOSP Is patient prescribed a controlled substance at d/c from ED?: No Referrals: Evelina Hutchison MD [Primary Care Provider] - 1-2 days Time of Disposition: 09:55
[2020-06-26 08:44] LABS: Basophils % (A) 1 %; Eosinophils # (A) 0.2 k/uL (0-0.7); Eosinophils % (A) 3 %; HCT 47.3 % (39.0-53.0); HGB 15.6 gm/dL (13.0-17.5); Lymphocytes # (A) 1.8 k/uL (1.0-4.8); Lymphocytes % (A) 23 %; MCH 30.9 pg (25.0-35.0); MCV 93.8 fL (80.0-100.0); Mean Platelet Volume 7.7; Monocytes # (A) 0.6 k/uL (0-1.0); Monocytes % (A) 8 %; Neutrophils # (A) 4.9 k/uL (1.3-7.7); Neutrophils % (A) 64 %; Platelet Count 183 k/uL (150-450); RBC 5.05 m/uL (4.30-5.90); RDW 13.2 % (11.5-15.5); WBC 7.7 k/uL (3.8-10.6)
[2020-06-26 08:59] LABS: Partial Thromboplastin Time 22.1 sec (22.0-30.0); Prothrombin Time 10.7 sec (9.0-12.0)
[2020-06-26 09:03] LABS: Albumin 4.2 g/dL (3.5-5.0); Calcium 9.2 mg/dL (8.4-10.2); Total Bilirubin 0.8 mg/dL (0.2-1.3)
--- NOTE | 2020-06-26 09:04 | XR ---
EXAMINATION TYPE: XR chest 2V DATE OF EXAM: 06/26/2020 COMPARISON: chest x-ray 06/14/2019 HISTORY: Altered mental status TECHNIQUE: Frontal and lateral views of the chest are obtained. FINDINGS: There is no focal air space opacity, pleural effusion, or pneumothorax seen. The cardiac silhouette size is stable. Aorta is dense. Patient is rotated. The osseous structures are intact. IMPRESSION: No acute cardiopulmonary process.
--- NOTE | 2020-06-26 09:09 | CT ---
EXAMINATION TYPE: CT brain wo con DATE OF EXAM: 06/26/2020 HISTORY: Neuro deficits, possible stroke symptoms CT DLP: 1125.4 mGycm. Automated Exposure Control for Dose Reduction was Utilized. TECHNIQUE: CT scan of the head is performed without contrast. COMPARISON: CT brain June 14, 2019. FINDINGS: There is no acute intracranial hemorrhage or midline shift identified. There is diffuse v entricular and sulcal prominence consistent with diffuse age-related cerebral atrophy. There is low- attenuation in the periventricular white matter consistent with chronic small vessel ischemic change. Persistent anterior metopic suture incidentally noted. The globes are intact and the visualized sin uses are clear . New vague area high right frontal lobe axial image 41 and coronal image 31. IMPRESSION: No acute intracranial hemorrhage or midline shift. There is mild to moderate diffuse ag e-related cerebral atrophy and chronic small vessel ischemic change redemonstrated. No significant i nterval change. Possible evolving acute/subacute infarct high right frontal lobe. Consider MRI to further evaluate.
[2020-06-26] MEDS: ASPIRIN 325 MG TAB PO STA ×2 (11:11→16:36)
--- NOTE | 2020-06-26 13:22 | P.HPIM ---
History of Present Illness This is a pleasant 64 years old male with past medical history of asthma/COPD, CVA/TIA, GERD, osteoarthritis, hepatitis B, diverticular disease, Presents with expressive aphasia and left-sided weakness with loss of coordination of the left hand and arm. It happened yesterday in the morning, he thought it is because he slept on his arm, in the evening it was improving however it was worse this morning . Patient denies weakness in the leg, no blurred vision or slurred speech. No urine or bowel incontinence. No weakness in the lower extremities Patient states that he has these symptoms and an off for a year, he was recently in the hospital last most for similar symptoms, that time CT of the head and CTA of the head and neck were unremarkable. At that time neurologist evaluated the patient and recommended aspirin and Mindy vix and MRI of the brain however patient mental status Deteriorated and patient was transferred to a higher level of care and tertiary care center. He went to [facility], as per at bedside, workup was unremarkable, eventually they did sleep study which was nonconclusive and patient was sent home then Currently patient is on aspirin only at home Vitals stable. Labs are unremarkable including CBC, BMP, liver enzymes, INR and troponin. CT of the brain: Possible evolving stroke acute/subacute and right frontal lobe Chest x-ray: No acute process Echocardiogram last time on 06/14 showed ejection fraction of 60-65%, no other significant abnormality. Patient received aspirin 325 mg 1 time in the emergency room Review of Systems CONSTITUTIONAL: No fever, no malaise, no fatigue. HEENT: No recent visual problems or hearing problems. Denied any sore throat. CARDIOVASCULAR: No orthopnea, PND, no palpitations, no syncope. PULMONARY: No shortness of breath, no cough, no hemoptysis. GASTROINTESTINAL: No diarrhea, no nausea, no vomiting, no abdominal pain. Normoactive bowel sounds. NEUROLOGICAL: No headaches, no weakness, no numbness. HEMATOLOGICAL: Denies any bleeding or petechiae. GENITOURINARY: Denies any burning micturition, frequency, or urgency. MUSCULOSKELETAL/RHEUMATOLOGICAL: Denies any joint pain, swelling, or any muscle pain. ENDOCRINE: Denies any polyuria or polydipsia. Past Medical History Past Medical History: Asthma, COPD, CVA/TIA, GERD/Reflux, Osteoarthritis (OA) Additional Past Medical History / Comment(s): "Hepatitis B after blood transfusion when he had polio at the age of 2 or 3 yrs", pancreatitis ,diverticular dx, chronic sinus problems-takes prednisone small dose daily.pancreatits,tia History of Any Multi-Drug Resistant Organisms: None Reported Past Surgical History: Joint Replacement, Orthopedic Surgery, Tonsillectomy Additional Past Surgical History / Comment(s): Right arthroscopic knee surgery, colonoscopy with benign polypectomy, EGD, sinus surgery, vasectomy,yumiko total knee replacements Past Anesthesia/Blood Transfusion Reactions: No Reported Reaction Additional Past Anesthesia/Blood Transfusion Reaction / Comment(s): Pt received blood when he was a small child. Past Psychological History: No Psychological Hx Reported Smoking Status: Never smoker Past Alcohol Use History: Heavy Past Drug Use History: None Reported - Past Family History Father Family Medical History: COPD Additional Family Medical History / Comment(s): Father was a smoker. He at the age of 74 or 75yrs. Mother Family Medical History: COPD Additional Family Medical History / Comment(s): Mother is living. She is a smoker. She uses oxygen. Medications and Allergies Home Medications Medication Instructions Recorded Confirmed Type Aspirin EC [Ecotrin Low Dose] 81 mg PO DAILY 03/23/18 06/26/20 History Omeprazole [PriLOSEC] 20 mg PO BID #60 capsule. 03/27/18 06/26/20 Rx Folic Acid 0.8 mg PO DAILY 06/14/19 06/26/20 History Sildenafil Citrate [Viagra] 50 mg PO DAILY PRN 06/14/19 06/26/20 History Tamsulosin [Flomax] 0.4 mg PO DAILY 06/14/19 06/26/20 History Cholecalciferol [Vitamin D3 (25 2,000 unit PO DAILY 06/26/20 06/26/20 History Mcg = 1000 Iu)] Cyanocobalamin (Vitamin B-12) 1,000 mcg PO DAILY 06/26/20 06/26/20 History [Vitamin B-12] Diclofenac Sodium [Voltaren] 50 mg PO BID 06/26/20 06/26/20 History Multivitamin/Iron/Folic Acid 1 tab PO DAILY 06/26/20 06/26/20 History [Centrum Adults Tablet] Allergies Allergy/AdvReac Type Severity Reaction Status Date / Time Penicillins AdvReac Unknown Verified 06/26/20 09:10 Childhood Physical Exam Vitals: Vital Signs Temp Pulse Resp BP Pulse Ox 06/26/20 08:44 48 L 18 162/87 100 06/26/20 07:36 97.8 F 76 18 142/93 98 Intake and Output 06/25/20 06/26/20 06/26/20 22:59 06:59 14:59 Other: Weight 90.718 kg -GENERAL: The patient is alert and oriented x3, not in any acute distress. Obese HEENT: Pupils are round and equally reacting to light. EOMI. No scleral icterus. No conjunctival pallor. Normocephalic, atraumatic. No pharyngeal erythema. No thyromegaly. CARDIOVASCULAR: S1 and S2 present. No murmurs, rubs, or gallops. PULMONARY: Chest is clear to auscultation, no wheezing or crackles. ABDOMEN: Soft, nontender, nondistended, normoactive bowel sounds. No palpable organomegaly. MUSCULOSKELETAL: No joint swelling or deformity. EXTREMITIES: No cyanosis, clubbing, or pedal edema. -NEUROLOGICAL: Gross cranial nerves are grossly intact, however patient has expressive aphasia. Left upper extremity is weak. Strength in the upper extremities are 5/5, sensation is intact. Meningeal signs are absent SKIN: No rashes. No petechiae Results CBC & Chem 7: 06/26/20 08:29 06/26/20 08:29 Labs: Abnormal Lab Results - Last 24 Hours (Table) 06/26/20 Range/Units 08:29 Chloride 110 H (98-107) mmol/L BUN 21 H (9-20) mg/dL Glucose 115 H (74-99) mg/dL Assessment and Plan Assessment: Possible acute stroke of the right frontal lobe with expressive aphasia and left upper extremity weakness, clumsiness History of CVA/TIA History of asthma/COPD, not in activation Gastroesophageal reflux disease History of diverticular disease History of hepatitis B infection Osteoarthritis Plan: this is a pleasant 64 years old male was presented with possible stroke of the right frontal lobe. Continue with aspirin. Allow for permissive hypertension, neurology consult . Labs and medication were reviewed.. Continue same treatment. Continue with symptomatic treatment. Resume home medication. Monitor lytes and vitals. DVT and GI prophylaxis. Further recommendations depends on the clinical course of the patient DVT prophylaxis: Subcutaneous heparin GI Prophylaxis: Pepcid PT/OT: Pending Prognosis is guarded
--- NOTE | 2020-06-26 16:00 | P.CNNES ---
History of Present Illness Consult date: 06/26/20 Requesting physician: Florentin Florez Reason for Consult: CVA History of Present Illness: Patient is a 64-year-old right-handed male, came to the hospital today at 7:29 AM for possible TIA. Patient has similar symptoms over the last year on and off. Patient's daughter was present, who mainly provided with a history. Patient appears alert, awake, pleasant, but frequently repeats "I'm confused, I don't know". Patient's daughter states that yesterday morning patient started complaining of some left-sided numbness and weakness, and speech difficulty with confusion, but was not too bad. By the evening the symptoms went away and at night he was fine. He went to sleep. This morning he woke up at 6 AM as symptoms were worse. He was having numbness and weakness of the left side, was more confused not able to articulate. Couldn't get his thoughts out, therefore she brought him to the hospital. Patient at present complains of mild headache rates 5/10. Vital signs on arrival was blood pressure 142/93, pulse rate 76, temperature 97.8. CT head showed no acute intracranial hemorrhage or midline shift. Mild to moderate diffuse age-related cerebral atrophy and chronic small vessel ischemic change redemonstrated. Possible evolving acute/subacute infarct high right frontal lobe. Consider MRI to further evaluate. EKG shows marked sinus bradycardia with heart rate of 44. Chest x-ray showed no acute cardiopulmonary process. Patient had a normal CTA of head and neck on 06/14/2019. Patient had a 2-D echo also performed on 06/14/2019 which revealed EF 60-65%. Left atrium is mildly dilated, interatrial and interventricular septum intact. Patient had a negative PORFIRIO, cardiolipin antibodies, Lyme titer on 05/27/2017. B12 was borderline to 66 on 05/27/2017 with RBC folate normal firing 15. TSH normal. Hemoglobin A1c 5.5, cholesterol 141 LDL 78, HDL 53 and triglycerides 52. Patient was previously seen by Dr. Burr on 06/14/2019 for slurred speech and difficulty following commands, and some left-sided weakness. Patient had another admission 02/04/2017 for episode periodic transient left arm and facial numbness associated with some taste disturbance and visual distortion lasting for 30 minutes. Patient had an MRI of the brain at that time which was normal. Patient currently takes aspirin 81 mg daily and is compliant with the medication, as per her daughter's statement. Patient's daughter states that he had a similar episode on 05/29/2020 when he was hospitalized to [facility] where he underwent an MRI of the brain, carotid Doppler and everything was normal. He had another episode 3-4 months prior, but was not very significant. Patient does get some headache after each incident. He denies any previous history of migraines. No family history of migraines. Patient does not smoke, never smoked, does not drink alcohol, no blood pressure diabetes. He does take vitamin D, vitamin E, calcium and B12. He does not drink excessive caffeine, or soda pops, although sometimes drinks 12 pounds can of Mountain Dew. Review of Systems Denies any chest pain shortness of breath wheezing or cough, denies double vision or loss of vision, hearing loss, hoarseness or throat or dysphagia. Past Medical History Past Medical History: Asthma, COPD, CVA/TIA, GERD/Reflux, Osteoarthritis (OA) Additional Past Medical History / Comment(s): "Hepatitis B after blood transfusion when he had polio at the age of 2 or 3 yrs", pancreatitis ,diverticular dx, chronic sinus problems-takes prednisone small dose daily.pancreatits,tia History of Any Multi-Drug Resistant Organisms: None Reported Past Surgical History: Joint Replacement, Orthopedic Surgery, Tonsillectomy Additional Past Surgical History / Comment(s): Right arthroscopic knee surgery, colonoscopy with benign polypectomy, EGD, sinus surgery, vasectomy,yumiko total knee replacements Past Anesthesia/Blood Transfusion Reactions: No Reported Reaction Additional Past Anesthesia/Blood Transfusion Reaction / Comment(s): Pt received blood when he was a small child. Past Psychological History: No Psychological Hx Reported Smoking Status: Never smoker Past Alcohol Use History: Heavy Past Drug Use History: None Reported - Past Family History Father Family Medical History: COPD Additional Family Medical History / Comment(s): Father was a smoker. He at the age of 74 or 75yrs. Mother Family Medical History: COPD Additional Family Medical History / Comment(s): Mother is living. She is a smoker. She uses oxygen. Medications and Allergies Home Medications Medication Instructions Recorded Confirmed Type Aspirin EC [Ecotrin Low Dose] 81 mg PO DAILY 03/23/18 06/26/20 History Omeprazole [PriLOSEC] 20 mg PO BID #60 capsule. 03/27/18 06/26/20 Rx Folic Acid 0.8 mg PO DAILY 06/14/19 06/26/20 History Sildenafil Citrate [Viagra] 50 mg PO DAILY PRN 06/14/19 06/26/20 History Tamsulosin [Flomax] 0.4 mg PO DAILY 06/14/19 06/26/20 History Cholecalciferol [Vitamin D3 (25 2,000 unit PO DAILY 06/26/20 06/26/20 History Mcg = 1000 Iu)] Cyanocobalamin (Vitamin B-12) 1,000 mcg PO DAILY 06/26/20 06/26/20 History [Vitamin B-12] Diclofenac Sodium [Voltaren] 50 mg PO BID 06/26/20 06/26/20 History Multivitamin/Iron/Folic Acid 1 tab PO DAILY 06/26/20 06/26/20 History [Centrum Adults Tablet] Allergies Allergy/AdvReac Type Severity Reaction Status Date / Time Penicillins AdvReac Unknown Verified 06/26/20 09:10 Childhood Physical Examination - Vital Signs Vital Signs: Vital Signs Temp Pulse Resp BP Pulse Ox 06/26/20 11:00 44 L 18 157/82 100 06/26/20 09:41 97.3 F L 43 L 18 170/78 98 06/26/20 08:44 48 L 18 162/87 100 06/26/20 07:36 97.8 F 76 18 142/93 98 Intake and Output 06/25/20 06/26/20 06/26/20 22:59 06:59 14:59 Other: Weight 90.718 kg On examination patient is an elderly male, very pleasant in no acute distress. He is alert and awake. Patient has somewhat slight dysphasia, as he has slight difficulty with following commands, takes extra time and sometimes perseverates. Patient can name and repeat very well. He sometimes perseverates on certain actions. He repeats on certain words and phrases at times. As an example, after I checked cerebellar functions with [id number] testing, and I was checking for visual yin, patient would touch that hand to the nose, ra ther than just saying right or left, or pointing to the ipsilateral side. On cranial nerve examination pupils are round and reacting to light, visual yin are full, extraocular muscles are intact with no nystagmus. Face is symmetric, tongue protrudes to the midline. Palatal elevation and sensation normal. Hearing and shoulder shrug normal. Facial sensation normal. On muscle strength testing patient has mild left pronation but no drift. The strength appears normal in arms and legs distally and proximally. Deep tendon reflexes are 1+ to 2+ all over and plantars are downgoing. Sensory to touch is equal with no neglect. No ataxia for [id number] or [id number] testing bilaterally tone and bulk of muscles normal. Gait deferred. There is no carotid bruit, S1 and S2 audible, abdomen soft nontender, chest is clear. Peripheral pulses present. No edema. Results - Laboratory Findings CBC and BMP: 06/26/20 08:29 06/26/20 08:29 Abnormal Lab Findings: Abnormal Labs 06/26/20 08:29 Chloride 110 H BUN 21 H Glucose 115 H Assessment and Plan Assessment: * Recurrent episodes of speech difficulty with mild left-sided symptomatology off and on for a few years. Uncertain if represents TIA, or complex migraines. Patient had multiple MRI of the brain, CTA, carotid Doppler which all have been normal. Current examination is nonfocal except for mild speech hesitancy, slightly impaired/slow comprehension. * Borderline blood pressure with no history of hypertension * Lipids are well controlled, patient non-diabetic, non-smoker. Plan: * Patient has been taking aspirin 81 mg daily. For these recurrent symptoms, we will switch from aspirin to Plavix 75 mg daily. * Start verapamil 40 mg 3 times a day, as blood pressures are slightly on the higher end, and symptoms could be related to complex migraines. * We will check B12 and lipid panel. * Obtain records from [facility] related to admission from 05/29/2020.
[2020-06-26] MEDS: CLOPIDOGREL 75 MG TAB PO SCH (16:36)
[2020-06-26] MEDS: VERAPAMIL 40 MG TAB PO SCH ×2 (17:43→20:41)
[2020-06-26] MEDS: HEPARIN SODIUM,PORCINE 5,000 UNIT/ML 1 ML VIAL SQ SCH (20:41)
[2020-06-26] MEDS: FAMOTIDINE 20 MG/2 ML VIAL IV SCH (20:41)
[2020-06-27 02:20] LABS: Folate, Serum >24.0 ng/mL
[2020-06-27] MEDS: TAMSULOSIN 0.4 MG CAP.ER.24H PO SCH (08:42)
[2020-06-27] MEDS: FAMOTIDINE 20 MG/2 ML VIAL IV SCH (08:42)
[2020-06-27] MEDS: HEPARIN SODIUM,PORCINE 5,000 UNIT/ML 1 ML VIAL SQ SCH ×2 (08:42→20:18)
[2020-06-27] MEDS: CLOPIDOGREL 75 MG TAB PO SCH (08:42)
[2020-06-27] MEDS: VERAPAMIL 40 MG TAB PO SCH (08:42)
[2020-06-27] MEDS ORDERED: ASPIRIN 325 MG TAB PO SCH (09:00)
[2020-06-27 09:22] LABS: Cholesterol 193 mg/dL (<200); HDL Cholesterol 58 mg/dL (40-60); LDL Cholesterol,Calculated 119 mg/dL (0-99); Triglycerides 79 mg/dL (<150)
[2020-06-27 11:17] LABS: Glucose,Whole Blood 91 mg/dL (75-99)
[2020-06-27] MEDS ORDERED: ACETAMINOPHEN TAB 325 MG TAB PO PRN (12:37)
--- NOTE | 2020-06-27 12:37 | P.PN ---
Subjective 64-year-old male was admitted for Possible TIA or strokelike symptoms with weakness on the left side of the body and a speech abnormality. Patient has this expressive aphasia for long time and patient was extensively evaluated in the past with multiple carotid Dopplers his CT scans and MRIs in the past. Patient had similar symptoms again today. Patient is going for another MRI. Neurology validate the patient did believe patient may have obligated migraine and patient was started on verapamil unfortunately patient started having bradycardia because of these were abnormal will discuss with neurology regarding changing it to alternate medications for migraine.by the time I evaluated the patient patient's symptoms resolved. Constitutional: Denied any fatigue denied any fever. Cardio vascular: denied any chest pain, palpitations Gastrointestinal denied any nausea vomiting Pulmonary: Denied any shortness of breath cough Neurologic as mentioned in HPI All inpatient medications were reviewed and appropriate changes in these medications as dictated in the interval history and assessment and plan. Objective - Vital Signs Vital signs: Vital Signs Temp 97.9 F 06/27/20 11:42 Pulse 53 L 06/27/20 11:42 Resp 18 06/27/20 11:42 BP 152/69 06/27/20 11:42 Pulse Ox 98 06/27/20 11:42 Intake & Output 06/26/20 06/27/20 06/27/20 18:59 06:59 18:59 Intake Total 1350 Balance 1350 Weight 90.718 kg 90.1 kg Intake: Oral 1350 Other: Voiding Method Toilet # Voids 2 - Exam PHYSICAL EXAMINATION: GENERAL: The patient is alert and oriented x3, not in any acute distress. Well developed, well nourished. HEENT: Pupils are round and equally reacting to light. EOMI. No scleral icterus. No conjunctival pallor. Normocephalic, atraumatic. No pharyngeal erythema. No thyromegaly. CARDIOVASCULAR: S1 and S2 present. No murmurs, rubs, or gallops. PULMONARY: Chest is clear to auscultation, no wheezing or crackles. ABDOMEN: Soft, nontender, nondistended, normoactive bowel sounds. No palpable organomegaly. MUSCULOSKELETAL: No joint swelling or deformity. EXTREMITIES: No cyanosis, clubbing, or pedal edema. NEUROLOGICAL: Gross neurological examination did not reveal any focal deficits. SKIN: No rashes. - Labs CBC & Chem 7: 06/26/20 08:29 06/26/20 08:29 Labs: Abnormal Lab Results - Last 24 Hours (Table) 06/26/20 06/27/20 Range/Units 08:29 08:29 LDL Cholesterol, Calc 119 H (0-99) mg/dL Vitamin B12 1005.0 H (200.0-944.0) pg/mL Assessment and Plan Plan: -speech abnormality multiple episodes along with the possible weakness in the left side of the body.: Patient had the imaging studies in the pastwe did unsure whether patient has a stroke but the patient may have compensated migraine. Patient was started on verapamil left which she is a heart rate went down because of which patient will be started on Depakote discussed with neurologist. Patient will undergo MRI today if MRI is normal patient probably will be discharged tomorrow on Depakote. Patient is already in February antiplatelet therapy and a statin which will be continued History of CVA/TIA History of asthma/COPD, not in activation Gastroesophageal reflux disease History of diverticular disease History of hepatitis B infection Osteoarthritis
[2020-06-27] MEDS ORDERED: DIVALPROEX 250 MG TABLET.DR PO SCH (12:45)
[2020-06-27] MEDS ORDERED: DIVALPROEX ER 250 MG TAB.ER.24H PO SCH (12:45)
--- NOTE | 2020-06-27 12:47 | MR ---
MR brain without contrast HISTORY: Neuro deficit, cerebrovascular accident Multiplanar multisequence imaging through the brain Correlation to CT brain 06/26/2020 There is restricted diffusion present in the right frontal and parietal lobes, some small scattered a reas of hyperintensity are present to correspond to the restricted diffusion on inversion recovery an d T2-weighted sequences at the cerebral cortex. There is no hemorrhage or hydrocephalus. Scattered an d confluent hyperintensities also present in the periventricular and deep white matter, approximately 30 lesions are present. There are normal vascular flow voids. Cortical atrophy is present. The corpu s callosum, pituitary, cervical medullary junction, cerebellopontine angles are normal. The orbits sh ow symmetric appearance. Mild mucosal disease noted in the maxillary sinuses and ethmoid air cells IMPRESSION: Subacute infarcts, correlate for embolic disease. Age-related changes of atrophy and chronic specialist sangita small vessel ischemia.
--- NOTE | 2020-06-27 13:29 | P.PN ---
Subjective Progress Note Date: 06/27/20 Patient was seen for a follow-up earlier at around 9:45 AM. Patient was asleep at that time. Woke him up, patient states was doing better. Patient states still having "difficulty talking", states it is "hard to explain". Still little headache and complains of prickly sensation in the left arm from hand up to the shoulder. Objective - Vital Signs Vital signs: Vital Signs Temp 97.9 F 06/27/20 11:42 Pulse 53 L 06/27/20 11:42 Resp 18 06/27/20 11:42 BP 152/69 06/27/20 11:42 Pulse Ox 98 06/27/20 11:42 Intake & Output 06/26/20 06/27/20 06/27/20 18:59 06:59 18:59 Intake Total 1350 Balance 1350 Weight 90.718 kg 90.1 kg Intake: Oral 1350 Other: Voiding Method Toilet # Voids 2 - Exam On examination patient is much more alert and awake, slightly odd affect. Appears anxious. Speech is much more fluent, with no aphasia, still some hesitancy at times. Patient able to name all objects. Can repeat. On cranial nerve examination pupils are round and reacting to light, visual yin are full, extraocular muscles are intact with no nystagmus. Face is symmetric, tongue protrudes to the midline. Palatal elevation and sensation normal hearing and shoulder shrug normal. On muscle state testing there is mild left pronation but no drift. The strength is completely normal. Sensory touch is equal with no neglect. Mild ataxia for [id number] testing. Tone and bulk of muscles normal. Gait deferred. - Labs CBC & Chem 7: 06/26/20 08:29 06/26/20 08:29 Labs: Abnormal Lab Results - Last 24 Hours (Table) 06/26/20 06/27/20 Range/Units 08:29 08:29 LDL Cholesterol, Calc 119 H (0-99) mg/dL Vitamin B12 1005.0 H (200.0-944.0) pg/mL Assessment and Plan Assessment: * Recurrent episodes of speech difficulty with mild left-sided symptomatology off and on for a few years. Uncertain if represents TIA/CVA, or complex migraines. Patient had multiple MRI of the brain, CTA, carotid Doppler which all have been normal. Current examination is nonfocal except for mild speech hesitancy, slightly impaired/slow comprehension. * Borderline blood pressure with no history of hypertension * Lipids are well controlled, patient non-diabetic, non-smoker. Plan: * Continue Plavix 75 mg daily. (Previously on aspirin 81 mg daily) * Continue verapamil 40 mg 3 times a day, as blood pressures are slightly on the higher end, and symptoms could be related to complex migraines. * B12 1005, folate > 24. * Telemetry monitoring showing sinus rhythm, sinus bradycardia with PVCs. * Lipid panel with cholesterol 193, LDL 119, HDL 58 and triglycerides 79. Start Lipitor 40 mg daily. * Obtain records from [facility] related to admission from 05/29/2020. Addendum: Stroke code activated at 11:15 AM. Per nurse report, patient was standing by the door, confused, not able to answer questions. His left arm was flaccid at that time. Patient not able to express. I came to evaluate the patient right away. Patient was having significant expressive difficulty. Able to name some objects (knuckles), but not others like earlobe. Visual yin reveal left sided neglect. Patient has mild left facial asymmetry. Patient has left pronator drift. The strength appeared fairly normal however. The strength is normal in the legs. No drift of the left leg. Patient appears ataxic on the left arm. Denies stroke scale was 11. Patient was not a candidate for TPA, as he had abnormal computed tomography scan of head from yesterday suggestive of a subacute stroke, and symptoms have been present since yesterday. Stat MRI of the brain was performed, which revealed acute to subacute infarcts in the right frontal and parietal lobes and some small scattered areas in the right MCA territory, correlate for embolic disease. Patient already on Plavix 75 mg daily since yesterday. Patient had received aspirin 325 mg yesterday. We will continue aspirin 325 mg. Telemetry monitoring shows bradycardia, therefore we will stop verapamil. Stat CTA of head and neck. Cardiology consultation to evaluate for cardioembolic source. Patient probably will need SOREN. We will obtain records from [facility] fr om 05/29/2020 admission. 5:30 PM: Patient underwent CTA of head and neck, which revealed intracranial vascular system is patent with no evidence of aneurysm. No significant carotid bifurcation stenosis. Approximately 25-30% stenosis involving the proximal right ICA. Vertebrobasilar system intact. Patient underwent SOREN today urgently, which revealed no evidence of cardiac source of embolization. Intra-atrial septum intact. Intact left atrial appendage. Normal intracardiac valves. Normal left ventricular dimension and systolic function. Normal cardiac chamber sizes. Also reviewed outside records from [facility] from date of admission 06/15/2019 to 06/17/2019. Patient was transferred from [facility] (seen by Dr Burr) to [facility] in that admission. While in the hospital, patient had stroke code activated on 06/16/2019 for new onset left upper extremity paresthesias and mild left facial droop with right-sided headache. MRI of the brain 06/15/2019 showed chronic changes in the periventricular and deep white matter. No acute stroke. 2-D echo with bubble study on 06/16/2019 was negative. Patient was discharged with diagnoses of acute TIA 2, rule out CVA, migraine headache. Patient was discharged on aspirin 81 mg and Plavix 75 mg daily. Patient's significant other states that he never took Plavix after discharge, as all workup was negative. He stayed on aspirin 81 mg. Patient subsequently had a 24 hours EEG on 07/31/2019 which was normal. I reexamined the patient. Patient has much improved. Patient's speech has improved. Patient able to name, repeat without difficulty. Less hesitancy. Less left pronator drift. Visual iyn improved. Continue full aspirin and Plavix 75 mg, Lipitor 40 mg. Spoke to patient's significant other and informed the details. She further told me that patient was never hospitalized in May 2020, he did have similar symptoms but they were mild, did not seek medical attention. Time with Patient: Greater than 30 (Spent 1 hour including a stroke code, and coordinating care.)
[2020-06-27] MEDS: ASPIRIN 325 MG TAB PO SCH (14:01)
[2020-06-27] MEDS: ATORVASTATIN 40 MG TAB PO SCH (14:01)
[2020-06-27] MEDS ORDERED: SODIUM CHLORIDE 0.9% 250 ML IV ONE (14:38)
[2020-06-27] MEDS ORDERED: MIDAZOLAM 2 MG/2 ML VIAL IV ONE (14:42)
[2020-06-27] MEDS ORDERED: fentaNYL (PF) 50 MCG/ML 2 ML AMP IV ONE (14:42)
[2020-06-27] MEDS ORDERED: BENZOCAINE SPRAY 1 CAN MUCOUS MEM ONE (14:43)
[2020-06-27] MEDS ORDERED: MIDAZOLAM 2 MG/2 ML VIAL IVP ONE (14:45)
--- NOTE | 2020-06-27 14:49 | CT ---
EXAMINATION TYPE: CT angio head neck DATE OF EXAM: 06/27/2020 HISTORY: acute stroke COMPARISON: 06/14/2019, 06/26/2020 CT DLP: 486.8 mGycm. Automated Exposure Control for Dose Reduction was Utilized. TECHNIQUE: CTA scan of the neck is performed with IV Contrast, patient injected with 65 mL of Isovue 370, axial images are obtained, coronal and sagittal reformatted images are reviewed. Three-D recons tructed images are created on an independent workstation and reviewed. FINDINGS: There is no acute intracranial hemorrhage or midline shift identified degenerative change of the spin e. Mild periventricular low attenuation is nonspecific but most typical remote microvascular ischemia . The intracranial vascular structures appear to enhance normally. Vertebral basilar system is patent. Anterior cerebral and middle cerebral arteries enhance normally. No sizable aneurysm or vascular malf ormation. The carotid bifurcations demonstrate no significant hemodynamic stenosis. Approximately 25-30% stenos is involving the proximal right ICA. Visualized subclavian arteries are patent. The visualized common carotid arteries appear to be patent. Vertebral basilar system is patent. Changes of chronic sinusitis incidentally noted. Degenerative changes of the spine are noted. IMPRESSION: 1. Intracranial vascular system is patent with no evidence of aneurysm. 2. No significant carotid bifurcation stenosis.
--- NOTE | 2020-06-27 16:13 | ECHOT ---
TRANSESOPHAGEAL ECHOCARDIOGRAM DATE OF SERVICE: June 27, 2020 PERFORMING PHYSICIAN: Sushant Dillon MD. PROCEDURE PERFORMED: Transesophageal echocardiogram. INDICATION: Stroke. COMPLICATION: None. LEVEL OF SEDATION: Moderate with sedation length about 10 minutes. PROCEDURE DESCRIPTION: After obtaining an informed consent, explaining the procedure, benefits, risks, complications and alternatives, the patient was brought to the transesophageal echocardiogram suite. A pulse oximetry and heart rate monitors were attached to the patient prior to the procedure. The patient's throat was sprayed using lidocaine locally. Following that, the patient was turned into left lateral position. A bite guard was placed and the patient was then sedated with the above doses of Versed and fentanyl in divided doses. Following that, the transesophageal echocardiogram probe was advanced through the bite guard into the mid esophagus where 2-D echocardiogram images as well as color Doppler images of various cardiac structures were obtained. We evaluated the interatrial septum using 2-D echocardiogram, color Doppler, and contrast study. The procedure was completed. There were no complications. FINDINGS: The left ventricular dimension and systolic function appeared to be normal. The ejection fraction appeared to be in the range of 50%. Right ventricle appeared to be of normal size and function. The left atrium appeared to be normal. The left atrial appendage appeared to be free from any thrombus. The interatrial septum appeared to be intact. The aortic valve is trileaflet valve without stenosis or regurgitation. The mitral valve seems to normal with mild MR. Normal tricuspid valve and pulmonic valve. CONCLUSION: 1. No evidence of cardiac source of embolization. 2. Intact interatrial septum. 3. Intact left atrial appendage. 4. Normal intracardiac valves. 5. Normal left ventricular dimension and systolic function. 6. Normal cardiac chamber sizes. MMODL / IJN: [id number] /
[2020-06-27] MEDS: FAMOTIDINE 20 MG TAB PO SCH (20:18)
[2020-06-28 04:52] LABS: Glucose,Whole Blood 116 mg/dL (75-99)
--- NOTE | 2020-06-28 05:44 | CT ---
EXAM: CT Head Without Intravenous Contrast CLINICAL HISTORY: ITS.REASON CT Reason: CODE STROKE TECHNIQUE: Axial computed tomography images of the head/brain without intravenous contrast. CTDI is 49.27 mGy and DLP is 1070.4 mGy-cm. This CT exam was performed using one or more of the following dose reduction techniques: automated exposure control, adjustment of the mA and/or kV according to patient size, and/or use of iterative reconstruction technique. COMPARISON: 06/27/2020 FINDINGS: Brain: No hemorrhage or mass effect. Chronic microvascular ischemic changes. Evolving infarct in the right precentral gyrus. Ventricles: No hydrocephalus. Bones/joints: Unremarkable. Soft tissues: Unremarkable. Sinuses: Unremarkable. Mastoid air cells: Clear. IMPRESSION: No acute hemorrhage, hydrocephalus, or mass effect. Evolving infarct in the right precentral gyrus.
--- NOTE | 2020-06-28 06:26 | CT ---
EXAM: CT Angiography Head With Intravenous Contrast CLINICAL HISTORY: ITS.REASON CT Reason: CODE STROKE TECHNIQUE: Axial computed tomographic angiography images of the head with intravenous contrast. CTDI is 17.97 mGy and DLP is 587.9 mGy-cm. This CT exam was performed using one or more of the following dose reduction techniques: automated exposure control, adjustment of the mA and/or kV according to patient size, and/or use of iterative reconstruction technique. MIP reconstructed images were created and reviewed. COMPARISON: 06/27/2020 IMPRESSION: No acute occlusion, severe stenosis, or aneurysm. EXAM: CT Angiography Neck With Intravenous Contrast CLINICAL HISTORY: ITS.REASON CT Reason: CODE STROKE TECHNIQUE: Axial computed tomographic angiography images of the neck with intravenous contrast. CTDI is 17.97 mGy and DLP is 587.9 mGy-cm. This CT exam was performed using one or more of the following dose reduction techniques: automated exposure control, adjustment of the mA and/or kV according to patient size, and/or use of iterative reconstruction technique. MIP reconstructed images were created and reviewed. COMPARISON: 06/27/2020 IMPRESSION: Mild right proximal ICA stenosis from atherosclerosis. Overall unchanged since 06/27/2020.
[2020-06-28 08:31] LABS: Basophils % (A) 0 %; Eosinophils % (A) 0 %; HCT 47.5 % (39.0-53.0); HGB 15.9 gm/dL (13.0-17.5); Lymphocytes # (A) 1.2 k/uL (1.0-4.8); Lymphocytes % (A) 8 %; MCH 31.3 pg (25.0-35.0); MCHC 33.4 g/dL (31.0-37.0); MCV 93.6 fL (80.0-100.0); Mean Platelet Volume 7.6; Monocytes # (A) 0.5 k/uL (0-1.0); Monocytes % (A) 4 %; Neutrophils # (A) 12.6 k/uL (1.3-7.7); Neutrophils % (A) 87 %; Platelet Count 221 k/uL (150-450); RBC 5.08 m/uL (4.30-5.90); RDW 13.1 % (11.5-15.5); WBC 14.5 k/uL (3.8-10.6)
[2020-06-28 08:57] LABS: Calcium 9.6 mg/dL (8.4-10.2); Potassium 4.5 mmol/L (3.5-5.1)
[2020-06-28] MEDS: ATORVASTATIN 40 MG TAB PO SCH (10:12)
[2020-06-28] MEDS: FAMOTIDINE 20 MG TAB PO SCH ×2 (10:12→21:29)
[2020-06-28] MEDS: HEPARIN SODIUM,PORCINE 5,000 UNIT/ML 1 ML VIAL SQ SCH (10:12)
[2020-06-28] MEDS: ASPIRIN 325 MG TAB PO SCH (10:12)
[2020-06-28] MEDS: CLOPIDOGREL 75 MG TAB PO SCH (10:12)
[2020-06-28] MEDS: TAMSULOSIN 0.4 MG CAP.ER.24H PO SCH (10:12)
[2020-06-28 12:23] LABS: Appearance,Urine Clear (Clear); Bacteria,Urine Rare /hpf; Bilirubin,Urine Negative (Negative); Blood,Urine Moderate (Negative); Color,Urine Yellow; Glucose,Urine (UA) Negative (Negative); Ketones,Urine 2+ (Negative); Leukocyte Esterase,Urine Small (Negative); Mucus,Urine Rare /hpf; Nitrite,Urine Negative (Negative); PH, Urine 6.5 (5.0-8.0); Protein,Urine Trace (Negative); RBC,Urine 138 /hpf (0-5); Urobilinogen,Urine <2.0 mg/dL (<2.0); WBC,Urine 31 /hpf (0-5)
[2020-06-28 12:49] LABS: Specific Gravity,Urine >1.050 (1.001-1.035)
--- NOTE | 2020-06-28 13:24 | P.PN ---
Subjective 64-year-old male was admitted for Possible TIA or strokelike symptoms with weakness on the left side of the body and a speech abnormality. Patient has this expressive aphasia for long time and patient was extensively evaluated in the past with multiple carotid Dopplers his CT scans and MRIs in the past. Patient had similar symptoms again today. Patient is going for another MRI. Neurology validate the patient did believe patient may have obligated migraine and patient was started on verapamil unfortunately patient started having bradycardia because of these were abnormal will discuss with neurology regarding changing it to alternate medications for migraine.by the time I evaluated the patient patient's symptoms resolved. 06/28/2020 Course stroke was called again and patient was lethargic confused and repeat CAT scan and the CT angios were obtainedeach were within normal limits.since esophageal echocardiogram did not show any significant abnormality.his cousin neurology regarding the need for actual anticoagulation considering multiple episodes of stroke and possible embolic phenomenon although source of emboli is not clear Constitutional: Denied any fatigue denied any fever. Cardio vascular: denied any chest pain, palpitations Gastrointestinal denied any nausea vomiting Pulmonary: Denied any shortness of breath cough Neurologic as mentioned in HPI All inpatient medications were reviewed and appropriate changes in these medications as dictated in the interval history and assessment and plan. Objective - Vital Signs Vital signs: Vital Signs Temp 99.4 F 06/28/20 08:00 Pulse 57 L 06/28/20 08:00 Resp 18 06/28/20 08:00 BP 156/71 06/28/20 08:00 Pulse Ox 99 06/28/20 08:00 Intake & Output 06/27/20 06/28/20 06/28/20 18:59 06:59 18:59 Intake Total 300 450 Output Total 650 600 Balance -350 450 -600 Weight 89 kg Intake: IV 100 Oral 200 450 Output: Urine 650 600 Other: Voiding Method Toilet # Voids 1 - Exam PHYSICAL EXAMINATION: GENERAL: The patient is alert and oriented x3, not in any acute distress. Well developed, well nourished. HEENT: Pupils are round and equally reacting to light. EOMI. No scleral icterus. No conjunctival pallor. Normocephalic, atraumatic. No pharyngeal erythema. No thyromegaly. CARDIOVASCULAR: S1 and S2 present. No murmurs, rubs, or gallops. PULMONARY: Chest is clear to auscultation, no wheezing or crackles. ABDOMEN: Soft, nontender, nondistended, normoactive bowel sounds. No palpable organomegaly. MUSCULOSKELETAL: No joint swelling or deformity. EXTREMITIES: No cyanosis, clubbing, or pedal edema. NEUROLOGICAL: Gross neurological examination did not reveal any focal deficits. SKIN: No rashes. - Labs CBC & Chem 7: 06/28/20 07:44 06/28/20 07:44 Labs: Abnormal Lab Results - Last 24 Hours (Table) 06/28/20 06/28/20 06/28/20 Range/Units 04:50 07:44 07:44 WBC 14.5 H (3.8-10.6) k/uL Neutrophils # 12.6 H (1.3-7.7) k/uL Glucose 121 H (74-99) mg/dL POC Glucose (mg/dL) 116 H (75-99) mg/dL Ur Specific [place] (1.001-1.035) Urine Protein (Negative) Urine Ketones (Negative) Urine Blood (Negative) Ur Leukocyte Esterase (Negative) Urine RBC (0-5) /hpf Urine WBC (0-5) /hpf Urine Bacteria (None) /hpf Urine Mucus (None) /hpf 06/28/20 Range/Units 11:26 WBC (3.8-10.6) k/uL Neutrophils # (1.3-7.7) k/uL Glucose (74-99) mg/dL POC Glucose (mg/dL) (75-99) mg/dL Ur Specific [place] >1.050 H (1.001-1.035) Urine Protein Trace H (Negative) Urine Ketones 2+ H (Negative) Urine Blood Moderate H (Negative) Ur Leukocyte Esterase Small H (Negative) Urine RBC 138 H (0-5) /hpf Urine WBC 31 H (0-5) /hpf Urine Bacteria Rare H (None) /hpf Urine Mucus Rare H (None) /hpf Assessment and Plan Plan: 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 Believed to be embolic although embolic source is not clear at similar episodes again today. We will discuss with neurology probably will need to restart him at a coagulation. No evidence of atrial fibrillation -speech abnormality multiple episodes along with the possible weakness in the left side of the body. History of CVA/TIA History of asthma/COPD, not in activation Gastroesophageal reflux disease History of diverticular disease History of hepatitis B infection Osteoarthritis
[2020-06-28] MEDS ORDERED: HEPARIN SODIUM,PORCINE 5,000 UNIT/ML 1 ML VIAL IV PRN (17:01)
[2020-06-28] MEDS ORDERED: HEPARIN SODIUM,PORCINE 5,000 UNIT/ML 1 ML VIAL IV ONE (17:01)
[2020-06-28] MEDS: HEPARIN SOD,PORK IN 0.45% NACL 25,000 UNIT in 0.45% NACL 1 250ML.BAG IV SCH (17:41)
[2020-06-28 19:30] LABS: INR 1.1 (<1.2); Partial Thromboplastin Time 35.2 sec (22.0-30.0)
[2020-06-29 07:40] LABS: Basophils % (A) 1 %; Eosinophils # (A) 0.1 k/uL (0-0.7); Eosinophils % (A) 1 %; HCT 51.9 % (39.0-53.0); Lymphocytes % (A) 21 %; MCH 30.9 pg (25.0-35.0); MCHC 32.9 g/dL (31.0-37.0); MCV 94.2 fL (80.0-100.0); Mean Platelet Volume 7.9; Monocytes # (A) 0.8 k/uL (0-1.0); Monocytes % (A) 8 %; Neutrophils # (A) 6.7 k/uL (1.3-7.7); Neutrophils % (A) 68 %; Platelet Count 205 k/uL (150-450); RBC 5.51 m/uL (4.30-5.90); RDW 13.2 % (11.5-15.5); WBC 9.8 k/uL (3.8-10.6)
[2020-06-29] MEDS: TAMSULOSIN 0.4 MG CAP.ER.24H PO SCH (08:35)
[2020-06-29] MEDS: FAMOTIDINE 20 MG TAB PO SCH ×2 (08:35→20:34)
[2020-06-29] MEDS: ATORVASTATIN 40 MG TAB PO SCH (08:35)
[2020-06-29] MEDS: CLOPIDOGREL 75 MG TAB PO SCH (08:35)
[2020-06-29] MEDS: ASPIRIN 81 MG PO SCH (08:35)
--- NOTE | 2020-06-29 13:01 | P.PN ---
Subjective 64-year-old male was admitted for Possible TIA or strokelike symptoms with weakness on the left side of the body and a speech abnormality. Patient has this expressive aphasia for long time and patient was extensively evaluated in the past with multiple carotid Dopplers his CT scans and MRIs in the past. Patient had similar symptoms again today. Patient is going for another MRI. Neurology validate the patient did believe patient may have obligated migraine and patient was started on verapamil unfortunately patient started having bradycardia because of these were abnormal will discuss with neurology regarding changing it to alternate medications for migraine.by the time I evaluated the patient patient's symptoms resolved. 06/28/2020 Course stroke was called again and patient was lethargic confused and repeat CAT scan and the CT angios were obtained which were within normal limits.since esophageal echocardiogram did not show any significant abnormality.his cousin neurology regarding the need for actual anticoagulation considering multiple episodes of stroke and possible embolic phenomenon although source of emboli is not clear 06/29/2020 Discussed the overall case with the neurologist yesterday and he recommended IV heparin and to cut down now aspirin to 81 mg continue with Plavix lady valid by neurology tomorrow. Meantime PT and OT will evaluate the patient. Patient is doing much better today his total complaining of some numbness in the left hand which is not new Constitutional: Denied any fatigue denied any fever. Cardio vascular: denied any chest pain, palpitations Gastrointestinal denied any nausea vomiting Pulmonary: Denied any shortness of breath cough Neurologic as mentioned in HPI All inpatient medications were reviewed and appropriate changes in these medications as dictated in the interval history and assessment and plan. Objective - Vital Signs Vital signs: Vital Signs Temp 98.1 F 06/29/20 12:00 Pulse 50 L 06/29/20 12:00 Resp 14 06/29/20 12:00 BP 145/68 06/29/20 12:00 Pulse Ox 97 06/29/20 12:00 Intake & Output 06/28/20 06/29/20 06/29/20 18:59 06:59 18:59 Intake Total 240 511.303 180 Output Total 800 475 Balance -560 511.303 -295 Weight 87 kg Intake: Intake, IV Titration 61.303 Amount Heparin Sod,Pork in 0.45% 61.303 NaCl 25,000 unit In 0.45 % NaCl 1 250ml.bag @ 11.2 UNITS/KG/HR 9.968 mls/hr IV .Q24H [facility] Rx#: [id number] Oral 240 450 180 Output: Urine 800 475 Other: Voiding Method Indwelling Catheter Indwelling Catheter Indwelling Catheter - Exam PHYSICAL EXAMINATION: GENERAL: The patient is alert and oriented x3, not in any acute distress. Well developed, well nourished. HEENT: Pupils are round and equally reacting to light. EOMI. No scleral icterus. No conjunctival pallor. Normocephalic, atraumatic. No pharyngeal erythema. No thyromegaly. CARDIOVASCULAR: S1 and S2 present. No murmurs, rubs, or gallops. PULMONARY: Chest is clear to auscultation, no wheezing or crackles. ABDOMEN: Soft, nontender, nondistended, normoactive bowel sounds. No palpable organomegaly. MUSCULOSKELETAL: No joint swelling or deformity. EXTREMITIES: No cyanosis, clubbing, or pedal edema. NEUROLOGICAL: Gross neurological examination did not reveal any focal deficits. SKIN: No rashes. 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 Believed to be embolic although embolic source is not clear at similar episodes again today. Patient was started on anticoagulation although there is no evidence of atrial fibrillation patient will be reevaluated with neurology most probably will need to discharge the patient on anticoagulation. No evidence of atrial fibrillation -speech abnormality multiple episodes along with the possible weakness in the left side of the body. History of CVA/TIA History of asthma/COPD, not in activation Gastroesophageal reflux disease History of diverticular disease History of hepatitis B infection Osteoarthritis
[2020-06-29] MEDS: HEPARIN SOD,PORK IN 0.45% NACL 25,000 UNIT in 0.45% NACL 1 250ML.BAG IV SCH (18:10)
[2020-06-30 08:17] LABS: Basophils # (A) 0.1 k/uL (0-0.2); Basophils % (A) 1 %; Eosinophils # (A) 0.1 k/uL (0-0.7); Eosinophils % (A) 2 %; HCT 48.6 % (39.0-53.0); HGB 16.1 gm/dL (13.0-17.5); Lymphocytes # (A) 3.3 k/uL (1.0-4.8); Lymphocytes % (A) 35 %; MCH 31.4 pg (25.0-35.0); MCHC 33.1 g/dL (31.0-37.0); MCV 94.8 fL (80.0-100.0); Monocytes # (A) 0.8 k/uL (0-1.0); Monocytes % (A) 9 %; Neutrophils # (A) 4.8 k/uL (1.3-7.7); Neutrophils % (A) 51 %; Platelet Count 208 k/uL (150-450); RBC 5.13 m/uL (4.30-5.90); RDW 13.2 % (11.5-15.5); WBC 9.3 k/uL (3.8-10.6)
[2020-06-30 08:40] LABS: Calcium 9.3 mg/dL (8.4-10.2); Potassium 3.7 mmol/L (3.5-5.1)
[2020-06-30] MEDS: CLOPIDOGREL 75 MG TAB PO SCH (09:15)
[2020-06-30] MEDS: FAMOTIDINE 20 MG TAB PO SCH (09:15)
[2020-06-30] MEDS: TAMSULOSIN 0.4 MG CAP.ER.24H PO SCH (09:15)
[2020-06-30] MEDS: ASPIRIN 81 MG PO SCH (09:15)
[2020-06-30] MEDS: ATORVASTATIN 40 MG TAB PO SCH (09:15)
[2020-06-30 10:24] VITALS: RESP 17; TEMP 97.6
[2020-06-30] MEDS ORDERED: SODIUM CHLORIDE 0.9% 1,000 ML IV ONE (11:02)
--- NOTE | 2020-06-30 13:29 | P.PN ---
Subjective Progress Note Date: 06/30/20 Patient was seen for a follow-up. Patient states he is doing much better. Patient denies headache at this time. Patient apparently had another episode of left arm paresthesias and weakness on Tuesday morning, 2 days ago. After discussing with Dr. Larsen, we decided to start patient on anticoagulation with heparin IV without bolus. Denies any focal symptoms. Please refer to examination below. Patient's speech is much clear, with no paraphasic errors. Expression and comprehension much improved. Objective - Vital Signs Vital signs: Vital Signs Temp 97.6 F 06/30/20 08:00 Pulse 52 L 06/30/20 08:00 Resp 17 06/30/20 08:00 BP 120/80 06/30/20 08:00 Pulse Ox 98 06/30/20 08:00 Intake & Output 06/29/20 06/30/20 06/30/20 18:59 06:59 18:59 Intake Total 570.113 Output Total 475 200 Balance 95.113 -200 Weight 87 kg Intake: Intake, IV Titration 150.113 Amount Heparin Sod,Pork in 0.45% 150.113 NaCl 25,000 unit In 0.45 % NaCl 1 250ml.bag @ 11.2 UNITS/KG/HR 9.968 mls/hr IV .[facility] Rx#: [id number] Oral 420 Output: Urine 475 200 Other: Voiding Method Indwelling Catheter Urinal - Exam On examination patient is much more alert and awake, in no acute distress. P atient's speech has much improved. Patient able to speak and express clearly. Speech is much more fluent, with no aphasia. Patient able to name all objects. Can repeat. On cranial nerve examination pupils are round and reacting to light, visual yin are full, no neglect on double simultaneous stimulation. Extraocular muscles are intact with no nystagmus. Face is symmetric, tongue protrudes to the midline. Palatal elevation and sensation normal hearing and shoulder shrug normal. On muscle state testing there is mild left pronation but no drift. The strength is completely normal in the arms and legs distally and proximally. Sensory touch is equal with no neglect on double simultaneous stimulation. No definitive ataxia for [id number] testing.. Tone and bulk of muscles normal. Patient states he has been walking to the bathroom and all over without any issue. - Labs CBC & Chem 7: 06/30/20 07:42 06/30/20 07:42 Labs: Abnormal Lab Results - Last 24 Hours (Table) 06/30/20 06/30/20 Range/Units 07:42 07:42 APTT 40.9 H (22.0-30.0) sec BUN 25 H (9-20) mg/dL Creatinine 1.46 H (0.66-1.25) mg/dL Glucose 121 H (74-99) mg/dL Assessment and Plan Assessment: * Recurrent TIA, and CVA involving right hemispheric region. * Borderline blood pressure with no history of hypertension * Lipids are well controlled, patient non-diabetic, non-smoker. * Proximal right ICA stenosis 25-30% per CTA report. Plan: * MRI of the brain was performed, which revealed acute to subacute infarcts in the right frontal and parietal lobes and some small scattered areas in the right MCA territory, correlate for embolic disease. * CTA of head and neck, which revealed intracranial vascular system is patent with no evidence of aneurysm. No significant carotid bifurcation stenosis. Approximately 25-30% stenosis involving the proximal right ICA. Vertebrobasilar system intact. * Transesophageal echocardiogram from 06/27/2020, which revealed no evidence of cardiac source of embolization. Intra-atrial septum intact. Intact left atrial appendage. Normal intracardiac valves. Normal left ventricular dimension and systolic function. Normal cardiac chamber sizes. * Outside records from [facility] from date of admission 06/15/2019 to 06/17/2019. Patient was transferred from [facility] (seen by Dr Burr) to [facility] in that admission. While in the hospital, patient had stroke code activated on 06/16/2019 for new onset left upper extremity paresthesias and mild left facial droop with right-sided headache. MRI of the brain 06/15/2019 showed chronic changes in the periventricular and deep white matter. No acute stroke. 2-D echo with bubble study on 06/16/2019 was negative. Patient was discharged with diagnoses of acute TIA 2, rule out CVA, migraine headache. Patient was discharged on aspirin 81 mg and Plavix 75 mg daily. Patient's significant other states that he never took Plavix after discharge, as all workup was negative. He stayed on aspirin 81 mg. Patient subsequently had a 24 hours EEG on 07/31/2019 which was normal. * Patient is currently on heparin IV. Patient's neurological examination has remarkably improved. Patient has not had any further TIA or CVA since on heparin. Will switch from heparin to Apixaban 5 mg twice a day and aspirin 81 mg daily. DC Plavix. Continue Lipitor 40 mg. * Patient wants to go home. May follow up with neurologist locally in 2-3 weeks.
[2020-06-30 13:53] LABS: Calcium 8.7 mg/dL (8.4-10.2)
[2020-06-30 14:36] VITALS: BP 149/66; PULSE 53
--- NOTE | 2020-06-30 14:54 | P.DS ---
Providers Date of admission: 06/26/20 09:56 Attending physician: León Jimenez MD Consults: 06/26/20 09:57 Consult Physician Routine Consulting Provider: Godwin Borjas Consult Reason/Comments: CVA Do you want consulting provider notified?: Yes Primary care physician: Evelina Hutchison [facility] Course: Possible TIA or strokelike symptoms with weakness on the left side of the body and a speech abnormality. Patient has this expressive aphasia for long time and patient was extensively evaluated in the past with multiple carotid Dopplers his CT scans and MRIs in the past. Patient had similar symptoms again today. Patient is going for another MRI. Neurology validate the patient did believe patient may have obligated migraine and patient was started on verapamil unfortunately patient started having bradycardia because of these were abnormal will discuss with neurology regarding changing it to alternate medications for migraine.by the time I evaluated the patient patient's symptoms resolved. 06/28/2020 Course stroke was called again and patient was lethargic confused and repeat CAT scan and the CT angios were obtained which were within normal limits.since esophageal echocardiogram did not show any significant abnormality.his cousin neurology regarding the need for actual anticoagulation considering multiple episodes of stroke and possible embolic phenomenon although source of emboli is not clear 06/29/2020 Discussed the overall case with the neurologist yesterday and he recommended IV heparin and to cut down now aspirin to 81 mg continue with Plavix lady valid by neurology tomorrow. Meantime PT and OT will evaluate the patient. Patient is doing much better today his total complaining of some numbness in the left hand which is not new 06/30/2020 Patient will be discharged on Eliquis as patient appears to have an embolic stroke although source of for clot is not clearly known. Patient doesn't have any history of atrial fibrillation.. Patient will also continue aspirin. Neurology evaluated the patient today. Patient had acute renal failure probably due to intravascular depletion from azotemia because of which I gave him a bolus of IV fluid and repeated the kidney function again which she found out to be his baseline and creatinine came down to 1.2. Patient will be discharged today. Patient takes diclofenac on as-needed basis for pain although patient didn't take this medication recently this medication will be discontinued because of the renal failure. Patient looks much better today. PHYSICAL EXAMINATION: GENERAL: The patient is alert and oriented x3, not in any acute distress. Well developed, well nourished. HEENT: Pupils are round and equally reacting to light. EOMI. No scleral icterus. No conjunctival pallor. Normocephalic, atraumatic. No pharyngeal erythema. No thyromegaly. CARDIOVASCULAR: S1 and S2 present. No murmurs, rubs, or gallops. PULMONARY: Chest is clear to auscultation, no wheezing or crackles. ABDOMEN: Soft, nontender, nondistended, normoactive bowel sounds. No palpable organomegaly. MUSCULOSKELETAL: No joint swelling or deformity. EXTREMITIES: No cyanosis, clubbing, or pedal edema. NEUROLOGICAL: Gross neurological examination did not reveal any focal deficits. SKIN: No rashes. Assessment and Plan Plan: Cerebro-vascular accident involving the right frontoparietal lobes of the pain Believed to be embolic although embolic source is not clear at patient had multiple such episodes of aphasia. No evidence of atrial fibrillation -speech abnormality multiple episodes along with the possible weakness in the left side of the body. History of CVA/TIA History of asthma/COPD, not in activation Gastroesophageal reflux disease History of diverticular disease History of hepatitis B infection Osteoarthritis Plan - Discharge Summary Discharge Rx Participant: Yes New Discharge Prescriptions: New Apixaban [Eliquis] 5 mg PO BID #60 tab Continue Aspirin EC [Ecotrin Low Dose] 81 mg PO DAILY Omeprazole [PriLOSEC] 20 mg PO BID #60 capsule. Folic Acid 0.8 mg PO DAILY Tamsulosin [Flomax] 0.4 mg PO DAILY Sildenafil Citrate [Viagra] 50 mg PO DAILY PRN PRN Reason: MALE ED Cholecalciferol [Vitamin D3 (25 Mcg = 1000 Iu)] 2,000 unit PO DAILY Multivitamin/Iron/Folic Acid [Centrum Adults Tablet] 1 tab PO DAILY Cyanocobalamin (Vitamin B-12) [Vitamin B-12] 1,000 mcg PO DAILY Discontinued Diclofenac Sodium [Voltaren] 50 mg PO BID Discharge Medication List Aspirin EC [Ecotrin Low Dose] 81 mg PO DAILY 03/23/18 [History] Omeprazole [PriLOSEC] 20 mg PO BID #60 capsule. 03/27/18 [Rx] Folic Acid 0.8 mg PO DAILY 06/14/19 [History] Sildenafil Citrate [Viagra] 50 mg PO DAILY PRN 06/14/19 [History] Tamsulosin [Flomax] 0.4 mg PO DAILY 06/14/19 [History] Cholecalciferol [Vitamin D3 (25 Mcg = 1000 Iu)] 2,000 unit PO DAILY 06/26/20 [History] Cyanocobalamin (Vitamin B-12) [Vitamin B-12] 1,000 mcg PO DAILY 06/26/20 [History] Multivitamin/Iron/Folic Acid [Centrum Adults Tablet] 1 tab PO DAILY 06/26/20 [History] Apixaban [Eliquis] 5 mg PO BID #60 tab 06/30/20 [Rx] Follow up Appointment(s)/Referral(s): Evelina Hutchison MD [Primary Care Provider] - 3 Days Activity/Diet/Wound Care/Special Instructions: Eliquis is covered - copay is $43.50. Rx filled at [facility] with free 30day coupon Discharge Disposition: HOME SELF-CARE
== END 2020-06-30 18:02 | disposition home or self-care (01) | DRG 65 ==
LOC: EC 07:29 → 3SCARD 09:56
PROVIDERS: ADMIT Internal Medicine; ATTEND Internal Medicine
PROC: B246ZZ4 Ultrasonography of Right and Left Heart, Transesophageal (ICD-10-PCS; principal; 2020-06-27 14:35)
DX: I63.40 Cerebral infarction due to embolism of unspecified cerebral artery (principal); G81.94 Hemiplegia, unspecified affecting left nondominant side; N17.9 Acute kidney failure, unspecified; R41.4 Neurologic neglect syndrome; J44.9 Chronic obstructive pulmonary disease, unspecified; R47.01 Aphasia; R29.702 NIHSS score 2; R47.81 Slurred speech; R27.0 Ataxia, unspecified; R29.810 Facial weakness; R10.9 Unspecified abdominal pain; I49.3 Ventricular premature depolarization; I10 Essential (primary) hypertension; I65.21 Occlusion and stenosis of right carotid artery; K21.9 Gastro-esophageal reflux disease without esophagitis; M19.90 Unspecified osteoarthritis, unspecified site; Z79.82 Long term (current) use of aspirin; Z79.1 Long term (current) use of non-steroidal anti-inflammatories (NSAID); Z79.899 Other long term (current) drug therapy; Z86.19 Personal history of other infectious and parasitic diseases; Z86.73 Personal history of transient ischemic attack (TIA), and cerebral infarction without residual deficits; Z86.12 Personal history of poliomyelitis; Z96.653 Presence of artificial knee joint, bilateral; Z87.19 Personal history of other diseases of the digestive system; Z90.89 Acquired absence of other organs; Z86.010 Personal history of colon polyps; Z98.52 Vasectomy status; Z98.890 Other specified postprocedural states; Z88.0 Allergy status to penicillin; Z82.5 Family history of asthma and other chronic lower respiratory diseases; Z81.2 Family history of tobacco abuse and dependence
CPT/HCPCS: 36415; 70450; 70496; 70498; 70551; 71046; 80048; 80053; 80061; 81001; 82607; 82746; 84484; 85025; 85610; 85730; 93005; 93312; 93325; 99285

== ENCOUNTER → 2020-07-31 | Outpatient (CLI) | payer MEDICARE ==
--- NOTE | 2020-09-08 11:57 | EST ---
EXERCISE STRESS Patient was monitored between 31 July 2020 and August 25, 2020. He only wore the monitor for 20 days. The rhythm strip showed sinus mechanism with normal conduction. Episode of sinus bradycardia were noted. Accelerated idioventricular rhythm was noted. No atrial fibrillation was noted. No significant pauses. No symptoms were reported. MMODL / IJN: [id number] /
== END | disposition home or self-care (01) ==
LOC: RADECHMAIN 11:43
PROVIDERS: ATTEND Psychiatry & Neurology Neurology
DX: R00.1 Bradycardia, unspecified (principal); I44.2 Atrioventricular block, complete; I48.91 Unspecified atrial fibrillation
CPT/HCPCS: 93270

== ENCOUNTER 2021-01-20 13:54 | Inpatient (IN) | payer MEDICARE ==
[2021-01-20] MEDS ORDERED: SODIUM CHLORIDE 0.9% 500 ML 500 ML IV STA (14:15)
--- NOTE | 2021-01-20 14:18 | ED ---
General Adult HPI - General Source: patient Mode of arrival: wheelchair Limitations: no limitations <Martin Clemente Martina - Last Filed: 01/20/21 14:55> <EfraSincere anaya Cesar - Last Filed: 01/20/21 15:41> - General Chief complaint: Recheck/Abnormal Lab/Rx Stated complaint: Cardiac issues,Sent by pcp Time Seen by Provider: 01/20/21 14:04 - History of Present Illness Initial comments: Dictation was produced using [employer] dictation software. please excuse any grammatical, word or spelling errors. Chief Complaint: 65-year-old male past medical history of A. fib presents with abnormal EKG. History of Present Illness: 65-year-old value was sent in by his primary care physician for A. fib. Patient is a history of A. fib he takes eliquis. Patient was at his primary care physician's office being evaluated. He was therefore evaluation of fatigue and sleepiness. Patient states that he had his vitals are other and he was found to have A. fib. Patient states he also had a low blood pressure measurement there of 80/60. Patient states his heart rate is normally 50s. He doesn't take Lopressor or metoprolol or any other beta zbigniew medication. Feeling fatigued does not have any other symptoms. No chest pain and abdominal pain. No shortness of breath. The ROS documented in this emergency department record has been reviewed and confirmed by me. Those systems with pertinent positive or negative responses have been documented in the HPI. All other systems are other negative and/or no ncontributory. PHYSICAL EXAM: General Impression: Alert and oriented x3, not in acute distress HEENT: Normocephalic atraumatic, extra-ocular movements intact, pupils equal and reactive to light bilaterally, mucous membranes moist. Cardiovascular: Irregularly irregular Chest: Able to complete full sentences, no retractions, no tachypnea Abdomen: abdomen soft, non-tender, non-distended, no organomegaly Musculoskeletal: Pulses present and equal in all extremities, no peripheral edema Motor: no focal deficits noted Neurological: CN II-XII grossly intact, no focal motor or sensory deficits noted Skin: Intact with no visualized rashes Psych: Normal affect and mood ED course: 65-year-old male sent in from primary care physician's office for A. fib. Vital signs upon arrival are within acceptable limits. Medications reviewed. Patient care sent out to Dr. Dorado for follow-up of pending labs, reevaluation and determination of final disposition. EKG interpretation: Ventricular rate 101, A. fib, QRS 78, QTC 420. No [place] prolongation, no QTC prolongation, no ST or T-wave changes noted. Overall, this EKG is unremarkable (Martin Clemente) - Related Data Home Medications Medication Instructions Recorded Confirmed Aspirin EC [Ecotrin Low Dose] 81 mg PO DAILY 03/23/18 06/26/20 Folic Acid 0.8 mg PO DAILY 06/14/19 06/26/20 Sildenafil Citrate [Viagra] 50 mg PO DAILY PRN 06/14/19 06/26/20 Tamsulosin [Flomax] 0.4 mg PO DAILY 06/14/19 06/26/20 Cholecalciferol [Vitamin D3 (25 2,000 unit PO DAILY 06/26/20 06/26/20 Mcg = 1000 Iu)] Cyanocobalamin (Vitamin B-12) 1,000 mcg PO DAILY 06/26/20 06/26/20 [Vitamin B-12] Multivitamin/Iron/Folic Acid 1 tab PO DAILY 06/26/20 06/26/20 [Centrum Adults Tablet] Previous Rx's Medication Instructions Recorded Omeprazole [PriLOSEC] 20 mg PO BID #60 capsule. 03/27/18 Apixaban [Eliquis] 5 mg PO BID #60 tab 06/30/20 Allergies Allergy/AdvReac Type Severity Reaction Status Date / Time Penicillins AdvReac Unknown Verified 01/20/21 14:01 Childhood Review of Systems ROS Other: All systems not noted in ROS Statement are negative. <Martin Clemente - Last Filed: 01/20/21 14:55> ROS Other: All systems not noted in ROS Statement are negative. <Sincere Dorado - Last Filed: 01/20/21 15:41> ROS Statement: Those systems with pertinent positive or pertinent negative responses have been documented in the HPI. Past Medical History Past Medical History: Asthma, COPD, CVA/TIA, GERD/Reflux, Osteoarthritis (OA) Additional Past Medical History / Comment(s): "Hepatitis B after blood transfusion when he had polio at the age of 2 or 3 yrs", pancreatitis ,diverticular dx, chronic sinus problems-takes prednisone small dose daily.pancreatits,tia History of Any Multi-Drug Resistant Organisms: None Reported Past Surgical History: Joint Replacement, Orthopedic Surgery, Tonsillectomy Additional Past Surgical History / Comment(s): Right arthroscopic knee surgery, colonoscopy with benign polypectomy, EGD, sinus surgery, vasectomy,yumiko total knee replacements Past Anesthesia/Blood Transfusion Reactions: No Reported Reaction Additional Past Anesthesia/Blood Transfusion Reaction / Comment(s): Pt received blood when he was a small child. Past Psychological History: No Psychological Hx Reported Smoking Status: Never smoker Past Alcohol Use History: Heavy Past Drug Use History: None Reported - Past Family History Father Family Medical History: COPD Additional Family Medical History / Comment(s): Father was a smoker. He at the age of 74 or 75yrs. Mother Family Medical History: COPD Additional Family Medical History / Comment(s): Mother is living. She is a smoker. She uses oxygen. <Martin Clemente - Last Filed: 01/20/21 14:55> General Exam Limitations: no limitations <Martin Clemente - Last Filed: 01/20/21 14:55> Course Vital Signs 01/20/21 01/20/21 01/20/21 13:58 14:32 15:28 Temperature 97.8 F Pulse Rate 62 105 H 86 Respiratory 16 16 16 Rate Blood Pressure 138/94 131/80 124/86 O2 Sat by Pulse 99 99 99 Oximetry Medical Decision Making - Lab Data Result diagrams: 01/20/21 14:29 <Martin Clemente - Last Filed: 01/20/21 14:55> - Lab Data Result diagrams: 01/20/21 14:29 01/20/21 14:29 <Sincere Dorado - Last Filed: 01/20/21 15:41> - Medical Decision Making 65-year-old male with no nature fibrillation presenting with A. fib with RVR from the primary care office and the low blood pressure. He states he's felt fatigued with generalized weakness. No central chest pain. He is in A. fib with a rate between 110 and 120. He states this is very fast for him, heart rate typically around 50. Patient has normal CBC, CMP showing a mild elevations or creatinine. Negative troponin. Patient started on Cardizem, he is anticoagulated with Eliquis. Will be admitted to Dr. Felix who is aware. Cardiology placed on consult. (Sincere Dorado) - Lab Data Lab Results 01/20/21 01/20/21 01/20/21 Range/Units 14:29 14:29 14:29 WBC 9.4 (3.8-10.6) k/uL RBC 4.89 (4.30-5.90) m/uL Hgb 15.2 (13.0-17.5) gm/dL Hct 46.6 (39.0-53.0) % MCV 95.2 (80.0-100.0) fL MCH 31.2 (25.0-35.0) pg MCHC 32.7 (31.0-37.0) g/dL RDW 14.0 (11.5-15.5) % Plt Count 191 (150-450) k/uL MPV 8.3 Neutrophils % 64 % Lymphocytes % 25 % Monocytes % 8 % Eosinophils % 2 % Basophils % 1 % Neutrophils # 6.0 (1.3-7.7) k/uL Lymphocytes # 2.3 (1.0-4.8) k/uL Monocytes # 0.7 (0-1.0) k/uL Eosinophils # 0.2 (0-0.7) k/uL Basophils # 0.0 (0-0.2) k/uL Sodium 139 (137-145) mmol/L Potassium 4.5 (3.5-5.1) mmol/L Chloride 107 (98-107) mmol/L Carbon Dioxide 21 L (22-30) mmol/L Anion Gap 11 mmol/L BUN 22 H (9-20) mg/dL Creatinine 1.30 H (0.66-1.25) mg/dL Est GFR (CKD-EPI)AfAm 66 (>60 ml/min/1.73 sqM) Est GFR (CKD-EPI)NonAf 57 (>60 ml/min/1.73 sqM) Glucose 145 H (74-99) mg/dL Calcium 9.1 (8.4-10.2) mg/dL Magnesium 2.1 (1.6-2.3) mg/dL Troponin I <0.012 (0.000-0.034) ng/mL Disposition <Martin Clemente - Last Filed: 01/20/21 14:55> Is patient prescribed a controlled substance at d/c from ED?: No Decision to Admit Reason: Admit from EC Decision Date: 01/20/21 Decision Time: 15:41 <Sincere Dorado - Last Filed: 01/20/21 15:41> Clinical Impression: Atrial fibrillation with RVR Disposition: ADMITTED IP TO THIS HOSP Condition: Stable Referrals: Evelina Hutchison MD [Primary Care Provider] - 1-2 days
[2021-01-20 14:43] LABS: Basophils % (A) 1 %; Eosinophils # (A) 0.2 k/uL (0-0.7); Eosinophils % (A) 2 %; HCT 46.6 % (39.0-53.0); HGB 15.2 gm/dL (13.0-17.5); Lymphocytes # (A) 2.3 k/uL (1.0-4.8); Lymphocytes % (A) 25 %; MCH 31.2 pg (25.0-35.0); MCHC 32.7 g/dL (31.0-37.0); MCV 95.2 fL (80.0-100.0); Mean Platelet Volume 8.3; Monocytes # (A) 0.7 k/uL (0-1.0); Monocytes % (A) 8 %; Neutrophils % (A) 64 %; Platelet Count 191 k/uL (150-450); RBC 4.89 m/uL (4.30-5.90); WBC 9.4 k/uL (3.8-10.6)
[2021-01-20 14:51] LABS: Calcium 9.1 mg/dL (8.4-10.2); Magnesium 2.1 mg/dL (1.6-2.3)
--- NOTE | 2021-01-20 14:58 | XR ---
EXAMINATION TYPE: XR chest 1V portable DATE OF EXAM: 01/20/2021 COMPARISON: 06/26/2020 INDICATION: A. Fib TECHNIQUE: Single frontal view of the chest is obtained. FINDINGS: The heart size is normal. The pulmonary vasculature is normal. The lungs are clear. IMPRESSION: 1. No acute pulmonary process.
[2021-01-20 15:22] LABS: Potassium 4.5 mmol/L (3.5-5.1)
[2021-01-20] MEDS ORDERED: DILTIAZEM DRIP BOLUS FROM BAG 1 MG SOLN IV ONE (15:26)
[2021-01-20] MEDS ORDERED: DILTIAZEM 125 MG in SODIUM CHLORIDE 0.9% 100 ML IV SCH (15:30)
[2021-01-20] MEDS ORDERED: ACETAMINOPHEN TAB 325 MG TAB PO PRN (15:38)
[2021-01-20] MEDS ORDERED: NALOXONE 0.4 MG/ML 1 ML VIAL IV PRN (15:38)
[2021-01-20] MEDS: SODIUM CHLORIDE 0.9% 1,000 ML IV SCH (16:24)
[2021-01-20] MEDS: APIXABAN 5 MG TAB PO SCH (20:19)
[2021-01-20] MEDS: PANTOPRAZOLE 40 MG TABLET PO SCH (20:19)
[2021-01-20] MEDS: ETODOLAC 200 MG CAPSULE PO SCH (20:22)
[2021-01-20] MEDS ORDERED: TAMSULOSIN 0.4 MG CAP.ER.24H PO SCH (21:00)
[2021-01-20] MEDS ORDERED: CYANOCOBALAMIN 500 MCG TAB PO SCH (21:00)
[2021-01-20] MEDS ORDERED: ASPIRIN 81 MG PO SCH (21:00)
[2021-01-20] MEDS ORDERED: amLODIPine 5 MG TAB PO SCH (21:00)
[2021-01-20] MEDS ORDERED: MULTIVITAMINS, THERA 1 EACH TAB PO SCH (21:00)
--- NOTE | 2021-01-21 00:07 | P.HPIM ---
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 Hutchison's office due to abnormal EKG. Patient was seen by his primary care physician due to complaints of generalized weakness, fatigue and sleepiness for the past few days. Patient was found to have A. fib with slightly increased heart rate in 100s and also low blood pressure with SBP in 80s. Patient states that his heart rate normally in the 50s. Currently does not take any beta-blockers at home. On anticoagulation with Eliquis. Due to hypotension and elevated heart rate, patient was sent to ER for evaluation. Otherwise patient denied any complaints of chest pain or shortness of breath. No fever no chills. No nausea vomiting or abdominal pain or diarrhea. Denies any recent illnesses. EKG showed atrial fibrillation with rapid regular rate with heart rate 101 Chest x-ray showed no acute pulmonary process. Laboratory data showed WBC 9.4 hemoglobin 15.2 and platelets 191 BUN 22 and creatinine 1.3 blood sugar is 145 and troponin x1 - COVID-19 PCR not detected. Review of Systems Constitutional: Patient denies any fever or chills . Patient does have generalized weakness and fatigue. Abdomen: Patient denied nausea vomiting and diarrhea and abdominal pain. Cardiovascular: Patient denies any chest pain or short of breath no palpitations. Respiratory: patient denied any cough or sputum production. No shortness of breath Neurologic: Patient denied any numbness or tingling headache. Musculoskeletal: Patient denies any complaints of joint swelling or deformity. Skin: Negative Psychiatric: Negative Endocrine: No heat or cold intolerance. No recent weight gain. Genitourinary: No dysuria or hematuria. All other 14 point ROS negative except the above Past Medical History Past Medical History: Asthma, CVA/TIA, GERD/Reflux, Osteoarthritis (OA) Additional Past Medical History / Comment(s): "Hepatitis B after blood transfusion when he had polio at the age of 2 or 3 yrs", pancreatitis ,diverticular dx, chronic sinus problems.pancreatits,tia History of Any Multi-Drug Resistant Organisms: None Reported Past Surgical History: Joint Replacement, Orthopedic Surgery, Tonsillectomy Additional Past Surgical History / Comment(s): Right arthroscopic knee surgery, colonoscopy with benign polypectomy, EGD, sinus surgery, vasectomy,yumiko total knee replacements Past Anesthesia/Blood Transfusion Reactions: No Reported Reaction Additional Past Anesthesia/Blood Transfusion Reaction / Comment(s): Pt received blood when he was a small child. Past Psychological History: No Psychological Hx Reported Additional Psychological History / Comment(s): Pt resides with his fiancee. He is independent. He drives. No past service. Works in [email or web address] and [employer] Smoking Status: Never smoker Past Alcohol Use History: Heavy Additional Past Alcohol Use History / Comment(s): past heavy use of alcohol-quit 2013 Past Drug Use History: None Reported - Past Family History Father Family Medical History: COPD Additional Family Medical History / Comment(s): Father was a smoker. He at the age of 74 or 75yrs. Mother Family Medical History: COPD Additional Family Medical History / Comment(s): She is a smoker. Medications and Allergies Home Medications Medication Instructions Recorded Confirmed Type Aspirin EC [Ecotrin Low Dose] 81 mg PO HS 03/23/18 01/20/21 History Omeprazole [PriLOSEC] 20 mg PO BID #60 capsule.dr 03/27/18 01/20/21 Rx Folic Acid 0.8 mg PO DAILY 06/14/19 01/20/21 History Tamsulosin [Flomax] 0.4 mg PO HS 06/14/19 01/20/21 History Cholecalciferol [Vitamin D3 (25 2,000 unit PO DAILY 06/26/20 01/20/21 History Mcg = 1000 Iu)] Cyanocobalamin (Vitamin B-12) 1,000 mcg PO HS 06/26/20 01/20/21 History [Vitamin B-12] Multivitamin/Iron/Folic Acid 1 tab PO HS 06/26/20 01/20/21 History [Centrum Adults Tablet] Apixaban [Eliquis] 5 mg PO BID #60 tab 06/30/20 01/20/21 Rx Calcium Carbonate/Vitamin D3 2 tab PO DAILY 01/20/21 01/20/21 History [Calcium 500-Vit D3 15 Mcg (600 Iu)] Diclofenac Sodium [Voltaren] 50 mg PO BID 01/20/21 01/20/21 History Zinc 50 mg PO DAILY 01/20/21 01/20/21 History amLODIPine [Norvasc] 5 mg PO HS 01/20/21 01/20/21 History Allergies Allergy/AdvReac Type Severity Reaction Status Date / Time Penicillins AdvReac Unknown Verified 01/20/21 16:09 Childhood Physical Exam Vitals: Vital Signs Temp Pulse Pulse Resp BP BP Pulse Ox 01/20/21 16:54 97.4 F L 94 16 127/80 99 01/20/21 16:24 87 16 118/61 99 01/20/21 15:28 86 16 124/86 99 01/20/21 14:32 105 H 16 131/80 99 01/20/21 13:58 97.8 F 62 16 138/94 99 Intake and Output 01/20/21 01/20/21 01/20/21 06:59 14:59 22:59 Intake Total 240 Output Total 300 Balance -60 Intake: Oral 240 Output: Urine 300 Other: Weight 90.718 kg 90.718 kg PHYSICAL EXAMINATION: Patient is lying in the bed comfortably, no acute distress, awake alert and oriented.. HEENT: Normocephalic. Neck is supple. Pupils reactive. Nostrils clear. Oral cavity is moist. Ears reveal no drainage. Neck reveals no JVD, carotid bruits, or thyromegaly. CHEST EXAMINATION: Trachea is central. Symmetrical expansion. Lung yin clear to auscultation and percussion. CARDIAC: Normal S1, S2 with no gallops. No murmurs , Irregularly irregular rhythm.. ABDOMEN: Soft. Bowel sounds normal. No organomegaly. No abdominal bruits. Extremities: reveal no edema. No clubbing or cyanosis Neurologically awake, alert, oriented x3 with well-coordinated movements. No focal deficits noted Skin: No rash or skin lesions. Psychiatric: Coperative. Nonsuicidal Musculoskeletal: No joint swelling or deformity. Normal range of motion. Results CBC & Chem 7: 01/20/21 14:29 01/20/21 14:29 Labs: Abnormal Lab Results - Last 24 Hours (Table) 01/20/21 Range/Units 14:29 Carbon Dioxide 21 L (22-30) mmol/L BUN 22 H (9-20) mg/dL Creatinine 1.30 H (0.66-1.25) mg/dL Glucose 145 H (74-99) mg/dL Thrombosis Risk Factor Assmnt - DVT/VTE Prophylaxis DVT/VTE Prophylaxis: Pharmacologic Prophylaxis ordered - Choose All That Apply Each Risk Factor Represents 2 Points: Age 61-74 years Thrombosis Risk Factor Assessment Total Risk Factor Score: 2 Thrombosis Risk Factor Assessment Level: Low Risk Assessment and Plan Assessment: : Atrial fibrillation with rapid ventricular rate. Proximal atrial fibrillation on anticoagulation with Eliquis. Not on beta- blockers at home. heart rate usually in 50s. Hypotension Acute kidney injury likely prerenal Asthmatic exacerbation History of CVA without residual weakness. GERD History of hepatitis B History of alcohol abuse quit in 2013 BPH DVT prophylaxis patient already on Eliquis. Plan: Patient will be continued on gentle IV hydration. Started on Cardizem drip and initiate beta-blockers once heart rate normalizes. TSH level was ordered. Monitor renal function. Continue with home medications and follow-up closely. Cardiology was consulted for further evaluation. Time with Patient: Greater than 30
[2021-01-21 01:59] LABS: Appearance,Urine Clear (Clear); Bacteria,Urine Rare /hpf; Bilirubin,Urine 2+ (Negative); Blood,Urine Large (Negative); Color,Urine Yellow; Glucose,Urine (UA) Negative (Negative); Ketones,Urine Negative (Negative); Leukocyte Esterase,Urine Moderate (Negative); Mucus,Urine Rare /hpf; Nitrite,Urine Negative (Negative); Protein,Urine Negative (Negative); RBC,Urine 105 /hpf (0-5); Specific Gravity,Urine 1.016 (1.001-1.035); Squamous Epithelial Cell,Urine <1 /hpf (0-4); Urobilinogen,Urine <2.0 mg/dL (<2.0); WBC,Urine 52 /hpf (0-5)
[2021-01-21 05:02] VITALS: RESP 16
[2021-01-21] MEDS: SODIUM CHLORIDE 0.9% 1,000 ML IV SCH (06:24)
[2021-01-21] MEDS: PANTOPRAZOLE 40 MG TABLET PO SCH (06:53)
[2021-01-21] MEDS: APIXABAN 5 MG TAB PO SCH (08:19)
[2021-01-21] MEDS: ETODOLAC 200 MG CAPSULE PO SCH (08:19)
[2021-01-21 08:21] VITALS: TEMP 97.9
[2021-01-21 10:05] LABS: Calcium 8.8 mg/dL (8.4-10.2); Potassium 4.4 mmol/L (3.5-5.1)
[2021-01-21 12:24] VITALS: BP 161/75; PULSE 59
--- NOTE | 2021-01-21 12:26 | ECHOF ---
Referral Reason:Lv function MEASUREMENTS -------- HEIGHT: 170.2 cm WEIGHT: 90.7 kg BP: 116/61 RVIDd: 3.3 cm (< 3.3) IVSd: 1.3 cm (0.6 - 1.1) LVIDd: 4.6 cm (3.9 - 5.3) LVPWd: 1.3 cm (0.6 - 1.1) IVSs: 2.0 cm LVIDs: 2.9 cm LVPWs: 1.8 cm LA Diam: 3.7 cm (2.7 - 3.8) LAESV Index (A-L): 22.87 ml/m Ao Diam: 3.0 cm (2.0 - 3.7) AV Cusp: 2.3 cm (1.5 - 2.6) MV EXCURSION: 17.896 mm (> 18.000) MV EF SLOPE: 92 mm/s (70 - 150) EPSS: 0.4 cm MV E Catarino: 0.65 m/s MV DecT: 298 ms MV A Catarino: 0.54 m/s MV E/A Ratio: 1.21 AR PHT: 927 ms FINDINGS -------- Resting bradycardia (HR<60bpm). This was a technically good study. The left ventricular size is normal. There is mild concentric left ventricular hypertrophy. Overa ll left ventricular systolic function is normal with, an EF between 60 - 65 %. The right ventricle is mildly enlarged. Normal LA size by volume 22+/-6 ml/m2. The right atrium is normal in size. Interatrial and interventricular septum intact. The aortic valve is trileaflet and appears structurally normal. There is mild aortic regurgitation. The mitral valve is normal. Mild mitral annular calcification present. The tricuspid valve appears structurally normal. There is no pulmonic regurgitation present. The aortic root size is normal. IVC Not well visulized. There is no pericardial effusion. CONCLUSIONS -------- 1. Resting bradycardia (HR<60bpm). 2. The left ventricular size is normal. 3. There is mild concentric left ventricular hypertrophy. 4. Overall left ventricular systolic function is normal with, an EF between 60 - 65 %. 5. The right ventricle is mildly enlarged. 6. The aortic valve is trileaflet and appears structurally normal. 7. There is mild aortic regurgitation. 8. Mild mitral annular calcification present. 9. There is no pericardial effusion. [employer]: Riana Ambrose RDCS
--- NOTE | 2021-01-21 13:04 | P.CRDCN ---
History of Present Illness Consult date: 01/21/21 History of present illness: HISTORY OF PRESENT ILLNESS: This is a 65-year-old male with a past medical history significant for CVA/TIA, osteoarthritis, GERD, asthma, and paroxysmal atrial fibrillation on Eliquis. Patient follows with a Dr. Leggett in [place], but would like to begin seeing a computed tomography technician at [facility] in [facility]. We have been asked to see the patient in consultation for AFox damon with RVR. Patient examined at the bedside. Patient states he has not been feeling well over the last 3 weeks. He reports feeling tired and not having much energy. He states he attributed this to just "getting old". Patient went to his primary care physician yesterday for evaluation and EKG was performed revealing atrial fibrillation with RVR. Patient states he was told his heart rate was around 120. Patient was also told his blood pressure was low. He was brought to the hospital for further evaluation. Patient was started on an IV Cardizem drip and has since converted to sinus rhythm with a heart rate in the 40s. Patient states his resting heart rate is usually in the 40s. He states he has not been on any beta zbigniew therapy due to his baseline bradycardia. Patient denies any chest pain or pressure. He denies shortness of breath. He denies palpitations. EKG reveals atrial fibrillation with mildly uncontrolled ventricular rate. Heart rate 101. Chest xray no acute pulmonary process Laboratory data: WBC 9.4. Hemoglobin 15.2. Platelet count 191. Sodium 140. Potassium 4.4. BUN 18. Creatinine 1.28. Troponin negative 1. TSH 1.870. Current home cardiac medications include Norvasc 5 mg daily, aspirin 81 mg daily, and Eliquis 5 mg twice a day Most recent echocardiogram obtained in 2018 revealing ejection fraction 60-65% Repeat echocardiogram performed today reveals ejection fraction 60-65% and mild aortic regurgitation Patient underwent SOREN in June 2020 secondary to CVA with no acute findings. REVIEW OF SYSTEMS: At the time of my exam: CONSTITUTIONAL: Denies fever or chills. HEENT: Denies blurred vision, vision changes, or eye pain. Denies hemoptysis CARDIOVASCULAR: Denies chest pain. Denies orthopnea. Denies PND. Denies palpitations RESPIRATORY: Denies shortness of breath. GASTROINTESTINAL: Denies abdominal pain. Denies nausea or vomiting. HEMATOLOGIC: Denies bleeding disorders. GENITOURINARY: Denies any blood in urine. SKIN: Denies pruitis. Denies rash. PHYSICAL EXAM: VITAL SIGNS: Reviewed. GENERAL: Well-developed in no acute distress. HEENT: Head is normocephalic. Pupils are equal, round. Sclerae anicteric. Mucous membranes of the mouth are moist. Neck supple. No JVD or thyromegaly LUNGS: Respirations even and unlabored. Lungs essentially clear to auscultation bilaterally. HEART: Bradycardic. Regular rate and rhythm. S1 and S2 heard. ABDOMEN: Soft. Nondistended. Nontender. EXTREMITIES: Normal range of motion. No clubbing or cyanosis. Peripheral pulses intact. No lower extremity edema NEUROLOGIC: Awake and alert. Oriented x 3. ASSESSMENT: Paroxysmal atrial fibrillation with RVR, currently maintaining sinus mechanism History of CVA/TIA GERD Osteoarthritis Asthma Former nicotine dependence Former alcohol abuse PLAN: Continue current cardiac medications Continue anticoagulation with Eliquis No beta-zbigniew therapy secondary to baseline bradycardia Patient may be discharged home today from a cardiac standpoint Patient may follow up with Dr. Zurita on an outpatient basis Nurse practitioner note has been reviewed by physician. Signing provider agrees with the documented findings, assessment, and plan of care. Past Medical History Past Medical History: Asthma, CVA/TIA, GERD/Reflux, Osteoarthritis (OA) Additional Past Medical History / Comment(s): "Hepatitis B after blood transfusion when he had polio at the age of 2 or 3 yrs", pancreatitis ,diverticular dx, chronic sinus problems.pancreatits,tia History of Any Multi-Drug Resistant Organisms: None Reported Past Surgical History: Joint Replacement, Orthopedic Surgery, Tonsillectomy Additional Past Surgical History / Comment(s): Right arthroscopic knee surgery, colonoscopy with benign polypectomy, EGD, sinus surgery, vasectomy,yumiko total knee replacements Past Anesthesia/Blood Transfusion Reactions: No Reported Reaction Additional Past Anesthesia/Blood Transfusion Reaction / Comment(s): Pt received blood when he was a small child. Past Psychological History: No Psychological Hx Reported Additional Psychological History / Comment(s): Pt resides with his fiancee. He is independent. He drives. No past service. Works in [employer] Smoking Status: Never smoker Past Alcohol Use History: Heavy Additional Past Alcohol Use History / Comment(s): past heavy use of alcohol-quit 2013 Past Drug Use History: None Reported - Past Family History Father Family Medical History: COPD Additional Family Medical History / Comment(s): Father was a smoker. He at the age of 74 or 75yrs. Mother Family Medical History: COPD Additional Family Medical History / Comment(s): She is a smoker. Medications and Allergies Home Medications Medication Instructions Recorded Confirmed Type Aspirin EC [Ecotrin Low Dose] 81 mg PO HS 03/23/18 01/20/21 History Omeprazole [PriLOSEC] 20 mg PO BID #60 capsule. 03/27/18 01/20/21 Rx Folic Acid 0.8 mg PO DAILY 06/14/19 01/20/21 History Tamsulosin [Flomax] 0.4 mg PO HS 06/14/19 01/20/21 History Cholecalciferol [Vitamin D3 (25 2,000 unit PO DAILY 06/26/20 01/20/21 History Mcg = 1000 Iu)] Cyanocobalamin (Vitamin B-12) 1,000 mcg PO HS 06/26/20 01/20/21 History [Vitamin B-12] Multivitamin/Iron/Folic Acid 1 tab PO HS 06/26/20 01/20/21 History [Centrum Adults Tablet] Apixaban [Eliquis] 5 mg PO BID #60 tab 06/30/20 01/20/21 Rx Calcium Carbonate/Vitamin D3 2 tab PO DAILY 01/20/21 01/20/21 History [Calcium 500-Vit D3 15 Mcg (600 Iu)] Diclofenac Sodium [Voltaren] 50 mg PO BID 01/20/21 01/20/21 History Zinc 50 mg PO DAILY 01/20/21 01/20/21 History amLODIPine [Norvasc] 5 mg PO HS 01/20/21 01/20/21 History Allergies Allergy/AdvReac Type Severity Reaction Status Date / Time Penicillins AdvReac Unknown Verified 01/20/21 16:09 Childhood Physical Exam Vitals: Vital Signs Temp Pulse Pulse Resp BP BP Pulse Ox 01/21/21 12:00 59 L 16 161/75 94 L 01/21/21 08:00 97.9 F 53 L 16 116/61 97 01/21/21 04:00 97.7 F 51 L 16 126/60 96 01/20/21 23:55 97.5 F L 71 17 119/64 97 01/20/21 20:00 98 F 66 16 119/74 97 01/20/21 16:54 97.4 F L 94 16 127/80 99 01/20/21 16:24 87 16 118/61 99 01/20/21 15:28 86 16 124/86 99 01/20/21 14:32 105 H 16 131/80 99 01/20/21 13:58 97.8 F 62 16 138/94 99 Intake and Output 01/20/21 01/21/21 01/21/21 22:59 06:59 14:59 Intake Total 240 480 Output Total 300 300 Balance -60 180 Intake: Oral 240 480 Output: Urine 300 300 Other: Voiding Method Toilet Toilet Toilet # Voids 1 Weight 90.718 kg 91 kg Results 01/20/21 14:29 01/21/21 08:26 Cardiac Enzymes 01/20/21 Range/Units 14:29 Troponin I <0.012 (0.000-0.034) ng/mL CBC 01/20/21 Range/Units 14:29 WBC 9.4 (3.8-10.6) k/uL RBC 4.89 (4.30-5.90) m/uL Hgb 15.2 (13.0-17.5) gm/dL Hct 46.6 (39.0-53.0) % Plt Count 191 (150-450) k/uL Comprehensive Metabolic Panel 01/20/21 01/21/21 Range/Units 14:29 08:26 Sodium 139 140 (137-145) mmol/L Potassium 4.5 4.4 (3.5-5.1) mmol/L Chloride 107 110 H (98-107) mmol/L Carbon Dioxide 21 L 26 (22-30) mmol/L BUN 22 H 18 (9-20) mg/dL Creatinine 1.30 H 1.28 H (0.66-1.25) mg/dL Glucose 145 H 103 H (74-99) mg/dL Calcium 9.1 8.8 (8.4-10.2) mg/dL Current Medications Generic Name Dose Route Start Last Admin Trade Name Freq PRN Reason Stop Dose Admin Acetaminophen 650 mg 01/20/21 15:38 Acetaminophen Tab 325 Mg Tab PO Q6HR PRN Mild Pain or Fever > 100.5 Amlodipine Besylate 5 mg 01/20/21 21:00 01/20/21 20:19 Amlodipine 5 Mg Tab PO 5 mg HS ANNIE Administration Apixaban 5 mg 01/20/21 21:00 01/21/21 08:19 Apixaban 5 Mg Tab PO 5 mg BID ANNIE Administration Protocol Aspirin 81 mg 01/20/21 21:00 01/20/21 20:19 Aspirin 81 Mg PO 81 mg HS ANNIE Administration Cyanocobalamin 1,000 mcg 01/20/21 21:00 01/20/21 20:19 Cyanocobalamin 500 Mcg Tab PO 1,000 mcg HS ANNIE Administration Etodolac 200 mg 01/20/21 21:00 01/21/21 08:19 Etodolac 200 Mg Capsule PO 200 mg BID ANNIE Administration Sodium Chloride 1,000 mls @ 75 mls/hr 01/20/21 15:30 01/21/21 06:24 Saline 0.9% IV Not Given .[id number] ANNIE Multivitamins 1 each 01/20/21 21:00 01/20/21 20:19 Multivitamins, Thera 1 Each Tab PO Not Given HS ANNIE Naloxone HCl 0.2 mg 01/20/21 15:38 Naloxone 0.4 Mg/Ml 1 Ml Vial IV Q2M PRN Opioid Reversal Pantoprazole Sodium 40 mg 01/20/21 21:00 01/21/21 06:53 Pantoprazole 40 Mg Tablet PO 40 mg AC-BID ANNIE Administration Tamsulosin HCl 0.4 mg 01/20/21 21:00 01/20/21 20:19 Tamsulosin 0.4 Mg Cap.Er.24h PO 0.4 mg HS ANNIE Administration Intake and Output 01/20/21 01/21/21 01/21/21 22:59 06:59 14:59 Intake Total 240 480 Output Total 300 300 Balance -60 180 Intake: Oral 240 480 Output: Urine 300 300 Other: Voiding Method Toilet Toilet Toilet # Voids 1 Weight 90.718 kg 91 kg 01/20/21 14:29 01/21/21 08:26
--- NOTE | 2021-02-09 09:47 | P.DS ---
Providers Date of admission: 01/20/21 15:38 Expected date of discharge: 01/21/21 Attending physician: Al Felix Consults: 01/20/21 15:38 Consult Physician Routine Consulting Provider: Candace Mejia Consult Reason/Comments: A-fib rvr Do you want consulting provider notified?: Yes Primary care physician: Evelina Hutchison Hospital Course: Discharge diagnosis Atrial fibrillation with rapid ventricular rate. Proximal atrial fibrillation on anticoagulation with Eliquis. Not on beta- blockers at home. heart rate usually in 50s. Hypotension Acute kidney injury likely prerenal Asthmatic exacerbation History of CVA without residual weakness. GERD History of hepatitis B History of alcohol abuse quit in 2013 BPH DVT prophylaxis patient already on Eliquis. 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 Hutchison's office due to abnormal EKG. Patient was seen by his primary care physician due to complaints of generalized weakness, fatigue and sleepiness for the past few days. Patient was found to have A. fib with slightly increased heart rate in 100s and also low blood pressure with SBP in 80s. Patient states that his heart rate normally in the 50s. Currently does not take any beta-blockers at home. On anticoagulation with Eliquis. Due to hypotension and elevated heart rate, patient was sent to ER for evaluation. Otherwise patient denied any complaints of chest pain or shortness of breath. No fever no chills. No nausea vomiting or abdominal pain or diarrhea. Denies a ny recent illnesses. EKG showed atrial fibrillation with rapid regular rate with heart rate 101 Chest x-ray showed no acute pulmonary process. Laboratory data showed WBC 9.4 hemoglobin 15.2 and platelets 191 BUN 22 and creatinine 1.3 blood sugar is 145 and troponin x1 - COVID-19 PCR not detected. Patient was continued on gentle IV hydration. Started on Cardizem drip and initiate beta-blockers once heart rate normalizes. TSH level within normal limits.. Renal function is stable. Patient was started back on liquids and not on beta blockers due to baseline bradycardia. Continue with home medications and follow-up closely. Patient was seen by cardiology. Urine culture showed no growth. Otherwise patient did improve symptomatically. Clear to discharge home. PHYSICAL EXAMINATION: Patient is lying in the bed comfortably, no acute distress, awake alert and oriented.. HEENT: Normocephalic. Neck is supple. Pupils reactive. Nostrils clear. Oral cavity is moist. Ears reveal no drainage. Neck reveals no JVD, carotid bruits, or thyromegaly. CHEST EXAMINATION: Trachea is central. Symmetrical expansion. Lung yin clear to auscultation and percussion. CARDIAC: Normal S1, S2 with no gallops. No murmurs , regular rhythm.. ABDOMEN: Soft. Bowel sounds normal. No organomegaly. No abdominal bruits. Extremities: reveal no edema. No clubbing or cyanosis Neurologically awake, alert, oriented x3 with well-coordinated movements. No focal deficits noted Skin: No rash or skin lesions. Psychiatric: Coperative. Nonsuicidal Musculoskeletal: No joint swelling or deformity. Normal range of motion. Next and Discharge vitals Blood pressure 1160 61 and pulse ox 97% on room air. Heart rate 53. Respirations 16. Patient Condition at Discharge: Stable Plan - Discharge Summary New Discharge Prescriptions: Continue Aspirin EC [Ecotrin Low Dose] 81 mg PO HS Omeprazole [PriLOSEC] 20 mg PO BID #60 capsule. Folic Acid 0.8 mg PO DAILY Tamsulosin [Flomax] 0.4 mg PO HS Cholecalciferol [Vitamin D3 (25 Mcg = 1000 Iu)] 2,000 unit PO DAILY Multivitamin/Iron/Folic Acid [Centrum Adults Tablet] 1 tab PO HS Cyanocobalamin (Vitamin B-12) [Vitamin B-12] 1,000 mcg PO HS Apixaban [Eliquis] 5 mg PO BID #60 tab Diclofenac Sodium [Voltaren] 50 mg PO BID Calcium Carbonate/Vitamin D3 [Calcium 500-Vit D3 15 Mcg (600 Iu)] 2 tab PO DAILY amLODIPine [Norvasc] 5 mg PO HS Zinc 50 mg PO DAILY Discharge Medication List Aspirin EC [Ecotrin Low Dose] 81 mg PO HS 03/23/18 [History] Omeprazole [PriLOSEC] 20 mg PO BID #60 capsule. 03/27/18 [Rx] Folic Acid 0.8 mg PO DAILY 06/14/19 [History] Tamsulosin [Flomax] 0.4 mg PO HS 06/14/19 [History] Cholecalciferol [Vitamin D3 (25 Mcg = 1000 Iu)] 2,000 unit PO DAILY 06/26/20 [History] Cyanocobalamin (Vitamin B-12) [Vitamin B-12] 1,000 mcg PO HS 06/26/20 [History] Multivitamin/Iron/Folic Acid [Centrum Adults Tablet] 1 tab PO HS 06/26/20 [History] Apixaban [Eliquis] 5 mg PO BID #60 tab 06/30/20 [Rx] Calcium Carbonate/Vitamin D3 [Calcium 500-Vit D3 15 Mcg (600 Iu)] 2 tab PO DAILY 01/20/21 [History] Diclofenac Sodium [Voltaren] 50 mg PO BID 01/20/21 [History] Zinc 50 mg PO DAILY 01/20/21 [History] amLODIPine [Norvasc] 5 mg PO HS 01/20/21 [History] Follow up Appointment(s)/Referral(s): Pedro Zurita DO [STAFF PHYSICIAN] - 1 Week (office will call you with an appointment.) Evelina Hutchison MD [Primary Care Provider] - 1-2 days Patient Instructions/Handouts: A-fib (Atrial Fibrillation) (DC) Discharge Disposition: HOME SELF-CARE
== END 2021-01-21 14:24 | disposition home or self-care (01) | DRG 309 ==
LOC: EC 13:54 → 3SCARD 15:38
PROVIDERS: ADMIT Internal Medicine; ATTEND Internal Medicine
DX: I48.0 Paroxysmal atrial fibrillation (principal); N17.9 Acute kidney failure, unspecified; J44.9 Chronic obstructive pulmonary disease, unspecified; I95.9 Hypotension, unspecified; Z20.822 Contact with and (suspected) exposure to COVID-19; K21.9 Gastro-esophageal reflux disease without esophagitis; M19.90 Unspecified osteoarthritis, unspecified site; N40.0 Benign prostatic hyperplasia without lower urinary tract symptoms; F10.11 Alcohol abuse, in remission; Z79.01 Long term (current) use of anticoagulants; Z79.82 Long term (current) use of aspirin; Z79.899 Other long term (current) drug therapy; Z87.891 Personal history of nicotine dependence; Z86.73 Personal history of transient ischemic attack (TIA), and cerebral infarction without residual deficits; Z86.12 Personal history of poliomyelitis; Z86.19 Personal history of other infectious and parasitic diseases; Z98.52 Vasectomy status; Z90.89 Acquired absence of other organs; Z86.010 Personal history of colon polyps; Z96.653 Presence of artificial knee joint, bilateral; Z87.19 Personal history of other diseases of the digestive system; Z98.890 Other specified postprocedural states; Z88.0 Allergy status to penicillin; Z82.5 Family history of asthma and other chronic lower respiratory diseases; Z81.2 Family history of tobacco abuse and dependence
CPT/HCPCS: 36415; 71045; 80048; 81001; 83735; 84443; 84484; 85025; 87086; 87635; 93005; 93306; 96360; 99285

== ENCOUNTER → 2022-09-08 | Outpatient (CLI) | payer MEDICARE ==
--- NOTE | 2022-09-08 16:48 | MR ---
EXAMINATION TYPE: MR shoulder LT wo con DATE OF EXAM: 09/08/2022 COMPARISON: Outside left shoulder x-ray June 23, 2022 HISTORY: Pain for 6 months with difficulty raising arm overhead. TECHNIQUE: Multiplanar, multisequence imaging of the left shoulder is performed without contrast. FINDINGS: Rotator Cuff: Areas of increased signal along the course of the supraspinatus and infraspinatus tendo ns. There is edema surrounding the supraspinatus tendon near the myotendinous junction reference sagi ttal image 13. Focal fluid along the superior aspect of the subscapularis tendon coronal image 23. Ro tator cuff muscle bulk is preserved. Acromioclavicular Joint: Mild to moderate narrowing with moderate capsular hypertrophy. Mild spurring . Glenohumeral Joint: Small to moderate-sized joint effusion. There is narrowing with small spur bony p rojection from the inferior medial humeral head. Labrum: Increased signal consistent with tear through the superior labrum which is frayed. Biceps Tendon: The long head of biceps is in normal location within bicipital groove. Increased centr al linear signal consistent with focal tear coronal image 20 response to axial image 9 Bone marrow signal: Subchondral cystic change involving the anterior osseous glenoid coronal image 19 . Additional subchondral cystic change posterior glenoid coronal image 13 Other: No additional significant abnormality is appreciated. IMPRESSION: 1. At least moderate Degenerative changes as detailed above. 2. Partial tearing along course of the long head of biceps tendon. 3. Superior labral tear. 4. Tendinopathy/interstitial tearing along course of the supraspinatus and infraspinatus tendons.
== END | disposition home or self-care (01) ==
LOC: RADMRIMAIN 11:04
PROVIDERS: ATTEND Orthopaedic Surgery
DX: M19.012 Primary osteoarthritis, left shoulder (principal); M75.112 Incomplete rotator cuff tear or rupture of left shoulder, not specified as traumatic

== ENCOUNTER 2022-11-04 05:48 | Day surgery (SDC) | payer MEDICARE ==
[2022-11-02 09:51] VITALS: BMI 69.0
[2022-11-04] MEDS ORDERED: ONDANSETRON 4 MG/2 ML VIAL IVP ONE (06:10)
[2022-11-04] MEDS ORDERED: DEXAMETHASONE SOD PHOSPHATE 4 MG/ML 1 ML VIAL IV ONE (06:10)
[2022-11-04] MEDS ORDERED: LIDOCAINE 1% (10MG/ML) FOR IV START INTRADERMA PRN (06:10)
[2022-11-04] MEDS: LACTATED RINGERS 1,000 ML IV SCH ×2 (06:43→07:33)
[2022-11-04] MEDS ORDERED: HYDROmorphone 0.5 MG/0.5 ML SYRINGE IVP PRN (07:00)
[2022-11-04] MEDS ORDERED: MIDAZOLAM HCL 10 MG/10 ML VIAL IVP ONE (07:10)
--- NOTE | 2022-11-04 07:19 | HP ---
HISTORY AND PHYSICAL DATE OF SURGERY: 11/04/2022. HISTORY OF PRESENT ILLNESS: Ta Ortiz is a 67-year-old gentleman seen with progressive left shoulder pain. We discussed options for treatment. He elected to proceed with left shoulder arthroscopy. Consent regarding the procedure was obtained. Medical and cardiac clearances were obtained. PAST MEDICAL HISTORY: Hyperlipidemia, hypertension, gastroesophageal reflux disease. PAST SURGICAL HISTORY: Total knee arthroplasty, bilateral knee arthroscopy. DAILY MEDICATIONS: Amlodipine, atorvastatin, diclofenac, Flomax. ALLERGIES: None. SOCIAL HISTORY: Denies current tobacco use. PHYSICAL EVALUATION OF THE LEFT SHOULDER: Flexion is 140 degrees, abduction is 130 degrees, external rotation is 40 degrees with some weakness. There is tenderness along the anterolateral acromion and rotator cuff insertion site. Impingement sign is positive at 90 degrees. Cross-body adduction sign is positive. Drop-arm sign is positive. Distal neurovascular exam is intact. RADIOGRAPHS: Left shoulder radiographs revealed a type 2 acromion along with acromioclavicular joint osteoarthritis and cystic changes of the tuberosity. Left shoulder MRI revealed a partial rotator cuff tear, labral tear, partial long head biceps tendon tear and acromioclavicular joint osteoarthritis. IMPRESSION: 1. Left shoulder impingement with partial rotator cuff tear, labral tear, partial biceps tear. 2. Left shoulder acromioclavicular joint osteoarthritis. 3. Hypertension. 4. Hyperlipidemia. PLAN: Left shoulder arthroscopy with subacromial decompression, possible arthroscopic rotator cuff repair, debridement, labral tear, biceps tenotomy, and Suzie procedure. MMODL / IJN: [id number] /
[2022-11-04] MEDS ORDERED: fentaNYL (PF) 50 MCG/ML 2 ML AMP ONE (07:28)
[2022-11-04] MEDS ORDERED: ROCURONIUM 10 MG/ML (5 ML VIAL) IV ONE (07:28)
[2022-11-04] MEDS ORDERED: SUCCINYLCHOLINE CHLORIDE 200 MG/10 ML VIAL IV ONE (07:28)
[2022-11-04] MEDS ORDERED: PROPOFOL 10 MG/ML 20 ML VIAL IV ONE (07:28)
[2022-11-04] MEDS ORDERED: LIDOCAINE 2% INJ 20 MG/ML (2 ML VIAL) ONE (07:28)
[2022-11-04] MEDS ORDERED: KETOROLAC 15 MG/ML 1 ML VIAL ONE (07:28)
[2022-11-04] MEDS ORDERED: MIDAZOLAM 2 MG/2 ML VIAL ONE (07:28)
[2022-11-04] MEDS ORDERED: GLYCOPYRROLATE 0.2 MG/ML 2 ML VIAL ONE (07:28)
[2022-11-04] MEDS ORDERED: ROPIVACAINE 5 MG/ML 30 ML VIAL ONE (07:28)
--- NOTE | 2022-11-04 08:04 | P.ANPRN ---
Procedure Note - Anesthesia - Nerve Block Performed Left Interscalene Single Time Out Performed: Yes ([id number]) Date of Procedure: 11/04/22 Procedure Start Time: 07:10 Procedure Stop Time: 07:16 Location of Patient: PreOp Indication: Acute Post-Operative Pain, Requested by Surgeon Specifically requested for management of pain by DrFox: Obed Campoverde Sedation Type: Sedate with meaningful contact maintained Preparation: Sterile Prep Position: Supine Catheter: None Needle Types: Pajunk Needle Gauge: 21 Ultrasound used to visualize needle placement: Yes Ultrasound used to observe medication spread: Yes Injectate: 0.5% Ropivacaine (see comment for volume) (30cc) Blood Aspirated: No Pain Paresthesia on Injection Noted: No Resistance on Injection: Normal Image Stored and Saved: Yes Events: Uneventful and Well Tolerated
[2022-11-04 09:32] VITALS: TEMP 97.2
--- NOTE | 2022-11-04 09:32 | P.OP ---
Date of Procedure: 11/04/22 Preoperative Diagnosis: Left shoulder impingement Postoperative Diagnosis: 1. Left shoulder rotator cuff tear 2. Left shoulder partial biceps tendon tear 3. Left shoulder impingement 4. Left shoulder superficial labral tear 5. 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 Left shoulder arthroscopic rotator cuff repair 2. Left shoulder arthroscopic long head biceps tenodesis 3. Left shoulder arthroscopic subacromial decompression 4. Left shoulder arthroscopic debridement labral tear Implants: 2Arthrex 4.75 swivel lock anchors Anesthesia: GETA, regional (Interscalene block) Surgeon: Obed Campoverde Commanding Officer [employer] #1: Nikolai Driver Estimated Blood Loss (ml): 11 Pathology: none sent Condition: stable Disposition: PACU Indications for Procedure: 67-year-old patient seen with progressive left shoulder pain. After having treatment options discussed, he elected to proceed with arthroscopy. Operative Findings: See description of procedure Description of Procedure: Patient underwent an interscalene block by department of anesthesia. The patient was then taken to the operative suite. The patient underwent a general anesthetic by the department of anesthesia. The patient was placed into a lateral position and secured. There was appropriate padding of the bony prominence. Left shoulder was then prepped and draped in normal sterile orthopedic fashion. We placed the extremity in 10 pounds of longitudinal traction. A posterior incision was now made for a posterior working portal site. The trocar and cannula were inserted into the glenohumeral joint. Arthroscopy was initiated. Spinal needle was now inserted anteriorly, to ascertain the anterior working portal site. An incision was now made in that area, a trocar was inserted followed by a probe. There were grade 2/3 chondromalacia changes diffusely about the glenohumeral joint. There was some superficial tearing of the superior labrum. There was significant partial tearing long head biceps tendon. At this point I decided to proceed with a arthroscopic biceps tenodesis. I introduced a cannula through the anterior portal site. With the assistance of Adan RODRIGUEZ now passed a suture around the long head biceps tendon and then I pierced the more distal to that for a loop intact type tenodesis. The biceps tendon was now cut from the superior anchor. I now introduced my punch through the anterior portal site and the interval of the subscapularis tendon. I held in position a Adan RODRIGUEZ The punch creating a hole for insertion of the anchor. The suture was now passed through the eyelet of a Arthrex 4.75 swivel lock anchor. I placed anchor eyelet into the pre-punch hole. I held that there will Adan RODRIGUEZ tensioned the suture in the eliu the anchor with good fixation noted. The residual suture limb was clipped. We noted an excellent loop intact type tenodesis a long head biceps tendon. I now introduced the motorized shaver and debrided out the superficial labral tear. The residual labrum was probed and was found to be stable. Instruments now removed from glenohumeral joint. Utilizing the posterior working portal site, the trocar and cannula were inserted into the subacromial space. Arthroscopy initiated. I made an incision 2 fingerbreadths lateral to the acromion. I introduced my trocar followed by my A rthroCare ablator. I now began ablating thick subacromial bursal tissue, which exposed the undersurface of the anterior acromion. There was diminished subacromial space. There was a very prominent anterior acromion. A motorized bur was introduced and a subacromial decompression was performed. I also excised some osteophytes off the inferior aspect of the distal clavicle. The AC joint was visualized and noted to be moderately arthritic, I did not think enough toward a Suzie procedure. I now turned my attention to the rotator cuff tendon. I noted a full-thickness perforation along the distal supraspinatus tendon. I debrided the margins getting down to stable tendon tissue. The tear/defect measured approximately 1.5 cm and was freely mobile over the footprint. I abraded the footprint with a motorized bur. I now with the assistance of Adan RODRIGUEZ passed 2 everted mattress sutures through good bites of rotator cuff tendon. I punched a hole in the footprint area for insertion of an anchor. I now passed the 4 limbs of suture through the eyelet of a Arthrex 4.75 swivel lock anchor. I placed the eyelet into the pre-punch hole. I held it in position while Adan RODRIGUEZ tensioned all 4 limbs of suture and deployed the anchor with good fixation noted. All residual suture limbs were now clipped. We had good compression of the tendon along the entire footprint. Instruments now removed from the portal sites. All portal sites were approximated with nylon suture. Sterile dressings were applied followed by a shoulder sling. Nikolai RODRIGUEZ assisted in this complex case. The patient was awakened, transferred to a bed, and taken to recovery in stable condition.
[2022-11-04 09:34] VITALS: RESP 16
[2022-11-04 10:34] VITALS: BP 166/67; PULSE 40
== END 2022-11-04 11:17 | disposition home or self-care (01) ==
LOC: OR 05:48
PROVIDERS: ATTEND Orthopaedic Surgery
DX: M75.42 Impingement syndrome of left shoulder (principal); M75.102 Unspecified rotator cuff tear or rupture of left shoulder, not specified as traumatic; S46.212A Strain of muscle, fascia and tendon of other parts of biceps, left arm, initial encounter; G89.18 Other acute postprocedural pain; E78.5 Hyperlipidemia, unspecified; I10 Essential (primary) hypertension; K21.9 Gastro-esophageal reflux disease without esophagitis; Z79.890 Hormone replacement therapy; Z79.899 Other long term (current) drug therapy
CPT/HCPCS: 64415; 76942; 29824; 29827; 29826; C1713 ×3; J2250 ×2; J0330; J1100; J0690; J2405; J3010; J2795; J1885; J2704; J2001

== ENCOUNTER 2022-12-14 09:27 | Day surgery (SDC) | payer MEDICARE ==
[2022-12-10 10:42] VITALS: BMI 31.3
[~2022-12-14 09:27] MED LIST changes: -ACETAMINOPHEN TAB 500 MG TAB PO ONE; -HYDROmorphone 0.5 MG/0.5 ML SYRINGE IVP PRN; +LACTATED RINGERS 1,000 ML IV SCH; -MELOXICAM 7.5 MG TAB PO ONE; -MIDAZOLAM 2 MG/2 ML VIAL IV PRN; -MORPHINE SULFATE 4 MG/ML SYRINGE IV PRN; -ONDANSETRON 4 MG/2 ML VIAL IVP PRN; -TRANEXAMIC ACID 1,000 MG in SODIUM CHLORIDE 0.9% 50 ML IVPB ONE; -ceFAZolin IN SWFI 2 GM/20 ML SYRINGE IVP ONE
[2022-12-14 09:50] VITALS: RESP 16; TEMP 97.7
[2022-12-14] MEDS ORDERED: GLYCOPYRROLATE 0.2 MG/ML 2 ML VIAL ONE (10:10)
[2022-12-14] MEDS ORDERED: PROPOFOL 10 MG/ML 20 ML VIAL IV ONE (10:10)
--- NOTE | 2022-12-14 10:36 | P.PCN ---
Date of Procedure: 12/14/22 Procedure(s) Performed: BRIEF HISTORY: Patient is a 67-year-old pleasant white female scheduled for an elective colonoscopy as a part of screening for colon cancer PROCEDURE PERFORMED: Colonoscopy. PREOPERATIVE DIAGNOSIS: Screening for colon cancer. IV sedation per Anesthesia. PROCEDURE: After informed consent was obtained, the patient, was brought into the endoscopy unit. IV sedation was administered by Anesthesia under continuous monitoring. Digital rectal examination was normal. Initially the Olympus CF-160 flexible video colonoscope was then inserted in the rectum, gradually advanced into the cecum without any difficulty. Careful examination was performed as the scope was gradually being withdrawn. Ileocecal valve and the appendiceal orifice were visualized and appeared normal. Prep was excellent. Mucosa of the cecum, ascending colon, transverse colon, descending colon, sigmoid colon, and rectum appeared normal. Scattered sigmoid diverticulosis Retroflexion was performed in the rectum and no lesions were seen. The patient tolerated the procedure well. IMPRESSION: Normal-appearing colon from rectum to cecum with no evidence of colorectal neoplasia Data sigmoid diverticulosis. RECOMMENDATIONS: Findings of this examination were discussed with the patient as well as his family. He was advised to have a repeat screening colonoscopy in 10 years.
[2022-12-14 11:01] VITALS: BP 127/77; PULSE 53
== END 2022-12-14 11:14 | disposition home or self-care (01) ==
LOC: ORWHC2ENDO 09:27
PROVIDERS: ATTEND Internal Medicine Gastroenterology
DX: Z12.11 Encounter for screening for malignant neoplasm of colon (principal); K57.30 Diverticulosis of large intestine without perforation or abscess without bleeding; I10 Essential (primary) hypertension; J45.909 Unspecified asthma, uncomplicated; K21.9 Gastro-esophageal reflux disease without esophagitis; Z88.0 Allergy status to penicillin; Z79.899 Other long term (current) drug therapy; Z79.01 Long term (current) use of anticoagulants
CPT/HCPCS: J2704; G0121

== ENCOUNTER → 2024-01-02 | Outpatient (CLI) | payer MEDICARE ==
[2024-01-02 18:57] LABS: ALT 104 U/L (10-49); AST 37 U/L (14-35); Alkaline Phosphatase 135 U/L (41-126)
== END | disposition home or self-care (01) ==
LOC: LABWHC1 12:58
PROVIDERS: ATTEND Internal Medicine
DX: R74.8 Abnormal levels of other serum enzymes (principal)
CPT/HCPCS: 36415; 84075; 84450; 84460

== ENCOUNTER → 2024-01-05 | Outpatient (CLI) | payer MEDICARE ==
--- NOTE | 2024-01-05 21:27 | US ---
EXAMINATION TYPE: US liver DATE OF EXAM: 01/05/2024 COMPARISON: 06/13/17 CLINICAL INDICATION: Male, 68 years old with history of R94.5 ABNORMAL RESULTS OF LIVER FUNCTION STUD IES; LFTs TECHNIQUE: Multiple sonographic images of the right upper quadrant are obtained. FINDINGS: EXAM MEASUREMENTS: Liver Length: 13.2 cm Gallbladder Wall: 0.2 cm CBD: 0.3 cm Right Kidney: 9.9x5.0x4.8 cm SOLDERING TECHNICIAN NOTES: Pancreas: Tail obscured by overlying bowel gas Liver: wnl, as best visualized Gallbladder: wnl Evidence for sonographic Perez's sign: No CBD: wnl Right Kidney: No hydronephrosis or masses seen exam very limited by bowel gas, body habitus, and tight rib spaces The visualized portions of the pancreas is unremarkable. The tail is obscured by overlying bowel gas. The visualized portions of liver are unremarkable. No focal lesion identified. Noncirrhotic morpholo gy. Gallbladder is within normal limits without evidence of stones, wall thickening, or surrounding f luid. Negative sonographic Perez's sign. Common bile duct is within normal limits. Right kidney is u nremarkable without evidence for hydronephrosis, solid mass, or nephrolithiasis. IMPRESSION: Limited examination due to overlying bowel gas and patient's body habitus. No ultrasound evidence for an acute process.
== END | disposition home or self-care (01) ==
LOC: RADUSWWP 07:49
PROVIDERS: ATTEND Internal Medicine
DX: R94.5 Abnormal results of liver function studies (principal)
CPT/HCPCS: 76705

== ENCOUNTER → 2024-11-20 | Outpatient (CLI) | payer MEDICARE ==
[2024-11-21 02:29] LABS: Basophils # (A) 0.02 X 10*3/uL (0.00-0.10); Basophils % (A) 0.2 %; Eosinophils # (A) 0.07 X 10*3/uL (0.04-0.35); Eosinophils % (A) 0.8 %; HCT 42.5 % (39.6-50.0); HGB 13.8 g/dL (13.0-17.0); Lymphocytes # (A) 1.34 X 10*3/uL (0.90-5.00); MCH 31.9 pg (27.0-32.0); MCHC 32.5 g/dL (32.0-37.0); MCV 98.4 FL (80.0-97.0); Mean Platelet Volume 12.7 FL (9.5-12.2); Monocytes # (A) 0.96 X 10*3/uL (0.20-1.00); Monocytes % (A) 11.5 %; NRBC Per 100 WBC 0.02 X 10*3/uL (0.00-0.01); Neutrophils # (A) 5.97 X 10*3/uL (1.80-7.70); Neutrophils % (A) 71.3 %; Platelet Count 147 X 10*3/uL (140-440); RBC 4.32 X 10*6/uL (4.40-5.60); RDW 15.6 % (11.5-14.5); WBC 8.38 X 10*3/uL (4.50-10.00)
[2024-11-21 04:20] LABS: % Iron Saturation 31.86 (15.00-50.00); Hepatitis B Surface Antigen Nonreactive (Nonreactive); Hepatitis C IgG Antibody Nonreactive (Nonreactive); Iron 108 UG/DL (65-175); Total Iron Binding Capacity 339 UG/DL (228-460)
[2024-11-21 04:21] LABS: ALT 141 U/L (10-49); AST 96 U/L (14-35); Albumin/Globulin Ratio 1.33 Ratio (1.60-3.17); Alkaline Phosphatase 162 U/L (41-126); BUN/Creat Ratio 11.21 Ratio (12.00-20.00); Blood Urea Nitrogen 15.7 mg/dL (9.0-27.0); Calcium 9.6 mg/dL (8.7-10.3); Chloride 104 mmol/L (96-109); Glucose 107 mg/dL (70-110); Sodium 138 mmol/L (135-145); Total Bilirubin 0.5 mg/dL (0.3-1.2)
[2024-11-21 04:33] LABS: Ceruloplasmin 25.5 mg/dL (20.0-60.0)
== END | disposition home or self-care (01) ==
LOC: LABWHC1 15:57
PROVIDERS: ATTEND Internal Medicine Gastroenterology
DX: R74.8 Abnormal levels of other serum enzymes (principal)
CPT/HCPCS: 36415; 80053; 81596; 82103; 82390; 82728; 83516; 83540; 83550; 84165; 85025; 86038; 86803; 87340

== ENCOUNTER → 2025-03-05 | Outpatient (CLI) | payer MEDICARE ==
[2025-03-05 18:38] LABS: Basophils # (A) 0.04 X 10*3/uL (0.00-0.10); Basophils % (A) 0.5 %; Eosinophils # (A) 0.04 X 10*3/uL (0.04-0.35); Eosinophils % (A) 0.5 %; HCT 43.3 % (39.6-50.0); HGB 14.3 g/dL (13.0-17.0); Immature Grans, Automated 0.40 %; Lymphocytes # (A) 1.07 X 10*3/uL (0.90-5.00); Lymphocytes % (A) 12.6 %; MCH 32.2 pg (27.0-32.0); MCHC 33.0 g/dL (32.0-37.0); MCV 97.5 FL (80.0-97.0); Monocytes # (A) 0.83 X 10*3/uL (0.20-1.00); Monocytes % (A) 9.7 %; NRBC Per 100 WBC 0 X 10*3/uL (0.00-0.01); Neutrophils # (A) 6.51 X 10*3/uL (1.80-7.70); Neutrophils % (A) 76.3 %; Platelet Count 228 X 10*3/uL (140-440); RBC 4.44 X 10*6/uL (4.40-5.60); RDW 13.2 % (11.5-14.5); WBC 8.52 X 10*3/uL (4.50-10.00)
[2025-03-05 18:52] LABS: ALT 37 U/L (10-49); AST 29 U/L (14-35); Albumin 4.4 g/dL (3.8-4.9); Albumin/Globulin Ratio 1.57 Ratio (1.60-3.17); Alkaline Phosphatase 130 U/L (41-126); Anion Gap 12.10 mmol/L (4.00-12.00); BUN/Creat Ratio 13.00 Ratio (12.00-20.00); Blood Urea Nitrogen 18.2 mg/dL (9.0-27.0); Calcium 9.5 mg/dL (8.7-10.3); Carbon Dioxide 23.9 mmol/L (21.6-31.8); Chloride 105 mmol/L (96-109); Globulin 2.8 g/dL (1.6-3.3); Glucose 102 mg/dL (70-110); Magnesium 1.7 mg/dL (1.5-2.4); Potassium 3.8 mmol/L (3.5-5.5); Sodium 141 mmol/L (135-145); Total Protein 7.2 g/dL (6.2-8.2)
[2025-03-05 20:55] LABS: Bilirubin,Urine Negative (Negative); Blood,Urine Large (Negative); Color,Urine Yellow (Yellow); Ketones,Urine Trace (Negative); Nitrite,Urine Negative (Negative); PH, Urine 6.0 (4.0-8.0); Specific Gravity,Urine 1.020 (1.001-1.030); Urobilinogen,Urine 1.0 E.U./DL (>1.0)
[2025-03-05 22:50] LABS: Bacteria,Urine None Seen (None Seen)
[2025-03-05 22:54] LABS: Hepatitis B Surface Antigen Nonreactive (Nonreactive)
== END | disposition home or self-care (01) ==
LOC: LABWHC1 11:54
PROVIDERS: ATTEND Nurse Practitioner Family
DX: N18.9 Chronic kidney disease, unspecified (principal); R74.8 Abnormal levels of other serum enzymes
CPT/HCPCS: 36415; 80053; 81001; 82043; 82570; 83735; 84100; 85025; 86704; 87340